=== PATIENT | female | born 1955 | race Caucasian/White ===

== ENCOUNTER → 2017-07-17 | Outpatient (CLI) | payer MEDICARE, MEDICAID | END | disposition home or self-care (01) | LOC: LAB 15:20 | PROVIDERS: ATTEND Urology | DX: N39.0 Urinary tract infection, site not specified (principal); R32 Unspecified urinary incontinence | CPT/HCPCS: 87086 ==

== ENCOUNTER → 2018-07-07 | Outpatient (CLI) | payer MEDICARE, MEDICAID | END | disposition home or self-care (01) | LOC: LAB 14:13 | PROVIDERS: ATTEND Physician Assistant | DX: N39.0 Urinary tract infection, site not specified (principal) | CPT/HCPCS: 87086; 87088; 87186 ==

== ENCOUNTER → 2018-08-18 | Outpatient (CLI) | payer MEDICARE, MEDICAID | END | disposition home or self-care (01) | LOC: LAB 10:43 | PROVIDERS: ATTEND Physician Assistant | DX: N39.0 Urinary tract infection, site not specified (principal) | CPT/HCPCS: 87086 ==

== ENCOUNTER → 2018-10-14 | Outpatient (CLI) | payer MEDICARE, MEDICAID ==
[2018-10-14 08:10] LABS: Urine Bacteria MOD /hpf (None Seen); Urine Blood Negative /uL (Negative); Urine Specific Gravity 1.008 (1.001-1.035); Urine WBC 5 /hpf (0 - 5)
== END | disposition home or self-care (01) ==
LOC: LAB 07:40
PROVIDERS: ATTEND Physician Assistant
DX: N39.0 Urinary tract infection, site not specified (principal)
CPT/HCPCS: 81001; 87086; 87088; 87186

== ENCOUNTER → 2018-11-13 | Outpatient (CLI) | payer MEDICARE, MEDICAID | END | disposition home or self-care (01) | LOC: LAB 16:21 | PROVIDERS: ATTEND Urology | DX: N39.0 Urinary tract infection, site not specified (principal) | CPT/HCPCS: 87086; 87088; 87186 ==

== ENCOUNTER → 2018-11-18 | Outpatient (CLI) | payer MEDICARE, MEDICAID | END | disposition home or self-care (01) | LOC: US 08:08 | PROVIDERS: ATTEND Urology | DX: N83.292 Other ovarian cyst, left side (principal); N83.291 Other ovarian cyst, right side; N39.0 Urinary tract infection, site not specified | CPT/HCPCS: 76775; 76856 ==

== ENCOUNTER → 2019-03-19 | Day surgery (SDC) | payer MEDICARE, MEDICAID ==
[2019-03-16 10:22] LABS: Basophils # (auto) 0 uL; Basophils % (auto) 0.7 % (0.0-2.0); Eosinophils # (auto) 0.1 uL; Eosinophils % (auto) 2.3 % (0.0-7.0); Hematocrit 47.7 % (36.0-46.0); Hemoglobin 15.7 g/dL (12.2-16.2); Lymphocytes # (auto) 1.8 uL; Lymphocytes % (auto) 32.1 % (10.0-50.0); Mean Corpuscular Hemoglobin 28.3 pg (28.0-32.0); Mean Corpuscular Volume 85.6 fL (80.0-100.0); Monocytes # (auto) 0.6 uL; Monocytes % (auto) 9.9 % (0.0-12.0); Neutrophils # (auto) 3.1 uL; Nucleated Red Blood Cells % 0.1 %; Platelet Count (auto) 228 10^3/uL (140-450); Red Blood Cells 5.57 10^6/uL (4.0-5.20); Red Cell Distribution Width 14.4 % (11.8-14.3); White Blood Cell 5.7 10^3/uL (4.4-10.8)
[2019-03-16 10:26] LABS: Urine Bacteria FEW /hpf (None Seen); Urine Blood Negative /uL (Negative); Urine Specific Gravity 1.009 (1.001-1.035); Urine WBC 7 /hpf (0 - 5)
[2019-03-16 10:40] LABS: INR 0.94 (0.9-1.15); Partial Thromboplastin Time 24.1 sec (23.64-32.05)
[2019-03-16 11:32] LABS: Potassium 4.2 mmol/L (3.5-5.1)
[2019-03-16 11:38] LABS: Albumin 3.8 g/dL (3.4-5.0); Bilirubin, Total 0.7 mg/dL (0.2-1.0); Calcium 9.7 mg/dL (8.5-10.1)
[~2019-03-19] VITALS: Ht 160 cm; Wt 77.1 kg
[~2019-03-19] MED LIST: CELE200C PO; CHOL500023 PO; CIPROFLOXACIN 400MG/200ML 200 ML IV ONE; DIAZ10TA PO; DULO60CA PO; HYDROmorphone HCL 2 MG/ML VL IV PRN; METF-370 PO; METOCLOPRAMIDE HCL 5MG/ml INJ 2ml VIAL IV ONE; MIDAZOLAM HCL 1MG/1ML-2 ML VIAL ONE; MIRT30TA PO; ONDANSETRON HCL 4 MG/2 ML VIAL IV ONE; ONDANSETRON HCL 4 MG/2 ML VIAL ONE; OXYB5TAB24 PO; PROPOFOL 10 MG/ML 20 ML IV ONE; SODIUM CHLORIDE LOCK 10 ML ONE; SULF800T7 PO; TIZA4CAP PO; TRAM50TA2 PO; fentaNYL CITRATE 100 MCG/2 ML VL ONE
[2019-03-19 12:23] VITALS: BP 148/76
== END | disposition home or self-care (01) ==
LOC: SUR 07:36
PROVIDERS: ATTEND Urology
DX: N32.89 Other specified disorders of bladder (principal); N31.9 Neuromuscular dysfunction of bladder, unspecified; N39.0 Urinary tract infection, site not specified; E11.9 Type 2 diabetes mellitus without complications; F32.9 Major depressive disorder, single episode, unspecified; F41.9 Anxiety disorder, unspecified; E66.9 Obesity, unspecified; Z68.30 Body mass index [BMI] 30.0-30.9, adult; Z88.8 Allergy status to other drugs, medicaments and biological substances; Z79.899 Other long term (current) drug therapy; Z87.891 Personal history of nicotine dependence; Z98.51 Tubal ligation status; Z98.890 Other specified postprocedural states
CPT/HCPCS: 36415; 52000; 80053; 81001; 82962; 85025; 85610; 85730; C1769; J0744; J2250; J2405; J2704; J3010; J7030

== ENCOUNTER → 2019-06-12 | Outpatient (CLI) | payer MEDICARE, MEDICAID ==
[~2019-06-12] MED LIST changes: -CIPROFLOXACIN 400MG/200ML 200 ML IV ONE; -HYDROmorphone HCL 2 MG/ML VL IV PRN; -METOCLOPRAMIDE HCL 5MG/ml INJ 2ml VIAL IV ONE; -MIDAZOLAM HCL 1MG/1ML-2 ML VIAL ONE; -ONDANSETRON HCL 4 MG/2 ML VIAL IV ONE; -ONDANSETRON HCL 4 MG/2 ML VIAL ONE; -PROPOFOL 10 MG/ML 20 ML IV ONE; -SODIUM CHLORIDE LOCK 10 ML ONE; -fentaNYL CITRATE 100 MCG/2 ML VL ONE
== END | disposition home or self-care (01) ==
LOC: LAB 11:46
PROVIDERS: ATTEND Nurse Practitioner Family
DX: N39.0 Urinary tract infection, site not specified (principal)
CPT/HCPCS: 87086; 87088; 87186

== ENCOUNTER → 2019-09-11 | Outpatient (CLI) | payer MEDICARE, MEDICAID ==
[2019-09-11 15:36] LABS: Urine Bacteria FEW /hpf (None Seen); Urine Blood Negative /uL (Negative); Urine Specific Gravity 1.014 (1.001-1.035); Urine WBC 9 /hpf (0 - 5)
== END | disposition home or self-care (01) ==
LOC: LAB 14:18
PROVIDERS: ATTEND Hospitalist
DX: N39.0 Urinary tract infection, site not specified (principal)
CPT/HCPCS: 81001; 87086

== ENCOUNTER 2025-02-11 15:08 | Inpatient (IN) | payer MEDICARE, MEDICAID ==
[~2025-02-11] VITALS: Ht 160 cm; Wt 61.5 kg
[~2025-02-11 15:08] MED LIST changes: -DIAZ10TA PO; +DIAZ10TA66 PO; -DULO60CA PO; +DULO60CA41 PO; +MIRT-94 PO; -MIRT30TA PO; +SULF800T23 PO; -SULF800T7 PO
--- NOTE | 2025-02-11 15:32 | ED.PDOC ---
Musculoskeletal HPI Comments 69 y/o F, EM, presents to the ED Via EMS for CC s/p right femur injury. Per EMS, patient is coming from [facility] where she presented for right hip pain after her inpatient care manager rn was moving her right extremity to place a Giron catheter. EMS states, patient had imagining done and was refereed to the ED by Dr. Pemberton for a further evaluation regarding a surgical consult for displaced right femoral fracture. Patient endorses, being a paraplegic. Patient denies any current pain or other musculoskeletal injury. No other symptoms or modifying factors present at this time. Chief Complaint: Lower Extremity Time Seen by MD: 15:10 Reviewed Notes: Nurses Notes, Photo Checker Notes, Medications, Allergies Allergies: Uncoded Allergies: BLOOD THINNERS (Adverse Reaction, Severe, 03/16/19) Home Meds Reported Medications Cholecalciferol (VITAMIN D3) 5,000 Unit Tab, 5000 UNIT PO DAILY, TAB 03/16/19 Metformin Hydrochloride (Metformin Hcl) 500 Mg Tab, 500 MG PO DAILY for 30 Days, MG 03/16/19 Mirtazapine (REMERON) 30 Mg Tab, 1 TAB PO HS, #30 TAB 1 Refill 03/16/19 Celecoxib (Celebrex) 200 Mg Cap, 1 CAP PO BID, #30 CAP 2 Refills 03/16/19 Duloxetine Hcl (Cymbalta) 60 Mg Cap, 1 CAP PO DAILY, #90 CAP 3 Refills 03/16/19 Sulfamethoxazole W/Trimethopri (Trimethoprim/Sulfamethoxa) 1 Tab Tab, 1 TAB PO HS, #14 TAB 03/16/19 Diazepam (Valium) 10 Mg Tab, 1 TAB PO PRN, #30 TAB 03/16/19 Tizanidine Hydrochloride (Zanaflex) 4 Mg Cap, 1 CAP PO HS, #30 CAP 03/16/19 Tramadol Hcl (Tramadol Hcl) 50 Mg Tab, 2 TAB PO Q6HP PRN for MODERATE PAIN, MG 03/16/19 Oxybutynin Chloride (Ditropan Xl) 5 Mg Tab, 5 MG PO TID for 30 Days, MG 03/16/19 Information Source: Patient, Emergency Med Personnel Mode of Arrival: EMS Location: Right Extremity Location: Femur, Hip Timing: Minutes Prehospital treatment: None Severity: Moderate Able to Move Extremity: No Bear Weight: No Pain: Moderate Mechanism: Twisting Onset of Symptoms: After Trauma Symptoms: Pain DVT Risk Factors: NONE Last Tetanus: Unknown History of: Hip Fracture Associated signs and symptoms: Hip pain Past Medical History PAST MEDICAL HISTORY: Denies Surgical History: Unknown LITIGATION COUNSEL History: Unknown Family History Family History: Unknown Social History Smoker: Non-Smoker Alcohol: Denies ETOH Use Drugs: Denies Drug Use Lives In: Home Constitutional: denies: chills, diaphoresis, fatigue, fever, malaise, sweats, weakness, others EENTM: denies: blurred vision, double vision, ear bleeding, ear discharge, ear drainage, ear pain, ear ringing, eye pain, eye redness, hearing loss, mouth pain, mouth swelling, nasal discharge, nose bleeding, nose congestion, nose pain, photophobia, tearing, throat pain, throat swelling, voice changes, others Respiratory: denies: cough, hemoptysis, orthopnea, SOB at rest, shortness of breath, SOB with excertion, stridor, wheezing, others Cardiovascular: denies: chest pain, dizzy spells, diaphoresis, Dyspnea on exertion, edema, irregular heart beat, left arm pain, lightheadedness, palpitations, PND, syncope, others Gastrointestinal: denies: abdomen distended, abdominal pain, blood streaked bowels, constipated, diarrhea, dysphagia, difficulty swallowing, hematemesis, melena, nausea, poor appetite, poor fluid intake, rectal bleeding, rectal pain, vomiting, others Genitourinary: denies: abnormal vagina bleeding, burning, dyspareunia, dysuria, flank pain, frequency, hematuria, incontinence, pain, , vagina d ischarge, urgency, others Neurological: denies: dizziness, fainting, headache, left sided numbness, left sided weakness, numbness, paresthesia, pre-existing deficit, right sided numbness, right sided weakness, seizure, speech problems, tingling, tremors, weakness, others Musculoskeletal: reports: others (right hip pain); denies: back pain, gout, joint pain, joint swelling, muscle pain, muscle stiffness, neck pain Integumetry: denies: bruises, change in color, change in hair/nails, dryness, laceration, lesions, lumps, rash, wounds, others Allergic/Immunocompromised: denies: Difficulty Healing, Frequent Infections, Hives, Itching, others Hematologic/Lymphatic: denies: anemia, blood clots, easy bleeding, easy bruising, swollen glands, others Endocrine: denies: excessive hunger, excessive sweating, excessive thirst, excessive urination, flushing, intolerance to cold, intolerance to heat, unexplained weight gain, unexplained weight loss, others Psychiatric: denies: anxiety, bipolar disorder, depression, hopeless, panic disorder, schizophrenia, sleepless, suicidal, others All Other Systems: Reviewed and Negative Physical Exam General Appearance: Moderate Distress ([id number] distress due to right- sided hip pain concerns. At time of evaluation, patient did not need additional pain medication.), Normal HEENT: Normal ENT Inspection, Pharynx Normal, TMs Normal Neck: Full Range of Motion, Non-Tender, Normal, Normal Inspection Respiratory: Chest Non-Tender, Lungs Clear, No Accessory Muscle Use, No Respiratory Distress, Normal Breath Sounds Cardiovascular: No Edema, No JVD, No Murmur, No Gallop, Normal Peripheral Pulses, Regular Rate/Rhythm Breast Exam: Deferred Gastrointestinal: No Organomegaly, Non Tender, No Pulsatile Mass, Normal Bowel Sounds, Soft Genitalia: Deferred Pelvic: Deferred Rectal: Deferred Extremities: Other ( Patient displays exquisite tenderness to palpation throughout the right hip on range of motion attempts. Patient appears to have a femoral neck fracture. Valgus display of the right leg.) Neurologic: Alert Cerebellar Function: Normal Reflexes: NOT DONE Skin: Dry, Wounds ( patient displays significant bedsores out the sacral region as well as hip region. Wounds are penetrating. Wounds will require imaging evaluation.) Lymphatic: No Adenopathy Was a procedure done? Was a procedure done?: No Differential Diagnosis EXT Differential Diagnosis: Fracture X-Ray, Labs, Meds, VS Vital Signs Date Time Temp Pulse Resp B/P (MAP) Pulse Ox O2 Delivery O2 Flow Rate FiO2 02/11/25 21:21 92 18 106/65 02/11/25 19:53 93 21 118/55 (76) 95 02/11/25 19:50 18 Room Air* 0 21 02/11/25 17:15 94 22 94/46 (62) 95 02/11/25 16:13 97.7 95 18 104/44 (64) 96 97.7 02/11/25 16:08 Room Air* 0 21 02/11/25 15:13 97.9 102 14 118/72 (87) 95 97.9 Lab Test 02/11/25 20:47 02/11/25 18:44 02/11/25 16:19 Range/Units Urine Color Yellow Yellow Urine Clarity Turbid H Clear Urine pH 6.0 5.0-9.0 Urine Specific Pierce 1.031 1.001-1.035 Urine Protein 1+ H Negative Urine Ketones 1+ H Negative Urine Blood Negative Negative /uL Urine Nitrite Negative Negative Urine Bilirubin Negative Negative Urine Urobilinogen Normal Negative mg/dL Urine Leukocyte Esterase Trace Negative /uL Urine RBC <1 0 - 4 /hpf Urine Microscopic WBC 25 H 0-5 /HPF Urine Squamous Epithelial Cells Mod <5 /hpf Urine Bacteria Few H None Seen /hpf Urine Hyaline Casts Mod 0 - 2 /lpf Urine Mucus Few None Seen Urine Yeast (Budding) Few None Seen /hpf Urine Glucose Normal Normal mg/dL Lactic Acid Level 3.0 *H 3.4 *H 0.4-2.0 mmol/L White Blood Count 13.8 H 4.4-10.8 10^3/uL Red Blood Count 3.44 L 4.0-5.20 10^6/uL Hemoglobin 8.2 L 12.2-16.2 g/dL Hematocrit 26.0 L 36.0-46.0 % Mean Corpuscular Volume 75.7 L 80.0-100.0 fL Mean Corpuscular Hemoglobin 23.9 L 28.0-32.0 pg Mean Corpuscular Hemoglobin Concent 31.6 L 32.0-36.0 g/dL Red Cell Distribution Width 18.0 H 11.8-14.3 % Platelet Count 519 H 140-450 10^3/uL Mean Platelet Volume 7.0 6.9-10.8 fL Neutrophils (%) (Auto) 89.5 H 37.0-80.0 % Lymphocytes (%) (Auto) 5.5 L 10.0-50.0 % Monocytes (%) (Auto) 5.0 0.0-12.0 % Eosinophils (%) (Auto) 0.0 0.0-7.0 % Basophils (%) (Auto) 0.0 0.0-2.0 % Neutrophils # (Auto) 12.4 H 1.6-8.6 10 ^3/uL Lymphocytes # (Auto) 0.8 0.4-5.4 10 ^3/uL Monocytes # (Auto) 0.7 0-1.3 10 ^3/uL Eosinophils # (Auto) 0 0-0.8 10 ^3/uL Basophils # (Auto) 0 0-0.2 10 ^3/uL Nucleated Red Blood Cells 0.0 % Prothrombin Time 11.2 9.3-11.8 sec Prothrombin Time INR 1.06 0.9-1.15 Sodium Level 136 136-145 mmol/L Potassium Level 3.7 3.5-5.1 mmol/L Chloride Level 103 98-107 mmol/L Carbon Dioxide Level 23 20-31 mmol/L Anion Gap 10 5-15 Blood Urea Nitrogen 19 9-23 mg/dL Creatinine 0.44 L 0.550-1.02 mg/dL Glomerular Filtration Rate Calc 104 >90 mL/min BUN/Creatinine Ratio 43.2 H 10.0-20.0 Serum Glucose 140 H 74-106 mg/dL Calcium Level 10.1 8.7-10.4 mg/dL Total Bilirubin 0.4 0.2-1.0 mg/dL Aspartate Amino Transferase (AST) 11 L 13-40 U/L Alanine Aminotransferase (ALT) < 9 7-40 U/L Alkaline Phosphatase 79 46-116 U/L Troponin I High Sensitivity < 3 L </=34 ng/L Total Protein 6.0 5.7-8.2 g/dL Albumin 3.3 3.2-4.8 g/dL Lipase 20 12-53 U/L Current Medications Medications (Trade) Dose Ordered Sig/Adore Route Start Time Stop Time Status Last Admin Sodium Chloride 1,000 ml @ 150 mls/hr Q6H40M ONCE IV 02/11/25 17:30 02/12/25 00:09 02/11/25 17:31 Hydromorphone HCl (Dilaudid Injection) 0.5 mg ONCE ONCE IV 02/11/25 21:15 02/11/25 21:16 DC 02/11/25 21:[address] [address] Ph: [phone] DIAGNOSTIC IMAGING Diagnostic Imaging Report : [id number] Signed PATIENT: AYO JENSEN ACCT: [id number] UNIT: [id number] : 1955 LOC: ER ROOM / BED: / AGE / SEX: 69 / F ADM STATUS: REG ER SERVICE 1602 ORDERING PHYSICIAN: BAILEY KOCH PAC PROCEDURE(s): CXRP - CHEST PORTABLE REASON: Shortness of breath ORDER NUMBER(s): [id number], ACCESSION NUMBER(s): [id number] CHEST RADIOGRAPH Indication: Shortness of breath Technique: Single frontal view of the chest was obtained COMPARISON: None FINDINGS: Lines and Tubes: Right PICC in satisfactory position Lungs: Congestion Pleura: No effusion. No pneumothorax. Cardiomediastinal contours: Unremarkable Bones: Unremarkable IMPRESSION: Pulmonary vascular congestion Right PICC in satisfactory position. ATED BY: JIMMY FORBES MD DICTATED DATE/TIME: 02/11/25 163 SIGNED BY: JIMMY FORBES MD SIGNED DATE/TIME: 02/11/25 163 CC: X-Ray, Labs, Meds, VS Comment Contacted Dr. Pemberton and discuss the original imaging study which Dr. Pemberton reviewed himself. He advised him in the patient and he will perform an ORIF procedure tomorrow. Patient received a prophylactic Zosyn dispensing.Additional studies were ascertain due to significant bed sores. It appears that there is an anastomose from those bed sores towards the hip. Technically, patient is suffering from an open fracture. Patient will require extensive wound management and home health would management moving forward. Time of 1ST Reevaluation: 21:50 Reevaluation 1ST: Unchanged Consultation: Surgery Patient Education/Counseling: Diagnosis, Treatment Family Education/Counseling: Diagnosis, Treatment, No Family Present Departure 1 Departure Time of Disposition: 21:52 Impression: Primary Impression: Femoral neck fracture Additional Impressions: Cellulitis Anemia Elevated lactic acid level Disposition: ADMITTED INPATIENT Condition: Fair Discharged With: Self, Relative Critical Care Note Critical Care Time?: No Stability Stability form required: No Heart Score Heart Score: Heart Score Response (Comments) Value History N/A 0 EKG N/A 0 Age N/A 0 Risk Factors N/A 0 Troponin N/A 0 Total 0 I personally scribed for BAILEY KOCH PAC ([email or web address]) on 02/11/25 at 15:32. Electronically submitted by Carla Robin ([email or web address]). I personally scribed for BAILEY KOCH PAC ([email or web address]) on 02/11/25 at 17:48. Electronically submitted by Carla Robin ([email or web address]). BAILEY KOCH PAC Feb 11, 2025 15:32
--- NOTE | 2025-02-11 16:35 | DVH ---
CHEST RADIOGRAPH Indication: Shortness of breath Technique: Single frontal view of the chest was obtained COMPARISON: None FINDINGS: Lines and Tubes: Right PICC in satisfactory position Lungs: Congestion Pleura: No effusion. No pneumothorax. Cardiomediastinal contours: Unremarkable Bones: Unremarkable IMPRESSION: Pulmonary vascular congestion Right PICC in satisfactory position.
[2025-02-11 16:38] LABS: Basophils # (auto) 0 10 ^3/uL (0-0.2); Eosinophils # (auto) 0 10 ^3/uL (0-0.8); Hemoglobin 8.2 g/dL (12.2-16.2); Lymphocytes # (auto) 0.8 10 ^3/uL (0.4-5.4); Lymphocytes % (auto) 5.5 % (10.0-50.0); Mean Corpuscular Hemoglobin 23.9 pg (28.0-32.0); Mean Corpuscular Hgb Conc. 31.6 g/dL (32.0-36.0); Mean Corpuscular Volume 75.7 fL (80.0-100.0); Monocytes # (auto) 0.7 10 ^3/uL (0-1.3); Neutrophils # (auto) 12.4 10 ^3/uL (1.6-8.6); Neutrophils % (auto) 89.5 % (37.0-80.0); Platelet Count (auto) 519 10^3/uL (140-450); Red Blood Cells 3.44 10^6/uL (4.0-5.20); White Blood Cell 13.8 10^3/uL (4.4-10.8)
[2025-02-11 16:54] LABS: INR 1.06 (0.9-1.15); Prothrombin Time 11.2 sec (9.3-11.8)
[2025-02-11 16:58] LABS: Albumin 3.3 g/dL (3.2-4.8); Alkaline Phosphatase 79 U/L (46-116); Anion Gap 10 (5-15); BUN/Creatinine Ratio 43.2 (10.0-20.0); Bilirubin, Total 0.4 mg/dL (0.2-1.0); Blood Urea Nitrogen 19 mg/dL (9-23); Calcium 10.1 mg/dL (8.7-10.4); Carbon Dioxide 23 mmol/L (20-31); Chloride 103 mmol/L (98-107); Lipase 20 U/L (12-53); Potassium 3.7 mmol/L (3.5-5.1)
[2025-02-11 17:01] LABS: Alanine Aminotransferase < 9 U/L (7-40); Aspartate Aminotransferase 11 U/L (13-40); Glucose 140 mg/dL (74-106); Sodium 136 mmol/L (136-145)
[2025-02-11 17:15] LABS: Lactic Acid w/Reflex 3.4 mmol/L (0.4-2.0)
[2025-02-11] MEDS: SODIUM CHLORIDE 0.9% 1,000 ML IV ONE (17:31)
[2025-02-11 19:50] VITALS: RESP 18
[2025-02-11] MEDS: IOHEXOL 300 MG/ML 100ML BOTTLE IJ ONE (20:25)
--- NOTE | 2025-02-11 21:14 | DVH ---
Exam: CT CT AB PEL WITH IV CON ONLY History: Evaluation of penetrating bedsores throughout the sacrum Comparison Study: None Contrast: Type of contrast: Contrast injected: Contrast wasted: 0 TECHNIQUE: Multidetector CT of abdomen pelvis with IV contrast. Radiation Dose Information: CT Dose: CTDI volume is 8.36 mGy. Dose-length product is 498.39 mGy*cm FINDINGS: There are bilateral large effusions in the lung bases consolidative atelectasis involving the right p osterior lower lobe heart is still within normal limits for size the esophagus is unremarkable. Adrenals and kidneys demonstrate a simple cyst involving the right kidney. There are dense calcifica tions in the abdominal aorta including the origins of the superior mesenteric artery in the renal art eries. Gallbladder is filled with fluid there is anasarca There is a dislocated fracture involving the proximal right femur fracture is sub trochanteric. There appears to be a large abscess involving the right lower extremity associated with a fracture. And th ere is gas tracking along the right femoral shaft gas is tracking along the right flank. Patient has a large stool burden small bowel is dilated the normal limits dilated fluid 4 cm which is abnormal. P ptia has a benavides catheter in the bladder uterus is retroverted appear to be large bilateral ovarian cysts the left cyst measures 6.05 cm in the right ovarian cyst measures 6.7 cm IMPRESSION: There is a fractured right femur subtrochanteric and is dislocated and there is a large abscess assoc iated with the fracture and there is gas tracking along the right femoral shaft and also along the ri ght flank where there is an open wound and associated with a fracture. There is severe constipation and There is also small-bowel ileus patient appears to have bilateral ov mattie cysts. There are bilateral large pleural effusions lung bases along with consolidate in the rig ht posterior lung base. There is also anasarca.
[2025-02-11] MEDS: HYDROmorphone HCL 2 MG/ML VL/or syr IV ONE (21:21)
[2025-02-11 21:36] LABS: Urine Bacteria FEW /hpf (None Seen); Urine Blood Negative /uL (Negative); Urine Budding Yeast FEW /hpf (None Seen); Urine Clarity Turbid (Clear); Urine Color Yellow (Yellow); Urine Hyaline Cast MOD /lpf (0 - 2); Urine Mucus FEW (None Seen); Urine Protein, UAD 1+ (Negative); Urine Specific Gravity 1.031 (1.001-1.035); Urine Squamous Epithelial Cell MOD /hpf (<5); Urine Urobilinogen Normal (Negative); Urine WBC 25 /HPF (0-5)
[2025-02-11] MEDS: PIPERACILLIN-TAZOB 3.375GM 100 ML IV ONE (22:15)
[2025-02-11] MEDS ORDERED: VANCOMYCIN PER PHARMACY 0 MG IV SCH (23:15)
[2025-02-11] MEDS ORDERED: ONDANSETRON HCL 4 MG/2 ML VIAL IV PRN (23:15)
--- NOTE | 2025-02-11 23:17 | DVHHPRES ---
History of Present Illness Resident Creating Document: LIONEL REID RESIDENT History of Present Illness Is a 69-year-old paraplegic female with past medical history of diabetes, neurogenic bladder, spinal aneurysm?, who comes in due to right femoral fracture. According to the patient and daughter at bedside, yesterday on 02/10/2025 as she was having her self catheter changed by her caregiver, they heard a pop and subsequently her right leg gave way. Patient went to urgent Care, and had imaging study done, upon arrival to the ER discussion was held with orthopedic Dr. Pemberton, who reviewed the imaging study and advised he will perform ORIF tomorrow. Per patient and daughter at bedside, patient was recently discharged 3 days ago from [facility] due to extensive sacral ulcers and wounds. On review of systems patient is complaining of fatigue, fever, shortness of breaths. CT abdomen pelvis showed fractured right femur subtrochanteric, large abscess associated with fracture and open wound right flank. Also noted to have severe constipation, small-bowel ileus, bilateral ovarian cysts and a right lung consolidate, anasarca. UA showed 25 WBCs and a few bacteria, CXR showed pulmonary vascular congestion. Past Medical History diabetes, neurogenic bladder, spinal aneurysm? Past Surgical History Tubal ligation ALCOHOL: none Drugs: None Past Social History Smoking: Quit 10 years ago, prior to that was smoking 1 pack per day for 10-15 years. Review of Systems Constitutional: Yes: Fever, Malaise; No: Chills, Sweats, Weakness, Other Eyes: No: Pain, Vision change, Conjunctivae inflammation, Eyelid inflammation, Other, Redness ENT: No: Ear pain, Ear discharge, Nose pain, Nose discharge, Nose congestion, Mouth pain, Mouth swelling, Throat pain, Throat swelling, Other Respiratory: Shortness of breath; No: Cough, Dry, SOB with excertion, Wheezing, Hemoptysis, Pleuritic Pain, Sputum, Wheezing, Other Cardiovascular: No: Chest Pain, Palpitations, Orthopnea, Paroxysmal Noc. Dyspnea, Edema, Lt Headedness, Other Gastrointestinal: No: Nausea, Vomiting, Abdominal Pain, Diarrhea, Constipation, Melena, Hematochezia, Other Genitourinary: No Dysuria, No Frequency, No Incontinence, No Hematuria, No Retention, No Other Musculoskeletal: No: other, neck pain, shoulder pain, arm pain, back pain, hand pain, leg pain, foot pain Skin: No: Rash, Lesions, Jaundice, Bruising, Other Neurological: No: Weakness, Numbness, Incoordination, Change in speech, Confusion, Seizures, Other Allergies: Uncoded Allergies: BLOOD THINNERS (Adverse Reaction, Severe, 03/16/19) Exam Vital Signs Vital Signs Date Time Temp Pulse Resp B/P (MAP) Pulse Ox O2 Delivery O2 Flow Rate FiO2 02/11/25 21:21 92 18 106/65 02/11/25 19:53 95 02/11/25 19:50 Room Air* 0 21 02/11/25 16:13 97.7 97.7 General Appearance: Alert, Oriented X3, Cooperative, No acute distress, Other (Temporal wasting noted) HEENT: Atraumatic, PERRLA, Other (Mucous membranes) Respiratory: Clear to auscultation, Normal air movement Cardiovascular: Regular rate, Normal S1, Normal S2 Abdominal: Normal bowel sounds, Soft, No tenderness Extremities: Other (2+ lower extremity edema up to the knees. Palpable pedal pulses. Bandaged wound right flank.) Neuro: Normal speech, Sensation intact, Other (Patient is bed-bound due to paraplegia since 1985) Psych/Mental Status: Mental status NL, Mood NL Labs/Xrays Labs Test 02/11/25 20:47 02/11/25 18:44 02/11/25 16:19 Range/Units Urine Color Yellow Yellow Urine Clarity Turbid H Clear Urine pH 6.0 5.0-9.0 Urine Specific Napoleon 1.031 1.001-1.035 Urine Protein 1+ H Negative Urine Ketones 1+ H Negative Urine Blood Negative Negative /uL Urine Nitrite Negative Negative Urine Bilirubin Negative Negative Urine Urobilinogen Normal Negative mg/dL Urine Leukocyte Esterase Trace Negative /uL Urine RBC <1 0 - 4 /hpf Urine Microscopic WBC 25 H 0-5 /HPF Urine Squamous Epithelial Cells Mod <5 /hpf Urine Bacteria Few H None Seen /hpf Urine Hyaline Casts Mod 0 - 2 /lpf Urine Mucus Few None Seen Urine Yeast (Budding) Few None Seen /hpf Urine Glucose Normal Normal mg/dL Lactic Acid Level 3.0 *H 0.4-2.0 mmol/L White Blood Count 13.8 H 4.4-10.8 10^3/uL Red Blood Count 3.44 L 4.0-5.20 10^6/uL Hemoglobin 8.2 L 12.2-16.2 g/dL Hematocrit 26.0 L 36.0-46.0 % Mean Corpuscular Volume 75.7 L 80.0-100.0 fL Mean Corpuscular Hemoglobin 23.9 L 28.0-32.0 pg Mean Corpuscular Hemoglobin Concent 31.6 L 32.0-36.0 g/dL Red Cell Distribution Width 18.0 H 11.8-14.3 % Platelet Count 519 H 140-450 10^3/uL Mean Platelet Volume 7.0 6.9-10.8 fL Neutrophils (%) (Auto) 89.5 H 37.0-80.0 % Lymphocytes (%) (Auto) 5.5 L 10.0-50.0 % Monocytes (%) (Auto) 5.0 0.0-12.0 % Eosinophils (%) (Auto) 0.0 0.0-7.0 % Basophils (%) (Auto) 0.0 0.0-2.0 % Neutrophils # (Auto) 12.4 H 1.6-8.6 10 ^3/uL Lymphocytes # (Auto) 0.8 0.4-5.4 10 ^3/uL Monocytes # (Auto) 0.7 0-1.3 10 ^3/uL Eosinophils # (Auto) 0 0-0.8 10 ^3/uL Basophils # (Auto) 0 0-0.2 10 ^3/uL Nucleated Red Blood Cells 0.0 % Prothrombin Time 11.2 9.3-11.8 sec Prothrombin Time INR 1.06 0.9-1.15 Sodium Level 136 136-145 mmol/L Potassium Level 3.7 3.5-5.1 mmol/L Chloride Level 103 98-107 mmol/L Carbon Dioxide Level 23 20-31 mmol/L Anion Gap 10 5-15 Blood Urea Nitrogen 19 9-23 mg/dL Creatinine 0.44 L 0.550-1.02 mg/dL Glomerular Filtration Rate Calc 104 >90 mL/min BUN/Creatinine Ratio 43.2 H 10.0-20.0 Serum Glucose 140 H 74-106 mg/dL Calcium Level 10.1 8.7-10.4 mg/dL Total Bilirubin 0.4 0.2-1.0 mg/dL Aspartate Amino Transferase (AST) 11 L 13-40 U/L Alanine Aminotransferase (ALT) < 9 7-40 U/L Alkaline Phosphatase 79 46-116 U/L Troponin I High Sensitivity < 3 L </=34 ng/L Total Protein 6.0 5.7-8.2 g/dL Albumin 3.3 3.2-4.8 g/dL Lipase 20 12-53 U/L Assessment/Plan Assessment/Plan Right femoral subtrochanteric pathologic fracture - CT abdomen pelvis: There is a dislocated fracture involving the proximal right femur, subtrochanteric. There appears to be a large abscess involving the right lower extremity associated with the fracture. Gas tracking along the right femoral shaft, gas is seen tracking along the right flank. - consulted orthopedic - NPO Extensive sacral wounds, infected Sepsis due to above Lactic acidosis, improving - CT abdomen pelvis: Large abscess associated with the fracture and there was gas tracking along the right femoral shaft and also along the right flank where there is an open wound and associated with a fracture. - IV NS 1 L bolus - IV vancomycin, IV Zosyn q.6 hours - acetaminophen 650 mg once, acetaminophen Q 25 mg q.4 - consulted surgery Constipation Small-bowel ileus - per patient she had a large bowel movement on 02/11/2025, CT abdomen pelvis shows severe constipation, small-bowel ileus. - Colace daily b.i.d. - MiraLax daily Right lung consolidate, questionable pneumonia - CXR: Mild cardiomegaly and mild prominence of the central pulmonary vasculature. Small right pleural effusion. - CT abdomen pelvis: Bilateral large pleural effusions lung bases with consolidate in the right posterior lung base. Anasarca. Type 2 diabetes - monitor Bilateral ovarian cysts - CT abdomen pelvis: Left cysts 6.05 cm, right ovarian cyst 6.7 cm - outpatient follow up recommended Acute versus chronic microcytic anemia - monitor DVT prophylaxis: Levonox 40mg Goals of care: Full code, discussed for >16 minutes on 02/11/2025 Plan discussed with patient and patient's daughter at bedside Plan discussed with Dr. Hairston Plan discussed with: Patient, Daughter, Other (RN) My Orders Orders - LIONEL REID RESIDENT Procedure Category Date Status Time Admit ADMIT 02/11/25 Verified 23:03 Allergies GLENDA 02/11/25 Verified 23:03 Code Status CODE 02/11/25 Verified 23:03 Full Liq Diet DIET 02/12/25 Verified Breakfast Acetaminophen Tablet PHA 02/11/25 Verified (Tylenol Tablet) 23:15 Ondansetron Hcl PHA 02/11/25 Verified (Zofran) 23:15 Docusate Sodium PHA 02/11/25 Verified Capsule (Colace 23:15 Complete Blood Count LAB 02/12/25 Verified 04:00 Comprehensive LAB 02/12/25 Verified Metabolic Panel 04:00 Echo 2d Mode Cardiac US 02/11/25 Verified DOP 23:03 Condition: Unstable GLENDA 02/11/25 Verified 23:03 Sequential GLENDA 02/11/25 Verified Compression Device Notify Md Of Changes GLENDA 02/11/25 Verified From Base 23:03 Electrocardigram EKG 02/11/25 Verified 23:03 Chest Two Views XY 02/11/25 Verified Routine 23:03 NS PHA 02/11/25 Verified 23:15 Vancomycin Per PHA 02/11/25 Verified Pharmacy 23:15 Zosyn Extended PHA 02/12/25 Verified Infusion 00:00 Vitamin D, 25-Hydroxy LAB 02/11/25 Verified 23:03 Creatine Kinase LAB 02/11/25 Verified 23:03 * Wound Consult CONS 02/11/25 Verified * Surgical Consult CONS 02/11/25 Verified Consult For Nutrition NOURISH 02/11/25 Verified 23:03 Lactic Acid W/ Reflex LAB 02/11/25 Verified Order 04:00 Polyethylene Glycol PHA 02/11/25 Verified 17g Powder (Miralax 23:15 Polyethylene Glycol PHA 02/12/25 Verified 17g Powder (Miralax 10:00 Date of Service: Feb 11, 2025 Billing Provider: TESHA HAIRSTON MD Common Visit Codes: 07729-[id number] INP/OBS CARE (HIGH) Secondary Visit Codes: 95288-[id number] CARE PLAN 30 MINUTES LIONEL REID Feb 11, 2025 23:17 TESHA HAIRSTON MD Feb 12, 2025 09:58
--- NOTE | 2025-02-12 00:15 | DVH ---
EXAM: XY CHEST TWO VIEWS ROUTINE CLINICAL HISTORY: sob TECHNIQUE: Frontal and lateral views of the chest WID: COMPARISON: None FINDINGS: Lines and tubes: There is a right PICC in place with tip projecting over the low SVC. Chest: Mild cardiomegaly with mild prominence of the central pulmonary vasculature. No pneumothorax. Small right pleural effusion. Right basilar consolidation. The osseous structures are grossly intact. Multilevel thoracic spondylosis. IMPRESSION: Mild cardiomegaly and mild prominence of the central pulmonary vasculature. Small right pleural effus ion.
[2025-02-12] MEDS: SODIUM CHLORIDE 0.9% 1,000 ML IV ONE (00:30)
[2025-02-12] MEDS: POLYETHYLENE GLYCOL 17 GM PWDR PO ONE (00:39)
[2025-02-12] MEDS: VANCOMYCIN 1 GM/200 ML IV ONE (01:31)
[2025-02-12] MEDS: ACETAMINOPHEN 325 MG TAB PO ONE (01:57)
[2025-02-12] MEDS: PIPERACILLIN-TAZOB 3.375GM 100 ML IV SCH (04:12)
[2025-02-12 05:50] LABS: Alkaline Phosphatase 63 U/L (46-116); Anion Gap 7 (5-15); BUN/Creatinine Ratio 55.2 (10.0-20.0); Blood Urea Nitrogen 16 mg/dL (9-23); Calcium 9.1 mg/dL (8.7-10.4); Carbon Dioxide 23 mmol/L (20-31); Glucose 93 mg/dL (74-106); Potassium 3.6 mmol/L (3.5-5.1); Sodium 138 mmol/L (136-145)
[2025-02-12 05:51] LABS: Bilirubin, Total 0.4 mg/dL (0.2-1.0)
[2025-02-12 05:55] LABS: Alanine Aminotransferase < 9 U/L (7-40); Albumin 2.6 g/dL (3.2-4.8); Aspartate Aminotransferase < 8 U/L (13-40); Chloride 108 mmol/L (98-107); Total Protein 4.7 g/dL (5.7-8.2)
[2025-02-12 06:18] LABS: COVID19 ANTIGEN SOFIA FIA NEGATIVE (NEGATIVE); Rapid Influenza A Negative (Negative); Rapid Influenza B Negative (Negative)
--- NOTE | 2025-02-12 06:44 | DVHINCON2 ---
Date of service: Feb 12, 2025 Reason for Consultation Right hip fracture History of Present Illness 69 yo F with recent history of necrotizing fascitis affecting sacrum/buttock towards leg; patient is paraplegic and doesnt ambulate; she was getting moved around by when had a snap in leg; Past Medical History Past Medical History diabetes, neurogenic bladder, Allergies: Uncoded Allergies: BLOOD THINNERS (Adverse Reaction, Severe, 03/16/19) Home Meds Reported Medications Cholecalciferol (VITAMIN D3) 5,000 Unit Tab, 5000 UNIT PO DAILY, TAB 03/16/19 Metformin Hydrochloride (Metformin Hcl) 500 Mg Tab, 500 MG PO DAILY for 30 Days, MG 03/16/19 Mirtazapine (REMERON) 30 Mg Tab, 1 TAB PO HS, #30 TAB 1 Refill 03/16/19 Celecoxib (Celebrex) 200 Mg Cap, 1 CAP PO BID, #30 CAP 2 Refills 03/16/19 Duloxetine Hcl (Cymbalta) 60 Mg Cap, 1 CAP PO DAILY, #90 CAP 3 Refills 03/16/19 Sulfamethoxazole W/Trimethopri (Trimethoprim/Sulfamethoxa) 1 Tab Tab, 1 TAB PO HS, #14 TAB 03/16/19 Diazepam (Valium) 10 Mg Tab, 1 TAB PO PRN, #30 TAB 03/16/19 Tizanidine Hydrochloride (Zanaflex) 4 Mg Cap, 1 CAP PO HS, #30 CAP 03/16/19 Tramadol Hcl (Tramadol Hcl) 50 Mg Tab, 2 TAB PO Q6HP PRN for MODERATE PAIN, MG 03/16/19 Oxybutynin Chloride (Ditropan Xl) 5 Mg Tab, 5 MG PO TID for 30 Days, MG 03/16/19 Current Medications Current Medications Medications (Trade) Dose Ordered Sig/Adore Route PRN Reason Start Time Stop Time Status Last Admin Acetaminophen (Tylenol Tablet) 325 mg Q4HP PRN PO MILD PAIN (1-3 PAIN SCALE) 02/11/25 23:15 Ondansetron HCl (Zofran) 4 mg Q4HP PRN IV NAUSEA / VOMITING 02/11/25 23:15 Docusate Sodium (Colace Capsule) 100 mg BIDPRN PRN PO FOR CONSTIPATION 02/11/25 23:15 Vancomycin HCl 0 ml @ 0 mls/hr UD IV 02/11/25 23:15 UNV Piperacillin Sod/ Tazobactam Sod 100 ml @ 25 mls/hr Q6H IV 02/12/25 04:00 02/12/25 04:12 Polyethylene Glycol (Miralax 17GM Powder) 17 gm DAILY PO 02/12/25 10:00 Review of Systems 10 point ROS is neg except per HPI Vital Signs Vital Signs Date Time Temp Pulse Resp B/P (MAP) Pulse Ox O2 Delivery O2 Flow Rate FiO2 02/12/25 06:02 75 18 102/45 (64) 94 02/12/25 03:07 98.6 02/11/25 19:50 Room Air* 0 21 Physical Exam resting in bed large wounds on lower extremities with erythema unable to move legs at baseline pain with PROM at leg Labs/Diagnostic Data Labs Test 02/12/25 05:03 02/12/25 05:00 02/11/25 23:59 02/11/25 20:47 Range/Units Sodium Level 138 136-145 mmol/L Potassium Level 3.6 3.5-5.1 mmol/L Chloride Level 108 H 98-107 mmol/L Carbon Dioxide Level 23 20-31 mmol/L Anion Gap 7 5-15 Blood Urea Nitrogen 16 9-23 mg/dL Creatinine 0.29 #L 0.550-1.02 mg/dL Glomerular Filtration Rate Calc 115 >90 mL/min BUN/Creatinine Ratio 55.2 H 10.0-20.0 Serum Glucose 93 74-106 mg/dL Hemoglobin A1c < 3.8 <5.7 % A1C Lactic Acid Level 0.9 0.4-2.0 mmol/L Calcium Level 9.1 8.7-10.4 mg/dL Total Bilirubin 0.4 0.2-1.0 mg/dL Aspartate Amino Transferase (AST) < 8 L 13-40 U/L Alanine Aminotransferase (ALT) < 9 7-40 U/L Alkaline Phosphatase 63 46-116 U/L Total Protein 4.7 L 5.7-8.2 g/dL Albumin 2.6 L 3.2-4.8 g/dL Influenza Type A Antigen Negative Negative Influenza Type B Antigen Negative Negative SARS-CoV-2 Antigen (Rapid) Negative NEGATIVE Vitamin D 25-Hydroxy 56.5 30.0-100 ng/mL Urine Color Yellow Yellow Urine Clarity Turbid H Clear Urine pH 6.0 5.0-9.0 Urine Specific [place] 1.031 1.001-1.035 Urine Protein 1+ H Negative Urine Ketones 1+ H Negative Urine Blood Negative Negative /uL Urine Nitrite Negative Negative Urine Bilirubin Negative Negative Urine Urobilinogen Normal Negative mg/dL Urine Leukocyte Esterase Trace Negative /uL Urine RBC <1 0 - 4 /hpf Urine Microscopic WBC 25 H 0-5 /HPF Urine Squamous Epithelial Cells Mod <5 /hpf Urine Bacteria Few H None Seen /hpf Urine Hyaline Casts Mod 0 - 2 /lpf Urine Mucus Few None Seen Urine Yeast (Budding) Few None Seen /hpf Urine Glucose Normal Normal mg/dL Test 02/11/25 16:19 Range/Units Eosinophils (%) (Auto) 0.0 0.0-7.0 % Eosinophils # (Auto) 0 0-0.8 10 ^3/uL Basophils # (Auto) 0 0-0.2 10 ^3/uL Nucleated Red Blood Cells 0.0 % Prothrombin Time 11.2 9.3-11.8 sec Prothrombin Time INR 1.06 0.9-1.15 Creatine Kinase 25 L 34-145 U/L Troponin I High Sensitivity < 3 L </=34 ng/L Lipase 20 12-53 U/L Plan/Recommendation 69 yo F whose paraplegic/ recent hx of nec fasc/ poor medical condition with right hip fracture 1. At this point we rec treating fracture without surgery as patient has a large infection in her extremity and if we put metal inside of her leg this will also get infected 2. Palliative care/hospice consult 3. pain control 4. NWB RLE Plan discussed with: Patient, Other ENOC WELLER MD Feb 12, 2025 06:44
[2025-02-12] MEDS: PANTOPRAZOLE 40 MG/10 ML VIAL INJ IV ONE (07:27)
--- NOTE | 2025-02-12 07:27 | DVH ---
EXAM: US Duplex Right Lower Extremity Veins CLINICAL INDICATION: Right lower limb swelling TECHNIQUE: Real-time duplex ultrasound scan of the right lower extremity veins integrating B-mode tw o-dimensional vascular structure, Doppler spectral analysis, color flow Doppler imaging and compressi on. COMPARISON: None FINDINGS: DEEP VEINS: Unremarkable. No DVT in the visualized common femoral, femoral, proximal deep femoral or popliteal veins. The veins demonstrate normal color flow, are normally compressible, with normal phasic flow and/or augmentation response. SUPERFICIAL VEINS: Unremarkable. No thrombus in the visualized great saphenous vein. SOFT TISSUES: No acute findings. No popliteal cyst. OTHER FINDINGS: . None. IMPRESSION: No DVT.
[2025-02-12 07:47] LABS: Basophils # (auto) 0 10 ^3/uL (0-0.2); Eosinophils # (auto) 0.1 10 ^3/uL (0-0.8); Mean Corpuscular Hemoglobin 24.5 pg (28.0-32.0); Monocytes # (auto) 0.9 10 ^3/uL (0-1.3); Neutrophils # (auto) 4.6 10 ^3/uL (1.6-8.6)
[2025-02-12 07:50] LABS: Basophils % (auto) 0.3 % (0.0-2.0); Eosinophils % (auto) 1.9 % (0.0-7.0); Hematocrit 20.2 % (36.0-46.0); Lymphocytes # (auto) 1.5 10 ^3/uL (0.4-5.4); Lymphocytes % (auto) 21.6 % (10.0-50.0); Mean Corpuscular Hgb Conc. 32.1 g/dL (32.0-36.0); Mean Corpuscular Volume 76.3 fL (80.0-100.0); Monocytes % (auto) 12.1 % (0.0-12.0); Neutrophils % (auto) 64.1 % (37.0-80.0); Platelet Count (auto) 430 10^3/uL (140-450); Red Blood Cells 2.64 10^6/uL (4.0-5.20); Red Cell Distribution Width 18.1 % (11.8-14.3); White Blood Cell 7.2 10^3/uL (4.4-10.8)
[2025-02-12] MEDS: SODIUM CHLORIDE 0.9% 1,000 ML IV SCH (08:00)
[2025-02-12 08:10] LABS: Hemoglobin 6.5 g/dL (12.2-16.2)
[2025-02-12 09:03] LABS: Hypochromia Slight; Platelet Estimate Adequate
[2025-02-12] MEDS: SODIUM CHLORIDE 0.9% 500 ML IV ONE (09:45)
[2025-02-12] MEDS: POLYETHYLENE GLYCOL 17 GM PWDR PO SCH (10:00)
[2025-02-12 14:31] VITALS: BP 127/50; PULSE 95; RESP 18; TEMP 98.1
[2025-02-12] MEDS ORDERED: MORPHINE SULFATE INJ 2 MG/ml SYRG IV PRN (14:45)
[2025-02-12 14:47] VITALS: BP 132/52; PULSE 95; RESP 22; TEMP 98.2
[2025-02-12] MEDS: MORPHINE SULFATE INJ 2 MG/ml SYRG IM ONE (14:56)
[2025-02-12] MEDS: VANCOMYCIN 1.25GM/250ML 250 ML IV SCH (14:57)
[2025-02-12 17:37] VITALS: BP 132/61; PULSE 90; RESP 14; TEMP 98.9
--- NOTE | 2025-02-12 19:08 | DVHPNRES ---
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 According to the patient and daughter at bedside, yesterday on 02/10/2025 as she was having her self catheter changed by her caregiver, they heard a pop and subsequently her right leg gave way. Patient went to urgent Care, and had imaging study done, upon arrival to the ER discussion was held with orthopedic Dr. Pemberton, who reviewed the imaging study and advised he will perform ORIF tomorrow. Per patient and daughter at bedside, patient was recently discharged 3 days ago from [facility] due to extensive sacral ulcers and wounds. She lab workup revealed WBC 13.8, neutrophil 89.5, hemoglobin 8.2 dropped to 6.5 later on, MCV 75.7, RDW 18.0, platelets 519, lactic acid 3.4, albumin 2.6,. CT abdomen pelvis showed fractured right femur subtrochanteric, large abscess associated with fracture and open wound right flank. Also noted to have severe constipation, small-bowel ileus, bilateral ovarian cysts and a right lung consolidate, anasarca. UA showed 25 WBCs and a few bacteria, CXR showed pulmonary vascular congestion. Doppler study of the right lower extremity negative for DVT. Mild cardiomegaly and mild prominence of the central pulmonary vasculature. Small right pleural effusion. 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 Patient was seen today at the bedside. Cardiovascular- deny acute chest pain or shortness of breath or cough or palpitation Respiratory denies cough or short of breath or wheezing Gastrointestinal- denies any rectal bleeding, nausea or vomiting Musculoskeletal-denies acute joint swelling or tenderness or redness Neurological- denies acute dysarthria, dysphagia, change in vision Psychiatry- denies depression or SI or HI Skin- denies acute rash or purpura Patient was seen today for clinical evaluation. Labs and chart reviewed. Patient's hemoglobin dropped from 8.2 to 6.5. Patient had transfusion of 1 unit of packed red blood cell. Patient was seen by Dr. Navarro recommended nonsurgical treatment due to patient's poor medical condition and poor prognosis. Ordered surgery consult with Dr. Richard sauceda. Ordered repeat H&H. Provider spoke with patient's daughter ivis [phone]. Discussed patient's current medical condition and plan of care and answered her question. , Social service consult for hospice care in place. Objective vital signs Vital Sign Date Time Temp Pulse Resp B/P (MAP) Pulse Ox O2 Delivery O2 Flow Rate FiO2 02/12/25 17:37 98.9 90 14 132/61 98.9 02/12/25 16:00 97 02/12/25 07:32 Room Air* 0 21 Total Intake and Output 02/11/25 02/11/25 02/12/25 15:00 23:00 07:00 Intake Total 600 ml 620 ml Balance 600 ml 620 ml medications Current Medications Medications Dose Ordered Sig/Adore Route Start Time Stop Time Status Last Admin Dose Admin Acetaminophen 325 mg Q4HP PRN PO 02/11/25 23:15 Ondansetron HCl 4 mg Q4HP PRN IV 02/11/25 23:15 Docusate Sodium 100 mg BIDPRN PRN PO 02/11/25 23:15 Vancomycin HCl 0 ml @ 0 mls/hr UD IV 02/11/25 23:15 Piperacillin Sod/ Tazobactam Sod 100 ml @ 25 mls/hr Q6H IV 02/12/25 04:00 02/12/25 17:22 25 MLS/HR Polyethylene Glycol 17 gm DAILY PO 02/12/25 10:00 Pantoprazole Sodium 40 mg DAILY IV 02/13/25 10:00 Sodium Chloride 1,000 ml @ 100 mls/hr Q10H IV 02/12/25 08:00 Vancomycin HCl 250 ml @ 200 mls/hr Q12H IV 02/12/25 14:00 02/12/25 14:57 200 MLS/HR Morphine Sulfate 1 mg Q4HP PRN IV 02/12/25 14:45 Examination General examination- patient is awake, alert, oriented HEENT- PEERLA, no acute nasal discharge Cardiovascular- S1-S2 audible, rate and rhythm regular, no murmur Respiratory- CTAB, no wheeze or rhonchi Gastrointestinal-nontender, bowel sound+. Nondistended Musculoskeletal-no acute joint swelling or tenderness or redness Lower extremity- bilateral leg edema, bilateral lower limb weakness, unable to move Neurological- paraplegia Psychiatry- denies depression or SI or HI Skin- no acute rash or purpura laboratory and microbiology Laboratory Tests 02/12/25 07:36 02/12/25 05:03 Test 02/12/25 05:03 Range/Units Serum Glucose 93 74-106 mg/dL Problem List/Assessment/Plan Problem List/Assessment/Plan Assessment and plan-patient with right femur fracture along with abscess, gas around the right femur shaft. Patient was seen by orthopedic surgeon, recommended conservative management due to patient's poor medical condition and poor prognosis. Ordered surgery consult for abscess along the right fracture femur. Patient was kept NPO after midnight for possible surgical intervention. Patient had severe anemia, status post 1 unit packed red blood cell transfusion. Social service consult for hospice in place. Right femoral subtrochanteric pathologic fracture - CT abdomen pelvis: There is a dislocated fracture involving the proximal right femur, subtrochanteric. There appears to be a large abscess involving the right lower extremity associated with the fracture. Gas tracking along the right femoral shaft, gas is seen tracking along the right flank. - consulted orthopedic-Dr. Zelaya recommended for nonsurgical treatment, - ordered surgery consult-Dr. Richard Sauceda #Extensive sacral wounds, infected Sepsis due to above Lactic acidosis, improving - Large abscess associated with the fracture right femur - CT abdomen pelvis: Large abscess associated with the fracture and there was gas tracking along the right femoral shaft and also along the right flank where there is an open wound and associated with a fracture. - continue IV fluid as prescribed - IV vancomycin, IV Zosyn q.6 hours - acetaminophen 650 mg once, acetaminophen Q 25 mg q.4 - surgeon consult in place # severe anemia likely microcytic hypochromic -status post 1 unit blood transfusion Small-bowel ileus - per patient she had a large bowel movement on 02/11/2025, CT abdomen pelvis shows severe constipation, small-bowel ileus. -continue current management Right lung consolidate, questionable pneumonia Bilateral pleural effusion - CXR: Mild cardiomegaly and mild prominence of the central pulmonary vasculature. Small right pleural effusion. - CT abdomen pelvis: Bilateral large pleural effusions lung bases with consolidate in the right posterior lung base. Anasarca. 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 Gusman , nursing staff, Total time spent on patient evaluation, chart review, assessment and plan, discussion discussion >35 minutes Plan discussed with: Patient, Daughter, Other (RN) My Orders My Orders Orders - GIANCARLO MARTIN Procedure Category Date Status Time Pantoprazole PHA 02/13/25 In Process (Protonix) 10:00 Sodium Chloride 0.9% PHA 02/12/25 In Process 08:00 Communication Order ORDERS 02/12/25 Transmitted 14:11 * Cardiology Consult CONS 02/12/25 Transmitted 14:11 Morphine Sulfate PHA 02/12/25 In Process Injection 14:45 * Staff Midwife CONS 02/12/25 Transmitted Consult Hemoglobin & LAB 02/12/25 Logged Hematocrit 17:40 * Surgical Consult CONS 02/12/25 Transmitted Clear Liq Diet DIET 02/13/25 Transmitted Breakfast Npo After Midnight ORDERS 02/12/25 Transmitted Npo (Nothing By DIET 02/13/25 Transmitted Mouth) Diet Breakfast Date of Service: Feb 12, 2025 Billing Provider: LEVY RIDLEY MD Common Visit Codes: 30189-[id number] INP/OBS CARE(HIGH) GIANCARLO MARTIN Feb 12, 2025 19:08 LEVY RIDLEY MD Feb 17, 2025 01:21
[2025-02-12 19:18] VITALS: PULSE 92; RESP 25; O2SAT 96
[2025-02-12 19:36] LABS: Hematocrit 25.9 % (36.0-46.0); Hemoglobin 8.4 g/dL (12.2-16.2)
[2025-02-12 20:09] VITALS: PULSE 76; RESP 16
[2025-02-12 21:00] VITALS: BP 129/53; PULSE 90; RESP 16; TEMP 98.2; O2SAT 95
[2025-02-12] MEDS: HYDROmorphone HCL 2 MG/ML VL/or syr IV ONE (23:48)
[2025-02-13] VITALS (8 sets, daily range): BP systolic 121–139; BP diastolic 58–69; PULSE 76–90; RESP 14–19; TEMP 97.7–98.3; O2SAT 94–97
[2025-02-13 06:07] LABS: Basophils # (auto) 0 10 ^3/uL (0-0.2); Basophils % (auto) 0.5 % (0.0-2.0); Hemoglobin 7.9 g/dL (12.2-16.2); Lymphocytes # (auto) 1.7 10 ^3/uL (0.4-5.4); Mean Corpuscular Volume 78.2 fL (80.0-100.0); Monocytes # (auto) 0.8 10 ^3/uL (0-1.3); White Blood Cell 7.8 10^3/uL (4.4-10.8)
[2025-02-13 06:10] LABS: Eosinophils # (auto) 0.3 10 ^3/uL (0-0.8); Eosinophils % (auto) 3.2 % (0.0-7.0); Hematocrit 24.2 % (36.0-46.0); Lymphocytes % (auto) 22.2 % (10.0-50.0); Mean Corpuscular Hemoglobin 25.7 pg (28.0-32.0); Mean Corpuscular Hgb Conc. 32.9 g/dL (32.0-36.0); Monocytes % (auto) 9.8 % (0.0-12.0); Neutrophils % (auto) 64.3 % (37.0-80.0); Platelet Count (auto) 420 10^3/uL (140-450); Red Blood Cells 3.09 10^6/uL (4.0-5.20); Red Cell Distribution Width 17.4 % (11.8-14.3)
[2025-02-13 06:36] LABS: Alkaline Phosphatase 65 U/L (46-116); Anion Gap 11 (5-15); Blood Urea Nitrogen 10 mg/dL (9-23); Calcium 8.8 mg/dL (8.7-10.4); Carbon Dioxide 22 mmol/L (20-31); Glucose 87 mg/dL (74-106); Sodium 141 mmol/L (136-145)
[2025-02-13 06:37] LABS: Aspartate Aminotransferase 13 U/L (13-40); Bilirubin, Total 0.6 mg/dL (0.2-1.0)
[2025-02-13 06:51] LABS: Alanine Aminotransferase < 9 U/L (7-40); Albumin 2.7 g/dL (3.2-4.8); Chloride 108 mmol/L (98-107); Magnesium 1.6 mg/dL (1.6-2.6); Potassium 2.7 mmol/L (3.5-5.1); Total Protein 4.9 g/dL (5.7-8.2)
[2025-02-13] MEDS: PANTOPRAZOLE 40 MG/10 ML VIAL INJ IV SCH (10:13)
--- NOTE | 2025-02-13 11:47 | DVHINCON2 ---
Date of service: Feb 13, 2025 Family History: Patient reports no known family medical history. Allergies: Uncoded Allergies: BLOOD THINNERS (Adverse Reaction, Severe, 03/16/19) Home Meds Reported Medications Cholecalciferol (VITAMIN D3) 5,000 Unit Tab, 5000 UNIT PO DAILY, TAB 03/16/19 Metformin Hydrochloride (Metformin Hcl) 500 Mg Tab, 500 MG PO DAILY for 30 Days, MG 03/16/19 Mirtazapine (REMERON) 30 Mg Tab, 1 TAB PO HS, #30 TAB 1 Refill 03/16/19 Celecoxib (Celebrex) 200 Mg Cap, 1 CAP PO BID, #30 CAP 2 Refills 03/16/19 Duloxetine Hcl (Cymbalta) 60 Mg Cap, 1 CAP PO DAILY, #90 CAP 3 Refills 03/16/19 Sulfamethoxazole W/Trimethopri (Trimethoprim/Sulfamethoxa) 1 Tab Tab, 1 TAB PO HS, #14 TAB 03/16/19 Diazepam (Valium) 10 Mg Tab, 1 TAB PO PRN, #30 TAB 03/16/19 Tizanidine Hydrochloride (Zanaflex) 4 Mg Cap, 1 CAP PO HS, #30 CAP 03/16/19 Tramadol Hcl (Tramadol Hcl) 50 Mg Tab, 2 TAB PO Q6HP PRN for MODERATE PAIN, MG 03/16/19 Oxybutynin Chloride (Ditropan Xl) 5 Mg Tab, 5 MG PO TID for 30 Days, MG 03/16/19 Current Medications Current Medications Medications (Trade) Dose Ordered Sig/Adore Route PRN Reason Start Time Stop Time Status Last Admin Pantoprazole Sodium (Protonix) 40 mg DAILY IV 02/13/25 10:00 02/13/25 10:13 Vancomycin HCl 250 ml @ 200 mls/hr Q12H IV 02/12/25 14:00 02/13/25 03:52 Morphine Sulfate 1 mg Q4HP PRN IV SEVERE PAIN (7-10 PAIN SCALE) 02/12/25 14:45 Vital Signs Vital Signs Date Time Temp Pulse Resp B/P (MAP) Pulse Ox O2 Delivery O2 Flow Rate FiO2 02/13/25 09:00 97.7 86 19 126/61 (82) 94 97.7 02/12/25 20:09 Room Air* 0 21 Labs/Diagnostic Data Labs Test 02/13/25 05:27 02/12/25 07:36 02/12/25 05:03 02/12/25 05:00 Range/Units White Blood Count 7.8 4.4-10.8 10^3/uL Red Blood Count 3.09 L 4.0-5.20 10^6/uL Hemoglobin 7.9 L 12.2-16.2 g/dL Hematocrit 24.2 L 36.0-46.0 % Mean Corpuscular Volume 78.2 L 80.0-100.0 fL Mean Corpuscular Hemoglobin 25.7 L 28.0-32.0 pg Mean Corpuscular Hemoglobin Concent 32.9 32.0-36.0 g/dL Red Cell Distribution Width 17.4 H 11.8-14.3 % Platelet Count 420 140-450 10^3/uL Mean Platelet Volume 7.1 6.9-10.8 fL Neutrophils (%) (Auto) 64.3 37.0-80.0 % Lymphocytes (%) (Auto) 22.2 10.0-50.0 % Monocytes (%) (Auto) 9.8 0.0-12.0 % Eosinophils (%) (Auto) 3.2 0.0-7.0 % Basophils (%) (Auto) 0.5 0.0-2.0 % Neutrophils # (Auto) 5.0 1.6-8.6 10 ^3/uL Lymphocytes # (Auto) 1.7 0.4-5.4 10 ^3/uL Monocytes # (Auto) 0.8 0-1.3 10 ^3/uL Eosinophils # (Auto) 0.3 0-0.8 10 ^3/uL Basophils # (Auto) 0 0-0.2 10 ^3/uL Nucleated Red Blood Cells 0.0 % Sodium Level 141 136-145 mmol/L Potassium Level 2.7 L 3.5-5.1 mmol/L Chloride Level 108 H 98-107 mmol/L Carbon Dioxide Level 22 20-31 mmol/L Anion Gap 11 5-15 Blood Urea Nitrogen 10 9-23 mg/dL Creatinine 0.25 L 0.550-1.02 mg/dL Glomerular Filtration Rate Calc 119 >90 mL/min BUN/Creatinine Ratio 40.0 H 10.0-20.0 Serum Glucose 87 74-106 mg/dL Calcium Level 8.8 8.7-10.4 mg/dL Magnesium Level 1.6 1.6-2.6 mg/dL Total Bilirubin 0.6 0.2-1.0 mg/dL Aspartate Amino Transferase (AST) 13 13-40 U/L Alanine Aminotransferase (ALT) < 9 7-40 U/L Alkaline Phosphatase 65 46-116 U/L Total Protein 4.9 L 5.7-8.2 g/dL Albumin 2.7 L 3.2-4.8 g/dL Platelet Estimate Adequate Hypochromasia (manual) Slight Microcytosis Slight Thyroid Stimulating Hormone (TSH) 2.20 0.55-4.78 uIU/mL Hemoglobin A1c < 3.8 <5.7 % A1C Lactic Acid Level 0.9 0.4-2.0 mmol/L Influenza Type A Antigen Negative Negative Influenza Type B Antigen Negative Negative SARS-CoV-2 Antigen (Rapid) Negative NEGATIVE Test 02/11/25 23:59 02/11/25 20:47 02/11/25 16:19 Range/Units Vitamin D 25-Hydroxy 56.5 30.0-100 ng/mL Urine Color Yellow Yellow Urine Clarity Turbid H Clear Urine pH 6.0 5.0-9.0 Urine Specific [place] 1.031 1.001-1.035 Urine Protein 1+ H Negative Urine Ketones 1+ H Negative Urine Blood Negative Negative /uL Urine Nitrite Negative Negative Urine Bilirubin Negative Negative Urine Urobilinogen Normal Negative mg/dL Urine Leukocyte Esterase Trace Negative /uL Urine RBC <1 0 - 4 /hpf Urine Microscopic WBC 25 H 0-5 /HPF Urine Squamous Epithelial Cells Mod <5 /hpf Urine Bacteria Few H None Seen /hpf Urine Hyaline Casts Mod 0 - 2 /lpf Urine Mucus Few None Seen Urine Yeast (Budding) Few None Seen /hpf Urine Glucose Normal Normal mg/dL Prothrombin Time 11.2 9.3-11.8 sec Prothrombin Time INR 1.06 0.9-1.15 Creatine Kinase 25 L 34-145 U/L Troponin I High Sensitivity < 3 L </=34 ng/L Lipase 20 12-53 U/L Microbiology Date/Time Source Procedure Growth Status 02/11/25 23:22 Blood Blood Culture - Preliminary NO GROWTH AFTER 24 HOURS OF INCUBATION. Resulted Assessment I have communicated with patient's resident physician that the patient can follow up with who has reportedly been doing serial debridement for her. Plan discussed with: Other FISCHL,PETER MD Feb 13, 2025 11:47
[2025-02-13] MEDS ORDERED: HYDROMORPHONE HCL 1 MG/ML INJ IV PRN (12:00)
[2025-02-13] MEDS: POTASSIUM CHLORIDE 60 MEQ, LIDOCAINE 1% (LOCAL ANESTH.) 6 ML in SODIUM CHL 0.9% 500 ML IV ONE (12:45)
--- NOTE | 2025-02-13 13:15 | DVHPN2 ---
Subjective Appears stable, continuing pain in tailbone Reviewed: H&P Changes from previous H/P or p: No Changes General: Per HPI Eyes: No Pain, No Vision change, No Conjunctivae inflammation, No Eyelid inflammation, No Other, No Redness ENT: No Ear pain, No Ear discharge, No Nose pain, No Nose discharge, No Nose congestion, No Mouth pain, No Mouth swelling, No Throat pain, No Throat swelling, No Other Cardiovascular: No Chest Pain, No Palpitations, No Orthopnea, No Paroxysmal Noc. Dyspnea, No Edema, No Lt Headedness, No Other Respiratory: No Cough, No Dry; Shortness of breath; No SOB with excertion, No Wheezing, No Hemoptysis, No Pleuritic Pain, No Sputum, No Other Gastrointestinal: No Nausea, No Vomiting, No Abdominal Pain, No Diarrhea, No Constipation, No Melena, No Hematochezia, No Other Genitourinary: No Dysuria, No Frequency, No Incontinence, No Hematuria, No Retention, No Other Musculoskeletal: No other, No neck pain, No shoulder pain, No arm pain, No back pain, No hand pain, No leg pain, No foot pain Skin: No Rash, No Lesions, No Jaundice, No Bruising, No Other Objective Vitals Vital Signs Date Time Temp Pulse Resp B/P (MAP) Pulse Ox O2 Delivery O2 Flow Rate FiO2 02/13/25 09:00 97.7 86 19 126/61 (82) 94 97.7 02/12/25 20:09 Room Air* 0 21 Intake/Output Intake and Output 02/13/25 07:00 Intake Total 1700 ml Output Total 2300 ml Balance -600 ml Intake Oral 200 ml IV Total 900 ml Blood Product 600 ml Output Urine Total 2300 ml Exam General examination- patient is awake, alert, oriented HEENT- PEERLA, no acute nasal discharge Cardiovascular- S1-S2 audible, rate and rhythm regular, no murmur Respiratory- CTAB, no wheeze or rhonchi Gastrointestinal-nontender, bowel sound+. Nondistended Musculoskeletal-no acute joint swelling or tenderness or redness Lower extremity- bilateral leg edema, bilateral lower limb weakness, unable to move Neurological- paraplegia Psychiatry- denies depression or SI or HI Skin- no acute rash or purpura Medications Current Medications Medications Dose Ordered Sig/Adore Route Start Time Stop Time Status Last Admin Dose Admin Acetaminophen 325 mg Q4HP PRN PO 02/11/25 23:15 Ondansetron HCl 4 mg Q4HP PRN IV 02/11/25 23:15 Docusate Sodium 100 mg BIDPRN PRN PO 02/11/25 23:15 Vancomycin HCl 0 ml @ 0 mls/hr UD IV 02/11/25 23:15 Piperacillin Sod/ Tazobactam Sod 100 ml @ 25 mls/hr Q6H IV 02/12/25 04:00 02/13/25 10:13 25 MLS/HR Polyethylene Glycol 17 gm DAILY PO 02/12/25 10:00 Pantoprazole Sodium 40 mg DAILY IV 02/13/25 10:00 02/13/25 10:13 40 MG Sodium Chloride 1,000 ml @ 100 mls/hr Q10H IV 02/12/25 08:00 Vancomycin HCl 250 ml @ 200 mls/hr Q12H IV 02/12/25 14:00 02/13/25 03:52 200 MLS/HR Morphine Sulfate 1 mg Q4HP PRN IV 02/12/25 14:45 Hold Acetaminophen/ Hydrocodone Bitart 1 tab Q4HPRN PRN PO 02/13/25 12:00 Hydromorphone HCl 0.25 mg Q4HPRN PRN IV 02/13/25 12:00 Laboratory Results Laboratory Tests 02/13/25 05:27 Chemistry Test 02/13/25 05:27 Albumin 2.7 g/dL (3.2-4.8) L Calcium Level 8.8 mg/dL (8.7-10.4) Magnesium Level 1.6 mg/dL (1.6-2.6) Total Protein 4.9 g/dL (5.7-8.2) L LFT Test 02/13/25 05:27 Alanine Aminotransferase (ALT) < 9 U/L (7-40) Alkaline Phosphatase 65 U/L (46-116) Aspartate Amino Transferase (AST) 13 U/L (13-40) Total Bilirubin 0.6 mg/dL (0.2-1.0) Urinalysis Test 02/11/25 20:47 Urine Color Yellow (Yellow) Urine Clarity Turbid (Clear) H Urine pH 6.0 (5.0-9.0) Urine Specific [place] 1.031 (1.001-1.035) Urine Protein 1+ (Negative) H Urine Ketones 1+ (Negative) H Urine Blood Negative /uL (Negative) Urine Nitrite Negative (Negative) Urine Bilirubin Negative (Negative) Urine Urobilinogen Normal mg/dL (Negative) Urine Leukocyte Esterase Trace /uL (Negative) Urine RBC <1 /hpf (0 - 4) Urine Microscopic WBC 25 /HPF (0-5) H Urine Squamous Epithelial Cells Mod /hpf (<5) Urine Bacteria Few /hpf (None Seen) H Urine Hyaline Casts Mod /lpf (0 - 2) Urine Mucus Few (None Seen) Urine Yeast (Budding) Few /hpf (None Seen) Urine Glucose Normal mg/dL (Normal) Microbiology Microbiology Date/Time Source Procedure Growth Status 02/11/25 23:22 Blood Blood Culture - Preliminary NO GROWTH AFTER 24 HOURS OF INCUBATION. Resulted Labs and/or images reviewed: Labs reviewed by me, Image(s) reviewed by me Assessment/Plan Assessment/Plan Update 02/13 patient was stable, continuing to having pain tailbone/chest wall, continuing pain control. Nonoperative approach by ortho. Surgery unable to be contacted Dr. Ross. On-call surgery is not familiar with the case and also the cases not appear to be emergent. We will continue to contact primary surgeon. Patient does not want to go home on hospice, she wants to rehab. patient with right femur fracture along with abscess, gas around the right femur shaft. Patient was seen by orthopedic surgeon, recommended conservative management due to patient's poor medical condition and poor prognosis. Ordered surgery consult for abscess along the right fracture femur. Patient was kept NPO after midnight for possible surgical intervention. Patient had severe anemia, status post 1 unit packed red blood cell transfusion. Social service consult for hospice in place. Right femoral subtrochanteric pathologic fracture - CT abdomen pelvis: There is a dislocated fracture involving the proximal right femur, subtrochanteric. There appears to be a large abscess involving the right lower extremity associated with the fracture. Gas tracking along the right femoral shaft, gas is seen tracking along the right flank. - consulted orthopedic-Dr. Zelaya recommended for nonsurgical treatment, - ordered surgery consult-Dr. Richard Ross #Extensive sacral wounds, infected Sepsis due to above Lactic acidosis, improving - Large abscess associated with the fracture right femur - CT abdomen pelvis: Large abscess associated with the fracture and there was gas tracking along the right femoral shaft and also along the right flank where there is an open wound and associated with a fracture. - continue IV fluid as prescribed - IV vancomycin, IV Zosyn q.6 hours - acetaminophen 650 mg once, acetaminophen Q 25 mg q.4 - surgeon consult in place # severe anemia likely microcytic hypochromic -status post 1 unit blood transfusion Small-bowel ileus - per patient she had a large bowel movement on 02/11/2025, CT abdomen pelvis shows severe constipation, small-bowel ileus. -continue current management Right lung consolidate, questionable pneumonia Bilateral pleural effusion - CXR: Mild cardiomegaly and mild prominence of the central pulmonary vasculature. Small right pleural effusion. - CT abdomen pelvis: Bilateral large pleural effusions lung bases with consolidate in the right posterior lung base. Anasarca. 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 # severe protein calorie malnutrition -ordered dietary consult Goals of care, Code status ; discussed with >35 minutes PUD prophylaxis: Pantoprazole DVT prophylaxis: Patient with severe anemia Plan discussed with: Patient My Orders Orders - LEVY RIDLEY MD Procedure Category Date Status Time Wound Culture W/ Gs OSITO 02/13/25 In Process 11:48 Wound Culture W/ Gs OSITO 02/13/25 In Process 11:48 Full Liq Diet DIET 02/13/25 Transmitted Lunch Hydrocodone-Acet PHA 02/13/25 In Process 5/325mg Tab ([place] 12:00 Hydromorphone Hcl Inj PHA 02/13/25 In Process (Dilaudid Injectio 12:00 Potassium Chloride PHA 02/13/25 In Process (Potassium Chloride). 12:45 Date of Service: Feb 13, 2025 Billing Provider: LEVY RIDLEY MD Common Visit Codes: [id number] INP/OBS CARE(HIGH) LEVY RIDLEY MD Feb 13, 2025 13:14
[2025-02-13] MEDS: HYDROmorphone HCL 2 MG/ML VL/or syr IV PRN ×2 (16:49→21:23)
[2025-02-13] MEDS: DOCUSATE SOD 100 MG CAP PO PRN (21:24)
[2025-02-13] MEDS ORDERED: DEXTROSE (50%) 50ML SYRG IV PRN (21:45)
[2025-02-13] MEDS: InsuLIN REG 1unit/0.01ml Soln (100units/ml) SC SCH (22:00)
[2025-02-13] MEDS: ACCU-CHEK COMFORT CURVE STRIP VI SCH (22:19)
--- NOTE | 2025-02-13 23:26 | DVHSR ---
APPROVED REPORT EXAM: Two-dimensional and M-mode echocardiogram with Doppler and color Doppler. Blood Pressure: 136/69 mmHg INDICATION 2=+ lower extremity edema up to knees DIMENSIONS LVDd4.3 (3.8-5.7cm)LA (2D)3.7 (1.9-4.0cm)Aortic Root3.3 (2.0-3.7cm) LVDs3.0 (2.5-4.0cm)LA (MM) (1.9-4.0cm)Aortic Cusp Exc1.8 (1.5-2.0cm) EF (%) 58.0 (55-70%)Rt. Atrium2.5 (1.9-4.0cm)Asc. Aorta cm IVSd0.9 (0.7-1.1cm)RV (D) (1.8-2.4cm) PWd0.9 (0.7-1.1cm) Mitral Valve MitralMitral Stenosis E wave0.70m/sMV Mean GR.mmHg A wave0.94m/sMV Peak GR.149mmHg E/A ratio0.72D MVAcm2 DECEL [id number] 1/2 Tim[place] Aortic Valve Aortic ValveAortic Stenosis V11.08m/Justin Mean GR.5mmHg V21.38m/Justin Peak GR.8mmHg LVOT Diameter2.1 (1.8-2.4cm)Doppler AVA2.71cm2 Pulmonic Valve V20.87m/s Conclusion NORMAL LV EF AND IS 65% MODERATE DEGREE PROLAPSE OF ANTERIOR LEAFLET OF MV NORMAL TV,PV AND AORTIC VALVE NORMAL RV FUNCTION NO EFFUSION
[2025-02-14] VITALS (9 sets, daily range): BP systolic 140–150; BP diastolic 65–79; PULSE 74–86; RESP 16–18; TEMP 97.5–98.2; O2SAT 95–98
[2025-02-14] MEDS: VANCOMYCIN 750MG KIT 100 ML IV SCH (02:00)
[2025-02-14 06:11] LABS: Basophils # (auto) 0 10 ^3/uL (0-0.2); Basophils % (auto) 0.4 % (0.0-2.0); Eosinophils # (auto) 0.2 10 ^3/uL (0-0.8); Hemoglobin 9.2 g/dL (12.2-16.2); Lymphocytes # (auto) 1.4 10 ^3/uL (0.4-5.4); Monocytes # (auto) 0.7 10 ^3/uL (0-1.3)
[2025-02-14 06:13] LABS: Eosinophils % (auto) 2.3 % (0.0-7.0); Hematocrit 28.3 % (36.0-46.0); Lymphocytes % (auto) 16.4 % (10.0-50.0); Mean Corpuscular Hemoglobin 25.3 pg (28.0-32.0); Mean Corpuscular Hgb Conc. 32.6 g/dL (32.0-36.0); Mean Corpuscular Volume 77.7 fL (80.0-100.0); Monocytes % (auto) 8.1 % (0.0-12.0); Neutrophils # (auto) 6.1 10 ^3/uL (1.6-8.6); Neutrophils % (auto) 72.8 % (37.0-80.0); Platelet Count (auto) 470 10^3/uL (140-450); Red Blood Cells 3.64 10^6/uL (4.0-5.20); White Blood Cell 8.3 10^3/uL (4.4-10.8)
[2025-02-14 06:48] LABS: Alanine Aminotransferase 13 U/L (7-40); Alkaline Phosphatase 73 U/L (46-116); Anion Gap 8 (5-15); Aspartate Aminotransferase 28 U/L (13-40); Bilirubin, Total 0.7 mg/dL (0.2-1.0); Calcium 8.9 mg/dL (8.7-10.4); Carbon Dioxide 25 mmol/L (20-31); Chloride 105 mmol/L (98-107); Glucose 100 mg/dL (74-106); Sodium 138 mmol/L (136-145)
[2025-02-14 06:51] LABS: Albumin 2.9 g/dL (3.2-4.8); Blood Urea Nitrogen < 5 mg/dL (9-23); Potassium 2.7 mmol/L (3.5-5.1); Total Protein 5.2 g/dL (5.7-8.2)
[2025-02-14] MEDS: POTASSIUM CHL 20MEQ/50ML 50 ML IV SCH (09:18)
[2025-02-14] MEDS: VANCOMYCIN 1GM/200ML PM 200 ML IV SCH (16:29)
--- NOTE | 2025-02-14 17:05 | DVHPNRES ---
Progress Note Date Seen: Feb 14, 2025 Resident Creating Document: GIANCARLO MARTIN RESIDENT Medical Necessity Reason Pt with a Central, PICC or Fol: No Subjective Review of Systems patient is a 69-year-old paraplegic female with past medical history of diabetes, neurogenic bladder, history of necrotizing fascitis, sacral wound with a right gluteal wound, 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 According to the patient and daughter at bedside, yesterday on 02/10/2025 as she was having her self catheter changed by her caregiver, they heard a pop and subsequently her right leg gave way. Patient went to urgent Care, and had imaging study done, upon arrival to the ER discussion was held with orthopedic Dr. Pemberton, who reviewed the imaging study and advised he will perform ORIF tomorrow. Per patient and daughter at bedside, patient was recently discharged 3 days ago from [facility] due to extensive sacral ulcers and wounds. She lab workup revealed WBC 13.8, neutrophil 89.5, hemoglobin 8.2 dropped to 6.5 later on, MCV 75.7, RDW 18.0, platelets 519, lactic acid 3.4, albumin 2.6,. CT abdomen pelvis showed fractured right femur subtrochanteric, large abscess associated with fracture and open wound right flank. Also noted to have severe constipation, small-bowel ileus, bilateral ovarian cysts and a right lung consolidate, anasarca. UA showed 25 WBCs and a few bacteria, CXR showed pulmonary vascular congestion. Doppler study of the right lower extremity negative for DVT. Mild cardiomegaly and mild prominence of the central pulmonary vasculature. Small right pleural effusion. 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 Patient was seen today at the bedside. Cardiovascular- deny acute chest pain or shortness of breath or cough or palpitation Respiratory denies cough or short of breath or wheezing Gastrointestinal- denies any rectal bleeding, nausea or vomiting Musculoskeletal-denies acute joint swelling or tenderness or redness Neurological- denies acute dysarthria, dysphagia, change in vision Psychiatry- denies depression or SI or HI Skin- denies acute rash or purpura Patient was seen today for clinical evaluation. Labs and chart reviewed. Patient's hemoglobin dropped from 8.2 to 6.5. Patient had transfusion of 1 unit of packed red blood cell. Patient was seen by Dr. Navarro recommended nonsurgical treatment due to patient's poor medical condition and poor prognosis. Ordered surgery consult with Dr. Richard sauceda. Ordered repeat H&H. Provider spoke with patient's daughter ivis [phone]. Discussed patient's current medical condition and plan of care and answered her question. , Social service consult for hospice care in place. Objective vital signs Vital Sign Date Time Temp Pulse Resp B/P (MAP) Pulse Ox O2 Delivery O2 Flow Rate FiO2 02/14/25 15:20 83 18 125/59 02/14/25 13:02 97.5 97 97.5 02/14/25 08:05 Room Air* 0 21 Total Intake and Output 02/13/25 02/13/25 02/14/25 15:00 23:00 07:00 Intake Total 350 ml 600 ml Output Total 2300 ml 800 ml Balance -1950 ml -200 ml medications Current Medications Medications Dose Ordered Sig/Adore Route Start Time Stop Time Status Last Admin Dose Admin Acetaminophen 325 mg Q4HP PRN PO 02/11/25 23:15 Ondansetron HCl 4 mg Q4HP PRN IV 02/11/25 23:15 Docusate Sodium 100 mg BIDPRN PRN PO 02/11/25 23:15 02/13/25 21:24 100 MG Vancomycin HCl 0 ml @ 0 mls/hr UD IV 02/11/25 23:15 Piperacillin Sod/ Tazobactam Sod 100 ml @ 25 mls/hr Q6H IV 02/12/25 04:00 02/14/25 15:24 25 MLS/HR Polyethylene Glycol 17 gm DAILY PO 02/12/25 10:00 02/14/25 09:08 17 GM Pantoprazole Sodium 40 mg DAILY IV 02/13/25 10:00 02/14/25 09:12 40 MG Morphine Sulfate 1 mg Q4HP PRN IV 02/12/25 14:45 Hold Acetaminophen/ Hydrocodone Bitart 1 tab Q4HPRN PRN PO 02/13/25 12:00 Hydromorphone HCl 0.5 mg Q4HPRN PRN IV 02/13/25 18:00 02/14/25 15:20 0.5 MG Diagnostic Test (Pha) 1 strip ACHS 02/13/25 22:00 02/14/25 11:03 1 STRIP Insulin Human Regular ACHS SC 02/13/25 22:00 02/14/25 11:03 2 UNITS Dextrose 50 ml UD PRN IV 02/13/25 21:45 Vancomycin HCl 200 ml @ 160 mls/hr Q12H IV 02/14/25 14:00 Examination General examination- patient is awake, alert, oriented HEENT- PEERLA, no acute nasal discharge Cardiovascular- S1-S2 audible, rate and rhythm regular, no murmur Respiratory- CTAB, no wheeze or rhonchi Gastrointestinal-nontender, bowel sound+. Nondistended Musculoskeletal-no acute joint swelling or tenderness or redness Lower extremity- bilateral leg edema, bilateral lower limb weakness, unable to move Neurological- paraplegia Psychiatry- denies depression or SI or HI Skin- patient has wound in the sacral area, right buttock, on the left buttock area laboratory and microbiology Laboratory Tests 02/14/25 05:50 Test 02/14/25 05:50 Range/Units Serum Glucose 100 74-106 mg/dL Microbiology Date/Time Source Procedure Growth Status 02/13/25 11:55 Sacrum Gram Stain Pending Resulted 02/13/25 11:55 Sacrum Wound Culture - Preliminary Resulted 02/11/25 23:22 Blood Blood Culture - Preliminary NO GROWTH AFTER 48 HOURS OF INCUBATION. Resulted 02/11/25 20:42 Voided Urine Urine Culture - Preliminary Resulted Problem List/Assessment/Plan Problem List/Assessment/Plan Assessment and plan-ordered physical therapy, plan is to talk to Cody Holt tomorrow for further evaluation and care. Right femoral subtrochanteric pathologic fracture - CT abdomen pelvis: There is a dislocated fracture involving the proximal right femur, subtrochanteric. There appears to be a large abscess involving the right lower extremity associated with the fracture. Gas tracking along the right femoral shaft, gas is seen tracking along the right flank. - consulted orthopedic-Dr. Zelaya recommended for nonsurgical treatment, - ordered surgery consult-Dr. Richard Sauceda #Extensive sacral wounds, infected Sepsis due to above Lactic acidosis, improving - Large abscess associated with the fracture right femur - CT abdomen pelvis: Large abscess associated with the fracture and there was gas tracking along the right femoral shaft and also along the right flank where there is an open wound and associated with a fracture. - continue IV fluid as prescribed - IV vancomycin, IV Zosyn q.6 hours - acetaminophen 650 mg once, acetaminophen Q 25 mg q.4 - patient was seen by surgeon Dr. Wang # severe anemia likely microcytic hypochromic -status post 1 unit blood transfusion Small-bowel ileus - per patient she had a large bowel movement on 02/11/2025, CT abdomen pelvis shows severe constipation, small-bowel ileus. -continue current management Right lung consolidate, questionable pneumonia Bilateral pleural effusion - CXR: Mild cardiomegaly and mild prominence of the central pulmonary vasculature. Small right pleural effusion. - CT abdomen pelvis: Bilateral large pleural effusions lung bases with consolidate in the right posterior lung base. Anasarca. 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 Gumsan , nursing staff, Total time spent on patient evaluation, chart review, assessment and plan, discussion discussion >35 minutes Plan discussed with: Patient, Spouse, Daughter, Other (RN) My Orders My Orders Orders - GIANCARLO MARTIN Procedure Category Date Status Time Potassium LAB 02/14/25 Logged 16:49 Pt Request For Service PT 02/14/25 Logged 16:52 CC Plasma Assessment Blood Product Administration S: [id number] Date of Service: Feb 14, 2025 Billing Provider: LEVY RIDLEY MD Common Visit Codes: [id number] INP/OBS CARE(HIGH) GIANCARLO MARTIN Feb 14, 2025 17:05 LEVY RIDLEY MD Feb 17, 2025 00:52
[2025-02-14 18:21] LABS: Chloride 104 mmol/L (98-107); Potassium 3.7 mmol/L (3.5-5.1); Sodium 138 mmol/L (136-145)
[2025-02-14 18:22] LABS: Anion Gap 8 (5-15); Carbon Dioxide 26 mmol/L (20-31)
[2025-02-14 18:27] LABS: Glucose 88 mg/dL (74-106)
[2025-02-14 18:28] LABS: BUN/Creatinine Ratio 27.3 (10.0-20.0)
[2025-02-14 18:31] LABS: Blood Urea Nitrogen 6 mg/dL (9-23)
[2025-02-15] VITALS (8 sets, daily range): BP systolic 133–179; BP diastolic 60–77; PULSE 72–89; RESP 16–18; TEMP 97.5–98.6; O2SAT 95–98
[2025-02-15 08:11] LABS: Eosinophils # (auto) 0.4 10 ^3/uL (0-0.8); Hemoglobin 9.5 g/dL (12.2-16.2); Lymphocytes # (auto) 1.7 10 ^3/uL (0.4-5.4); Monocytes # (auto) 0.7 10 ^3/uL (0-1.3); Platelet Count (auto) 504 10^3/uL (140-450); Red Blood Cells 3.67 10^6/uL (4.0-5.20); White Blood Cell 6.8 10^3/uL (4.4-10.8)
[2025-02-15 08:13] LABS: Basophils # (auto) 0 10 ^3/uL (0-0.2); Basophils % (auto) 0.7 % (0.0-2.0); Eosinophils % (auto) 5.7 % (0.0-7.0); Hematocrit 28.3 % (36.0-46.0); Lymphocytes % (auto) 24.8 % (10.0-50.0); Mean Corpuscular Hemoglobin 25.8 pg (28.0-32.0); Mean Corpuscular Hgb Conc. 33.5 g/dL (32.0-36.0); Monocytes % (auto) 9.8 % (0.0-12.0); Red Cell Distribution Width 17.4 % (11.8-14.3)
[2025-02-15 08:27] LABS: Anion Gap 7 (5-15); Carbon Dioxide 25 mmol/L (20-31); Chloride 107 mmol/L (98-107); Sodium 139 mmol/L (136-145)
[2025-02-15 08:28] LABS: Calcium 9.4 mg/dL (8.7-10.4)
[2025-02-15 08:33] LABS: BUN/Creatinine Ratio 26.1 (10.0-20.0); Glucose 88 mg/dL (74-106)
[2025-02-15 08:34] LABS: Blood Urea Nitrogen 6 mg/dL (9-23)
--- NOTE | 2025-02-15 09:43 | DVH ---
US LT LOWER DVT US 02/15/2025 08:54 AM Clinical History: lrg swelling Comparison: US RT LOWER DVT on DOS: 02/12/25 Technique: Duplex Doppler evaluation of the deep venous system of the left lower extremity from the common femor al vein to the popliteal vein including color Doppler and spectral/pulsed waveform analysis was perfo rmed. Findings: The common femoral vein demonstrates appropriate compressibility and waveform variability. There is compressibility/patency of the great saphenous vein at the proximal thigh. The femoral vein demonstrates appropriate compressibility and waveform variability. The deep femoral vein demonstrates appropriate compressibility and waveform variability. The popliteal vein demonstrates appropriate compressibility and waveform variability. There is color flow in the tibioperoneal trunk and posterior tibial vein. Impression: 1. No deep venous thrombosis left lower extremity. If clinical concern/symptoms persist or worsen, s hort-interval follow-up study is suggested.
[2025-02-15] MEDS: POTASSIUM CHL 20 Meq TABLET PO ONE (12:30)
--- NOTE | 2025-02-15 17:46 | DVHPNRES ---
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 According to the patient and daughter at bedside, yesterday on 02/10/2025 as she was having her self catheter changed by her caregiver, they heard a pop and subsequently her right leg gave way. Patient went to urgent Care, and had imaging study done, upon arrival to the ER discussion was held with orthopedic Dr. Pemberton, who reviewed the imaging study and advised he will perform ORIF tomorrow. Per patient and daughter at bedside, patient was recently discharged 3 days ago from [facility] due to extensive sacral ulcers and wounds. She lab workup revealed WBC 13.8, neutrophil 89.5, hemoglobin 8.2 dropped to 6.5 later on, MCV 75.7, RDW 18.0, platelets 519, lactic acid 3.4, albumin 2.6,. CT abdomen pelvis showed fractured right femur subtrochanteric, large abscess associated with fracture and open wound right flank. Also noted to have severe constipation, small-bowel ileus, bilateral ovarian cysts and a right lung consolidate, anasarca. UA showed 25 WBCs and a few bacteria, CXR showed pulmonary vascular congestion. Doppler study of the right lower extremity negative for DVT. Mild cardiomegaly and mild prominence of the central pulmonary vasculature. Small right pleural effusion. 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 Patient was seen today at the bedside. Cardiovascular- deny acute chest pain or shortness of breath or cough or palpitation Respiratory denies cough or short of breath or wheezing Gastrointestinal- denies any rectal bleeding, nausea or vomiting Musculoskeletal-denies acute joint swelling or tenderness or redness Neurological- denies acute dysarthria, dysphagia, change in vision Psychiatry- denies depression or SI or HI Skin- denies acute rash or purpura Patient was seen today for clinical evaluation. Labs and chart reviewed. P pita was evaluated by PT. Social service consult for home health for wound care, hospital bed and wound VAC was in place. Provider spoke with patient's daughter ivis [phone]. Daughter mentioned that she had a conversation over phone with Dr. Richard Ross regarding with the plan of care on discharge. Objective vital signs Vital Sign Date Time Temp Pulse Resp B/P (MAP) Pulse Ox O2 Delivery O2 Flow Rate FiO2 02/15/25 14:35 78 18 136/78 02/15/25 13:00 97.6 96 97.6 02/15/25 08:00 Room Air* 0 21 Total Intake and Output 02/14/25 02/14/25 02/15/25 15:00 23:00 07:00 Intake Total 300 ml 1175 ml 420 ml Output Total 350 ml 1900 ml Balance 300 ml 825 ml -1480 ml medications Current Medications Medications Dose Ordered Sig/Adore Route Start Time Stop Time Status Last Admin Dose Admin Acetaminophen 325 mg Q4HP PRN PO 02/11/25 23:15 Ondansetron HCl 4 mg Q4HP PRN IV 02/11/25 23:15 Docusate Sodium 100 mg BIDPRN PRN PO 02/11/25 23:15 02/13/25 21:24 100 MG Vancomycin HCl 0 ml @ 0 mls/hr UD IV 02/11/25 23:15 Piperacillin Sod/ Tazobactam Sod 100 ml @ 25 mls/hr Q6H IV 02/12/25 04:00 02/15/25 17:03 25 MLS/HR Polyethylene Glycol 17 gm DAILY PO 02/12/25 10:00 02/14/25 09:08 17 GM Pantoprazole Sodium 40 mg DAILY IV 02/13/25 10:00 02/15/25 10:00 40 MG Morphine Sulfate 1 mg Q4HP PRN IV 02/12/25 14:45 Hold Acetaminophen/ Hydrocodone Bitart 1 tab Q4HPRN PRN PO 02/13/25 12:00 Hydromorphone HCl 0.5 mg Q4HPRN PRN IV 02/13/25 18:00 02/15/25 14:05 0.5 MG Diagnostic Test (Pha) 1 strip ACHS 02/13/25 22:00 02/15/25 17:03 1 STRIP Insulin Human Regular ACHS SC 02/13/25 22:00 02/14/25 11:03 2 UNITS Dextrose 50 ml UD PRN IV 02/13/25 21:45 Vancomycin HCl 200 ml @ 160 mls/hr Q12H IV 02/14/25 14:00 02/15/25 14:27 160 MLS/HR Examination General examination- patient is awake, alert, oriented HEENT- PEERLA, no acute nasal discharge Cardiovascular- S1-S2 audible, rate and rhythm regular, no murmur Respiratory- CTAB, no wheeze or rhonchi Gastrointestinal-nontender, bowel sound+. Nondistended Musculoskeletal-no acute joint swelling or tenderness or redness Lower extremity- bilateral leg edema, bilateral lower limb weakness, unable to move Neurological- paraplegia Psychiatry- denies depression or SI or HI Skin- patient has wound in the sacral area, right buttock, on the left buttock area laboratory and microbiology Laboratory Tests 02/15/25 13:13 02/15/25 07:37 Test 02/15/25 07:37 Range/Units Serum Glucose 88 74-106 mg/dL Microbiology Date/Time Source Procedure Growth Status 02/13/25 11:55 Sacrum Gram Stain - Final Resulted 02/13/25 11:55 Sacrum Wound Culture - Preliminary Resulted 02/11/25 23:22 Blood Blood Culture - Preliminary NO GROWTH AFTER 72 HOURS OF INCUBATION. Resulted 02/11/25 20:42 Voided Urine Urine Culture - Preliminary Resulted Problem List/Assessment/Plan Problem List/Assessment/Plan Assessment and plan-ordered physical therapy, plan is to talk to Cody Holt tomorrow for further evaluation and care. Right femoral subtrochanteric pathologic fracture - CT abdomen pelvis: There is a dislocated fracture involving the proximal right femur, subtrochanteric. There appears to be a large abscess involving the right lower extremity associated with the fracture. Gas tracking along the right femoral shaft, gas is seen tracking along the right flank. - consulted orthopedic-Dr. Zelaya recommended for nonsurgical treatment, - patient is community surgeon Dr. Richard Ross is going to to take care of the patient after discharge #Extensive sacral wounds, infected Sepsis due to above Lactic acidosis, improving - Large abscess associated with the fracture right femur - CT abdomen pelvis: Large abscess associated with the fracture and there was gas tracking along the right femoral shaft and also along the right flank where there is an open wound and associated with a fracture. - continue IV fluid as prescribed - IV vancomycin, IV Zosyn q.6 hours - acetaminophen 650 mg once, acetaminophen Q 25 mg q.4 - patient was seen by surgeon Dr. Wang # severe anemia likely microcytic hypochromic -status post 1 unit blood transfusion Small-bowel ileus - per patient she had a large bowel movement on 02/11/2025, CT abdomen pelvis shows severe constipation, small-bowel ileus. -continue current management Right lung consolidate, questionable pneumonia Bilateral pleural effusion - CXR: Mild cardiomegaly and mild prominence of the central pulmonary vasculature. Small right pleural effusion. - CT abdomen pelvis: Bilateral large pleural effusions lung bases with consolidate in the right posterior lung base. Anasarca. 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 Gusman , nursing staff, Total time spent on patient evaluation, chart review, assessment and plan, discussion discussion >35 minutes Plan discussed with: Patient, Spouse, Daughter, Other (RN) My Orders My Orders Orders - GIANCARLO MARTIN RESIDENT Procedure Category Date Status Time Lt Lower Dvt US 02/15/25 Resulted 07:33 Consistent DIET 02/15/25 Transmitted Carb([facility])Diabetes Dinner * Corporate Logistics Manager CONS 02/15/25 Transmitted Consult Dietary Evaluation Review Comments: 1. Disagree with current diet, increase CHO allotment to 60 gm/meal to support energy needs for wound healing 2. Will add Glucerna daily (provides 220 kcal, 10 gm pro per carton) 3. Monitor glycemic control, maintain BG <180 mg/dl while inpatient 4. Consider daily MVI w/ minerals, 500 mg Vit C, 220 mg zinc sulfate x 7-10 days given presence of multiple wounds Expected Outcomes/Goals: Maintain skin integrity, weight maintenance, wound healing. CC Plasma Assessment Blood Product Administration S: 1432 Date of Service: Feb 15, 2025 Billing Provider: LEVY RIDLEY MD Common Visit Codes: [id number] INP/OBS CARE(HIGH) GIANCARLO MARTIN RESIDENT Feb 15, 2025 17:46 LEVY RIDLEY MD Feb 17, 2025 00:34
[2025-02-16] VITALS (8 sets, daily range): BP systolic 124–160; BP diastolic 58–86; PULSE 77–91; RESP 17–20; TEMP 97.7–98.2; O2SAT 94–98
[2025-02-16 07:22] LABS: Basophils # (auto) 0 10 ^3/uL (0-0.2); Eosinophils # (auto) 0.4 10 ^3/uL (0-0.8); Hemoglobin 9.7 g/dL (12.2-16.2); Mean Corpuscular Hemoglobin 25.6 pg (28.0-32.0); Monocytes # (auto) 0.6 10 ^3/uL (0-1.3); Neutrophils # (auto) 4.9 10 ^3/uL (1.6-8.6); Platelet Count (auto) 488 10^3/uL (140-450)
[2025-02-16 07:23] LABS: Anion Gap 9 (5-15); Carbon Dioxide 23 mmol/L (20-31); Chloride 105 mmol/L (98-107); Sodium 137 mmol/L (136-145)
[2025-02-16 07:24] LABS: Basophils % (auto) 0.7 % (0.0-2.0); Calcium 9.4 mg/dL (8.7-10.4); Eosinophils % (auto) 5.8 % (0.0-7.0); Hematocrit 29.7 % (36.0-46.0); Lymphocytes % (auto) 14.5 % (10.0-50.0); Mean Corpuscular Hgb Conc. 32.8 g/dL (32.0-36.0); Mean Corpuscular Volume 78.1 fL (80.0-100.0); Monocytes % (auto) 8.9 % (0.0-12.0); Neutrophils % (auto) 70.1 % (37.0-80.0); Red Cell Distribution Width 17.6 % (11.8-14.3)
[2025-02-16 07:29] LABS: Glucose 99 mg/dL (74-106)
[2025-02-16 07:31] LABS: BUN/Creatinine Ratio 21.7 (10.0-20.0); Blood Urea Nitrogen < 5 mg/dL (9-23); Potassium 3.4 mmol/L (3.5-5.1)
[2025-02-16] MEDS: HYDROcodone-ACET 5/325MG TAB PO PRN (14:21)
--- NOTE | 2025-02-16 15:48 | DVHPNRES ---
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 According to the patient and daughter at bedside, yesterday on 02/10/2025 as she was having her self catheter changed by her caregiver, they heard a pop and subsequently her right leg gave way. Patient went to urgent Care, and had imaging study done, upon arrival to the ER discussion was held with orthopedic Dr. Pemberton, who reviewed the imaging study and advised he will perform ORIF tomorrow. Per patient and daughter at bedside, patient was recently discharged 3 days ago from [facility] due to extensive sacral ulcers and wounds. She lab workup revealed WBC 13.8, neutrophil 89.5, hemoglobin 8.2 dropped to 6.5 later on, MCV 75.7, RDW 18.0, platelets 519, lactic acid 3.4, albumin 2.6,. CT abdomen pelvis showed fractured right femur subtrochanteric, large abscess associated with fracture and open wound right flank. Also noted to have severe constipation, small-bowel ileus, bilateral ovarian cysts and a right lung consolidate, anasarca. UA showed 25 WBCs and a few bacteria, CXR showed pulmonary vascular congestion. Doppler study of the right lower extremity negative for DVT. Mild cardiomegaly and mild prominence of the central pulmonary vasculature. Small right pleural effusion. 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 Patient was seen today at the bedside. Cardiovascular- deny acute chest pain or shortness of breath or cough or palpitation Respiratory denies cough or short of breath or wheezing Gastrointestinal- denies any rectal bleeding, nausea or vomiting Musculoskeletal-denies acute joint swelling or tenderness or redness Neurological- denies acute dysarthria, dysphagia, change in vision Psychiatry- denies depression or SI or HI Skin- denies acute rash or purpura Patient was seen today for clinical evaluation. Labs and chart reviewed. As per social service patient is hospital bed is supposed to be delivered tomorrow between 11:00 a.m. to 1:00 p.m.. Patient's wound VAC is at the bedside and wound care team is supposed to put it on the wound. Patient can resume her IV home antibiotic as written before by infectious disease doctor. Objective vital signs Vital Sign Date Time Temp Pulse Resp B/P (MAP) Pulse Ox O2 Delivery O2 Flow Rate FiO2 02/16/25 13:00 97.9 81 17 124/86 (99) 96 97.9 02/16/25 08:00 Room Air* 0 21 Total Intake and Output 02/15/25 02/15/25 02/16/25 15:00 23:00 07:00 Intake Total 200 ml 845 ml 800 ml Output Total 700 ml 2000 ml Balance 200 ml 145 ml -1200 ml medications Current Medications Medications Dose Ordered Sig/Adore Route Start Time Stop Time Status Last Admin Dose Admin Acetaminophen 325 mg Q4HP PRN PO 02/11/25 23:15 Ondansetron HCl 4 mg Q4HP PRN IV 02/11/25 23:15 Docusate Sodium 100 mg BIDPRN PRN PO 02/11/25 23:15 02/13/25 21:24 100 MG Vancomycin HCl 0 ml @ 0 mls/hr UD IV 02/11/25 23:15 Piperacillin Sod/ Tazobactam Sod 100 ml @ 25 mls/hr Q6H IV 02/12/25 04:00 02/16/25 09:09 25 MLS/HR Polyethylene Glycol 17 gm DAILY PO 02/12/25 10:00 02/16/25 09:10 17 GM Pantoprazole Sodium 40 mg DAILY IV 02/13/25 10:00 02/16/25 09:09 40 MG Morphine Sulfate 1 mg Q4HP PRN IV 02/12/25 14:45 Hold Acetaminophen/ Hydrocodone Bitart 1 tab Q4HPRN PRN PO 02/13/25 12:00 02/16/25 14:21 1 TAB Hydromorphone HCl 0.5 mg Q4HPRN PRN IV 02/13/25 18:00 02/16/25 09:11 0.5 MG Diagnostic Test (Pha) 1 strip ACHS 02/13/25 22:00 02/16/25 12:12 1 STRIP Insulin Human Regular ACHS SC 02/13/25 22:00 02/16/25 12:33 2 UNITS Dextrose 50 ml UD PRN IV 02/13/25 21:45 Vancomycin HCl 200 ml @ 160 mls/hr Q12H IV 02/14/25 14:00 02/16/25 02:08 160 MLS/HR Examination General examination- patient is awake, alert, oriented HEENT- PEERLA, no acute nasal discharge Cardiovascular- S1-S2 audible, rate and rhythm regular, no murmur Respiratory- CTAB, no wheeze or rhonchi Gastrointestinal-nontender, bowel sound+. Nondistended Musculoskeletal-no acute joint swelling or tenderness or redness Lower extremity- bilateral leg edema, bilateral lower limb weakness, unable to move Neurological- paraplegia Psychiatry- denies depression or SI or HI Skin- patient has wound in the sacral area, right buttock, on the left buttock area laboratory and microbiology Laboratory Tests 02/16/25 06:39 Test 02/16/25 06:39 Range/Units Serum Glucose 99 74-106 mg/dL Microbiology Date/Time Source Procedure Growth Status 02/13/25 11:55 Sacrum Gram Stain - Final Resulted 02/13/25 11:55 Wound Culture - Preliminary Pseudomonas aeruginosa Resulted 02/11/25 23:22 Blood Blood Culture - Preliminary NO GROWTH AFTER 72 HOURS OF INCUBATION. Resulted 02/11/25 20:42 Voided Urine Urine Culture - Final Presumptive Ayde albicans Complete Problem List/Assessment/Plan Problem List/Assessment/Plan Assessment and plan-As per social service patient is hospital bed is supposed to be delivered tomorrow between 11:00 a.m. to 1:00 p.m.. Patient's wound VAC is at the bedside and wound care team is supposed to put it on the wound. Patient can resume her IV home antibiotic as written before by infectious disease doctor. Right femoral subtrochanteric pathologic fracture - CT abdomen pelvis: There is a dislocated fracture involving the proximal right femur, subtrochanteric. There appears to be a large abscess involving the right lower extremity associated with the fracture. Gas tracking along the right femoral shaft, gas is seen tracking along the right flank. - consulted orthopedic-Dr. Zelaya recommended for nonsurgical treatment, - patient is community surgeon Dr. Richard Ross is going to to take care of the patient after discharge #Extensive sacral wounds, infected Sepsis due to above Lactic acidosis, improving - Large abscess associated with the fracture right femur - CT abdomen pelvis: Large abscess associated with the fracture and there was gas tracking along the right femoral shaft and also along the right flank where there is an open wound and associated with a fracture. - continue IV fluid as prescribed - IV vancomycin, IV Zosyn q.6 hours - acetaminophen 650 mg once, acetaminophen Q 25 mg q.4 - patient was seen by surgeon Dr. Wang # severe anemia likely microcytic hypochromic -status post 1 unit blood transfusion Small-bowel ileus - per patient she had a large bowel movement on 02/11/2025, CT abdomen pelvis shows severe constipation, small-bowel ileus. -continue current management Right lung consolidate, questionable pneumonia Bilateral pleural effusion - CXR: Mild cardiomegaly and mild prominence of the central pulmonary vasculature. Small right pleural effusion. - CT abdomen pelvis: Bilateral large pleural effusions lung bases with consolidate in the right posterior lung base. Anasarca. 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 Gusman , nursing staff, Total time spent on patient evaluation, chart review, assessment and plan, discussion discussion >35 minutes Plan discussed with: Patient (RN), Spouse, Daughter, Other (RN) My Orders My Orders Orders - GIANCARLO MARTIN RESIDENT Procedure Category Date Status Time Transfer Orders XFER 02/16/25 Transmitted 09:27 * Quick Sketch Artist CONS 02/16/25 Transmitted Consult Dietary Evaluation Review Comments: 1. Disagree with current diet, increase CHO allotment to 60 gm/meal to support energy needs for wound healing 2. Will add Glucerna daily (provides 220 kcal, 10 gm pro per carton) 3. Monitor glycemic control, maintain BG <180 mg/dl while inpatient 4. Consider daily MVI w/ minerals, 500 mg Vit C, 220 mg zinc sulfate x 7-10 days given presence of multiple wounds Expected Outcomes/Goals: Maintain skin integrity, weight maintenance, wound healing. CC Plasma Assessment Blood Product Administration S: 1432 Date of Service: Feb 15, 2025 Billing Provider: LEVY RIDLEY MD Common Visit Codes: [id number] INP/OBS CARE(HIGH) GIANCARLO MARTIN RESIDENT Feb 16, 2025 15:48 LEVY RIDLEY MD Feb 17, 2025 00:45
[2025-02-17] VITALS (7 sets, daily range): BP systolic 107–155; BP diastolic 57–75; PULSE 77–89; RESP 18–20; TEMP 97.3–98.2; O2SAT 92–98
[2025-02-17 06:51] LABS: Eosinophils # (auto) 0.5 10 ^3/uL (0-0.8); Hemoglobin 9.5 g/dL (12.2-16.2); Lymphocytes # (auto) 1.3 10 ^3/uL (0.4-5.4); Monocytes # (auto) 0.7 10 ^3/uL (0-1.3); Neutrophils # (auto) 4.2 10 ^3/uL (1.6-8.6)
[2025-02-17 06:54] LABS: Basophils # (auto) 0.1 10 ^3/uL (0-0.2); Eosinophils % (auto) 6.9 % (0.0-7.0); Hematocrit 29.4 % (36.0-46.0); Lymphocytes % (auto) 19.3 % (10.0-50.0); Mean Corpuscular Hgb Conc. 32.3 g/dL (32.0-36.0); Mean Corpuscular Volume 77.4 fL (80.0-100.0); Monocytes % (auto) 10.2 % (0.0-12.0); Neutrophils % (auto) 62.6 % (37.0-80.0); Nucleated Red Blood Cells % 0.1 %; Platelet Count (auto) 535 10^3/uL (140-450); Red Cell Distribution Width 18.8 % (11.8-14.3); White Blood Cell 6.7 10^3/uL (4.4-10.8)
--- NOTE | 2025-02-17 11:01 | DVHDSRES ---
Discharge Summary Date of Admission Resident Creating Document: GIANCARLO MARTIN Feb 11, 2025 at 23:03 Date of Discharge: Feb 17, 2025 Labs/Diagnostic Data: Laboratory Results Test 02/17/25 06:16 02/17/25 06:00 02/16/25 06:39 02/15/25 13:13 White Blood Count 6.7 10^3/uL (4.4-10.8) Red Blood Count 3.80 10^6/uL (4.0-5.20) Hemoglobin 9.5 g/dL (12.2-16.2) Hematocrit 29.4 % (36.0-46.0) Mean Corpuscular Volume 77.4 fL (80.0-100.0) Mean Corpuscular Hemoglobin 25.0 pg (28.0-32.0) Mean Corpuscular Hemoglobin Concent 32.3 g/dL (32.0-36.0) Red Cell Distribution Width 18.8 % (11.8-14.3) Platelet Count 535 10^3/uL (140-450) Mean Platelet Volume 7.1 fL (6.9-10.8) Neutrophils (%) (Auto) 62.6 % (37.0-80.0) Lymphocytes (%) (Auto) 19.3 % (10.0-50.0) Monocytes (%) (Auto) 10.2 % (0.0-12.0) Eosinophils (%) (Auto) 6.9 % (0.0-7.0) Basophils (%) (Auto) 1.0 % (0.0-2.0) Neutrophils # (Auto) 4.2 10 ^3/uL (1.6-8.6) Lymphocytes # (Auto) 1.3 10 ^3/uL (0.4-5.4) Monocytes # (Auto) 0.7 10 ^3/uL (0-1.3) Eosinophils # (Auto) 0.5 10 ^3/uL (0-0.8) Basophils # (Auto) 0.1 10 ^3/uL (0-0.2) Nucleated Red Blood Cells 0.1 % Creatinine 0.23 mg/dL (0.550-1.02) Glomerular Filtration Rate Calc 122 mL/min (>90) POC Glucose 92 mg/dl (70-106) Sodium Level 137 mmol/L (136-145) Potassium Level 3.4 mmol/L (3.5-5.1) Chloride Level 105 mmol/L (98-107) Carbon Dioxide Level 23 mmol/L (20-31) Anion Gap 9 (5-15) Blood Urea Nitrogen < 5 mg/dL (9-23) BUN/Creatinine Ratio 21.7 (10.0-20.0) Serum Glucose 99 mg/dL (74-106) Calcium Level 9.4 mg/dL (8.7-10.4) Vancomycin Level Trough 16.8 ug/mL (5-10) Test 02/14/25 05:50 02/13/25 05:27 02/12/25 07:36 02/12/25 05:03 Total Bilirubin 0.7 mg/dL (0.2-1.0) Aspartate Amino Transferase (AST) 28 U/L (13-40) Alanine Aminotransferase (ALT) 13 U/L (7-40) Alkaline Phosphatase 73 U/L (46-116) Total Protein 5.2 g/dL (5.7-8.2) Albumin 2.9 g/dL (3.2-4.8) Magnesium Level 1.6 mg/dL (1.6-2.6) Platelet Estimate Adequate Hypochromasia (manual) Slight Microcytosis Slight Thyroid Stimulating Hormone (TSH) 2.20 uIU/mL (0.55-4.78) Hemoglobin A1c < 3.8 % A1C (<5.7) Lactic Acid Level 0.9 mmol/L (0.4-2.0) Test 02/12/25 05:00 02/11/25 23:59 02/11/25 20:47 02/11/25 16:19 Influenza Type A Antigen Negative (Negative) Influenza Type B Antigen Negative (Negative) SARS-CoV-2 Antigen (Rapid) Negative (NEGATIVE) Vitamin D 25-Hydroxy 56.5 ng/mL (30.0-100) Urine Color Yellow (Yellow) Urine Clarity Turbid (Clear) Urine pH 6.0 (5.0-9.0) Urine Specific [place] 1.031 (1.001-1.035) Urine Protein 1+ (Negative) Urine Ketones 1+ (Negative) Urine Blood Negative /uL (Negative) Urine Nitrite Negative (Negative) Urine Bilirubin Negative (Negative) Urine Urobilinogen Normal mg/dL (Negative) Urine Leukocyte Esterase Trace /uL (Negative) Urine RBC <1 /hpf (0 - 4) Urine Microscopic WBC 25 /HPF (0-5) Urine Squamous Epithelial Cells Mod /hpf (<5) Urine Bacteria Few /hpf (None Seen) Urine Hyaline Casts Mod /lpf (0 - 2) Urine Mucus Few (None Seen) Urine Yeast (Budding) Few /hpf (None Seen) Urine Glucose Normal mg/dL (Normal) Prothrombin Time 11.2 sec (9.3-11.8) Prothrombin Time INR 1.06 (0.9-1.15) Creatine Kinase 25 U/L (34-145) Troponin I High Sensitivity < 3 ng/L (</=34) Lipase 20 U/L (12-53) Other Laboratory Tests 02/17/25 06:16 02/16/25 06:39 Brief Hx & Hospital Course: patient is a 69-year-old paraplegic female with past medical history of diabetes, neurogenic bladder, history of necrotizing fascitis, sacral wound with a right gluteal wound, 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 According to the patient and daughter at bedside, yesterday on 02/10/2025 as she was having her self catheter changed by her caregiver, they heard a pop and subsequently her right leg gave way. Patient went to urgent Care, and had imaging study done, upon arrival to the ER discussion was held with orthopedic Dr. Pemberton, who reviewed the imaging study and advised he will perform ORIF tomorrow. Per patient and daughter at bedside, patient was recently discharged 3 days ago from [facility] due to extensive sacral ulcers and wounds. She lab workup revealed WBC 13.8, neutrophil 89.5, hemoglobin 8.2 dropped to 6.5 later on, MCV 75.7, RDW 18.0, platelets 519, lactic acid 3.4, albumin 2.6,. CT abdomen pelvis showed fractured right femur subtrochanteric, large abscess associated with fracture and open wound right flank. Also noted to have severe constipation, small-bowel ileus, bilateral ovarian cysts and a right lung consolidate, anasarca. UA showed 25 WBCs and a few bacteria, CXR showed pulmonary vascular congestion. Doppler study of the right lower extremity negative for DVT. Mild cardiomegaly and mild prominence of the central pulmonary vasculature. Small right pleural effusion. 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 According to the patient and daughter at bedside, yesterday on 02/10/2025 as she was having her self catheter changed by her caregiver, they heard a pop and subsequently her right leg gave way. Patient went to urgent Care, and had imaging study done, upon arrival to the ER discussion was held with orthopedic Dr. Pemberton, who reviewed the imaging study and advised he will perform ORIF tomorrow. Per patient and daughter at bedside, patient was recently discharged 3 days ago from [facility] due to extensive sacral ulcers and wounds. She lab workup revealed WBC 13.8, neutrophil 89.5, hemoglobin 8.2 dropped to 6.5 later on, MCV 75.7, RDW 18.0, platelets 519, lactic acid 3.4, albumin 2.6,. CT abdomen pelvis showed fractured right femur subtrochanteric, large abscess associated with fracture and open wound right flank. Also noted to have severe constipation, small-bowel ileus, bilateral ovarian cysts and a right lung consolidate, anasarca. Doppler study of the lower extremity negative for DVT. UA showed 25 WBCs and a few bacteria, CXR showed pulmonary vascular congestion. Doppler study of the right lower extremity negative for DVT. Mild cardiomegaly and mild prominence of the central pulmonary vasculature. Small right pleural effusion. During hospital course patient developed severe anemia and patient had blood transfusion. Patient was seen by orthopedic surgeon recommended for conservative management because of patient's poor prognosis and multiple comorbidity. Patient was also seen by surgery and recommended for conservative management. No surgical intervention done at during hospitalization. Provider spoke to patient's community surgeon Dr. beth , recommended there is nothing much to do. Recommended patient follow up with the him as an outpatient. [place] Wound culture revealed Pseudomonas aeruginosa and Acinetobacter baumannii and Enterococcus faecalis-suspected contaminated sample or surface bacteria. Blood Culture no growth. Patient was treated with IV antibiotic cefepime and vancomycin. Patient's symptom improved gradually. Patient is being discharged to SNF for wound care and IV antibiotic. Patient was advised to continue IV antibiotic cefepime and vancomycin as prescribed by patient is outpatient infectious disease Dr. with following up with a vanc trough and CBC and CMP. Patient was hemodynamically stable on discharge. Assessment #Right femoral subtrochanteric pathologic fracture #Extensive sacral wounds, infected Sepsis due to above Severe anemia, status post blood transfuse Lactic acidosis, improving Small-bowel ileus Right lung consolidate, questionable pneumonia Bilateral pleural effusion DM2 Bilateral ovarian cysts Constipation # paraplegia # anasarca # severe protein calorie malnutrition Plan Patient was advised to continue IV antibiotic cefepime and vancomycin as prescribed I patient's outpatient infectious disease doctor or MDat SNF and follow up with the vanco and CBC and CMP Resume other home medications as prescribed Wound care at SNF as per protocol Patient was advised to follow up with the primary care physician in 1 week Patient was also advised to follow up with the outpatient infectious disease doctor and also patient was community surgeon overseeing patient's sacral wound Operations or Procedures [place] [id number] Ph: [phone] DIAGNOSTIC IMAGING Diagnostic Imaging Report : [id number] Signed PATIENT: AYO JENSEN ACCT: [id number] UNIT: [id number] : 1955 LOC: ER ROOM / BED: / AGE / SEX: 69 / F ADM STATUS: REG ER SERVICE 01 ORDERING PHYSICIAN: BAILEY KOCH PAC PROCEDURE(s): CXRP - CHEST PORTABLE REASON: Shortness of breath ORDER NUMBER(s): [id number], ACCESSION NUMBER(s): [id number] CHEST RADIOGRAPH Indication: Shortness of breath Technique: Single frontal view of the chest was obtained COMPARISON: None FINDINGS: Lines and Tubes: Right PICC in satisfactory position Lungs: Congestion Pleura: No effusion. No pneumothorax. Cardiomediastinal contours: Unremarkable Bones: Unremarkable IMPRESSION: Pulmonary vascular congestion Right PICC in satisfactory position. ATED BY: JIMMY SORENSON MD DICTATED DATE/TIME: 02/11/25 1633 SIGNED BY: JIMMY SORENSON MD SIGNED DATE/TIME: 02/11/25 1633 CC: [place] [id number] [place] [id number] Ph: [phone] DIAGNOSTIC IMAGING Diagnostic Imaging Report : [id number] Signed PATIENT: AYO JENSEN ACCT: [id number] UNIT: [id number] : 1955 LOC: ER ROOM / BED: / AGE / SEX: 69 / F ADM STATUS: REG ER SERVICE 49 ORDERING PHYSICIAN: BAILEY KOCH PAC PROCEDURE(s): ABPLIV - CT AB PEL WITH IV CON ONLY REASON: Evaluation of penetrating bedsores throughout the sacrum ORDER NUMBER(s): [id number], ACCESSION NUMBER(s): [id number] Exam: CT CT AB PEL WITH IV CON ONLY History: Evaluation of penetrating bedsores throughout the sacrum Comparison Study: None Contrast: Type of contrast: Contrast injected: Contrast wasted: 0 TECHNIQUE: Multidetector CT of abdomen pelvis with IV contrast. Radiation Dose Information: CT Dose: CTDI volume is 8.36 mGy. Dose-length product is 498.39 mGy*cm FINDINGS: There are bilateral large effusions in the lung bases consolidative atelectasis involving the right posterior lower lobe heart is still within normal limits for size the esophagus is unremarkable. Adrenals and kidneys demonstrate a simple cyst involving the right kidney. There are dense calcifications in the abdominal aorta including the origins of the superior mesenteric artery in the renal arteries. Gallbladder is filled with fluid there is anasarca There is a dislocated fracture involving the proximal right femur fracture is sub trochanteric. There appears to be a large abscess involving the right lower extremity associated with a fracture. And there is gas tracking along the right femoral shaft gas is tracking along the right flank. Patient has a large stool burden small bowel is dilated the normal limits dilated fluid 4 cm which is abnormal. Patient has a benavides catheter in the bladder uterus is retroverted appear to be large bilateral ovarian cysts the left cyst measures 6.05 cm in the right ovarian cyst measures 6.7 cm IMPRESSION: There is a fractured right femur subtrochanteric and is dislocated and there is a large abscess associated with the fracture and there is gas tracking along the right femoral shaft and also along the right flank where there is an open wound and associated with a fracture. There is severe constipation and There is also small-bowel ileus patient appears to have bilateral ovarian cysts. There are bilateral large pleural effusions lung bases along with consolidate in the right posterior lung base. There is also anasarca. ATED BY: BRIAN BARRIENTOS MD DICTATED DATE/TIME: 02/11/252110 SIGNED BY: BRIAN BARRIENTOS MD SIGNED DATE/TIME: 02/11/252110 CC: [place] [address] Ph: [phone] DIAGNOSTIC IMAGING Diagnostic Imaging Report : [id number] Signed PATIENT: AYO JENSEN ACCT: [id number] UNIT: [id number] : 1955 LOC: OVERFLOW ROOM / BED: [address] [place] [address] AGE / SEX: 69 / F ADM STATUS: ADM IN SERVICE 02 ORDERING PHYSICIAN: LIONEL REID RESIDENT PROCEDURE(s): CXR2 - CHEST TWO VIEWS ROUTINE REASON: sob ORDER NUMBER(s): [id number], ACCESSION NUMBER(s): [id number] EXAM: XY CHEST TWO VIEWS ROUTINE CLINICAL HISTORY: sob TECHNIQUE: Frontal and lateral views of the chest WID: COMPARISON: None FINDINGS: Lines and tubes: There is a right PICC in place with tip projecting over the low SVC. Chest: Mild cardiomegaly with mild prominence of the central pulmonary vasculature. No pneumothorax. Small right pleural effusion. Right basilar consolidation. The osseous structures are grossly intact. Multilevel thoracic spondylosis. IMPRESSION: Mild cardiomegaly and mild prominence of the central pulmonary vasculature. Small right pleural effusion. ATED BY: BIBIANA LOYD MD DICTATED DATE/TIME: 02/12/2512 SIGNED BY: BIBIANA LOYD MD SIGNED DATE/TIME: 02/12/2512 CC: [place] [id number] Ph: [phone] DIAGNOSTIC IMAGING Diagnostic Imaging Report : [id number] Signed PATIENT: AYO JENSEN ACCT: [id number] UNIT: [id number] : 1955 LOC: [facility] ROOM / BED: [address] [place] [address] / A AGE / SEX: 69 / F ADM STATUS: ADM IN SERVICE 4 ORDERING PHYSICIAN: IKER SAN PROCEDURE(s): RLDVT - RT Lower DVT REASON: Right lower limb swelling ORDER NUMBER(s): [id number], ACCESSION NUMBER(s): [id number] EXAM: US Duplex Right Lower Extremity Veins CLINICAL INDICATION: Right lower limb swelling TECHNIQUE: Real-time duplex ultrasound scan of the right lower extremity veins integrating B-mode two-dimensional vascular structure, Doppler spectral analysis, color flow Doppler imaging and compression. COMPARISON: None FINDINGS: DEEP VEINS: Unremarkable. No DVT in the visualized common femoral, femoral, proximal deep femoral or popliteal veins. The veins demonstrate normal color flow, are normally compressible, with normal phasic flow and/or augmentation response. SUPERFICIAL VEINS: Unremarkable. No thrombus in the visualized great saphenous vein. SOFT TISSUES: No acute findings. No popliteal cyst. OTHER FINDINGS: . None. IMPRESSION: No DVT. ATED BY: BAILEY JOYCE MD DICTATED DATE/TIME: 02/12/25723 SIGNED BY: BAILEY JOYCE MD SIGNED DATE/TIME: 02/12/25723 CC: [place] [id number] Ph: [phone] DIAGNOSTIC IMAGING Diagnostic Imaging Report : [id number] Signed PATIENT: AYO JENSEN ACCT: [id number] UNIT: [id number] : 1955 LOC: [facility] ROOM / BED: 025 / B AGE / SEX: 69 / F ADM STATUS: ADM IN SERVICE 2 ORDERING PHYSICIAN: GIANCARLO MARTIN PROCEDURE(s): LLDVT - LT Lower DVT REASON: lrg swelling ORDER NUMBER(s): [id number], ACCESSION NUMBER(s): [id number] US LT LOWER DVT US 02/15/2025 08:54 AM Clinical History: lrg swelling Comparison: US RT LOWER DVT on DOS: 02/12/25 Technique: Duplex Doppler evaluation of the deep venous system of the left lower extremity from the common femoral vein to the popliteal vein including color Doppler and spectral/pulsed waveform analysis was performed. Findings: The common femoral vein demonstrates appropriate compressibility and waveform variability. There is compressibility/patency of the great saphenous vein at the proximal thigh. The femoral vein demonstrates appropriate compressibility and waveform variability. The deep femoral vein demonstrates appropriate compressibility and waveform variability. The popliteal vein demonstrates appropriate compressibility and waveform variability. There is color flow in the tibioperoneal trunk and posterior tibial vein. Impression: 1. No deep venous thrombosis left lower extremity. If clinical concern/symptoms persist or worsen, short-interval follow-up study is suggested. ATED BY: ROSE ANDERSON MD DICTATED DATE/TIME: 02/15/25940 SIGNED BY: ROSE ANDERSON MD SIGNED DATE/TIME: 02/15/25940 CC: Condition at Discharge: Stable Final Diagnosis/Problems List Right femoral subtrochanteric pathologic fracture #Extensive sacral wounds, infected Sepsis due to above Lactic acidosis, improving Small-bowel ileus Leukocytosis Right lung consolidate, questionable pneumonia Bilateral pleural effusion DM2 Bilateral ovarian cysts Constipation # paraplegia # anasarca # severe protein calorie malnutrition Discharge Disposition: Home with Health Services Discharge Instruct/Medications Follow Up/Referral: PLEASE FOLLOW UP WITH THE PRIMARY CARE PHYSICIAN AND ALSO YOUR COMMUNITY SURGEON Medications: Patient was advised to continue IV antibiotic cefepime and vancomycin as prescribed I patient's outpatient infectious disease doctor and follow up with the vanco and CBC and CMP Ferrous sulfate 325 mg p.o. daily Resume other home medications as prescribed Patient was advised to follow up with the primary care physician in 1 week Patient was also advised to follow up with the outpatient infectious disease doctor and also patient was community surgeon overseeing patient's sacral wound Discharge Statement: "Patient was advised to return to the ER or call 911 if any headaches, dizziness, shortness of breath, chest pain, abdominal pain, bleeding, fevers, or worsening of medical condition. Patient was counseled about treatment plan, medications, possible side effects, patientverbalized understanding. All questions were answered to the best of my ability. This discharge took greater then 30 minutes in planning, reviewing documentation, counseling the patient, and discussing with other team members." ASSESSMENT ASSESSMENT Assessment GIANCARLO MARTIN RESIDENT Feb 17, 2025 11:01
[2025-02-17] MEDS: ACETAMINOPHEN 325 MG TAB PO PRN (22:53)
[2025-02-18 01:00] VITALS: BP 121/53; PULSE 79; RESP 18; TEMP 97.6; O2SAT 99
[2025-02-18 05:00] VITALS: BP 138/64; PULSE 91; RESP 19; TEMP 97.7; O2SAT 97
[2025-02-18 06:13] LABS: Basophils # (auto) 0.1 10 ^3/uL (0-0.2); Lymphocytes # (auto) 1.8 10 ^3/uL (0.4-5.4); Monocytes # (auto) 0.8 10 ^3/uL (0-1.3); Monocytes % (auto) 10.4 % (0.0-12.0)
[2025-02-18 06:16] LABS: Basophils % (auto) 0.7 % (0.0-2.0); Eosinophils # (auto) 0.7 10 ^3/uL (0-0.8); Eosinophils % (auto) 8.4 % (0.0-7.0); Hematocrit 29.5 % (36.0-46.0); Hemoglobin 9.6 g/dL (12.2-16.2); Lymphocytes % (auto) 22.5 % (10.0-50.0); Mean Corpuscular Hemoglobin 25.2 pg (28.0-32.0); Mean Corpuscular Hgb Conc. 32.4 g/dL (32.0-36.0); Mean Corpuscular Volume 77.9 fL (80.0-100.0); Neutrophils # (auto) 4.5 10 ^3/uL (1.6-8.6); Platelet Count (auto) 527 10^3/uL (140-450); Red Blood Cells 3.79 10^6/uL (4.0-5.20); Red Cell Distribution Width 18.8 % (11.8-14.3); White Blood Cell 7.8 10^3/uL (4.4-10.8)
[2025-02-18 06:55] LABS: Alanine Aminotransferase 10 U/L (7-40); Alkaline Phosphatase 66 U/L (46-116); Anion Gap 9 (5-15); Aspartate Aminotransferase 16 U/L (13-40); BUN/Creatinine Ratio 40.9 (10.0-20.0); Blood Urea Nitrogen 9 mg/dL (9-23); Calcium 9.7 mg/dL (8.7-10.4); Carbon Dioxide 24 mmol/L (20-31); Glucose 89 mg/dL (74-106); Sodium 140 mmol/L (136-145)
[2025-02-18 06:56] LABS: Albumin 2.9 g/dL (3.2-4.8); Bilirubin, Total 0.3 mg/dL (0.2-1.0); Chloride 107 mmol/L (98-107); Potassium 3.2 mmol/L (3.5-5.1); Total Protein 5.2 g/dL (5.7-8.2)
[2025-02-18] MEDS: VANCOMYCIN 1GM/200ML PM 200 ML IV SCH (08:26)
[2025-02-18 09:00] VITALS: BP 142/61; PULSE 78; RESP 18; TEMP 98; O2SAT 96
[2025-02-18 10:52] VITALS: TEMP 36.7
--- NOTE | 2025-02-18 12:07 | DVHPNRES ---
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 According to the patient and daughter at bedside, yesterday on 02/10/2025 as she was having her self catheter changed by her caregiver, they heard a pop and subsequently her right leg gave way. Patient went to urgent Care, and had imaging study done, upon arrival to the ER discussion was held with orthopedic Dr. Pemberton, who reviewed the imaging study and advised he will perform ORIF tomorrow. Per patient and daughter at bedside, patient was recently discharged 3 days ago from [facility] due to extensive sacral ulcers and wounds. She lab workup revealed WBC 13.8, neutrophil 89.5, hemoglobin 8.2 dropped to 6.5 later on, MCV 75.7, RDW 18.0, platelets 519, lactic acid 3.4, albumin 2.6,. CT abdomen pelvis showed fractured right femur subtrochanteric, large abscess associated with fracture and open wound right flank. Also noted to have severe constipation, small-bowel ileus, bilateral ovarian cysts and a right lung consolidate, anasarca. Doppler study of the lower extremity negative for DVT. UA showed 25 WBCs and a few bacteria, CXR showed pulmonary vascular congestion. Doppler study of the right lower extremity negative for DVT. Mild cardiomegaly and mild prominence of the central pulmonary vasculature. Small right pleural effusion. During hospital course patient developed severe anemia and patient had blood transfusion. Patient was seen by orthopedic surgeon recommended for conservative management because of patient's poor prognosis and multiple comorbidity. Patient was also seen by surgery and recommended for conservative management. No surgical intervention done at during hospitalization. Wound culture revealed Pseudomonas aeruginosa and Acinetobacter baumannii and Enterococcus faecalis. Culture no growth. Patient was treated with IV antibiotic cefepime and vancomycin. Patient's symptom improved gradually. Patient is being discharged to SNF for wound care and IV antibiotic. Patient was advised to continue IV antibiotic cefepime and vancomycin as prescribed by patient is outpatient infectious disease DrLexi with following up with a vanc trough and CBC and CMP. Patient was hemodynamically stable on discharge. Patient was seen today for clinical evaluation. Labs and chart reviewed. Patient with a hypokalemia, replenished. Ordered ferrous sulfate 325 mg p.o. daily on discharge. In addition to other medications. Patient is scheduled to be discharged to [facility] post acute care. Objective vital signs Vital Sign Date Time Temp Pulse Resp B/P (MAP) Pulse Ox O2 Delivery O2 Flow Rate FiO2 02/18/25 10:52 36.7 02/18/25 09:00 78 18 142/61 (88) 96 02/18/25 08:18 Room Air* 0 21 Total Intake and Output 02/17/25 02/17/25 02/18/25 15:00 23:00 07:00 Intake Total 200 ml 900 ml 350 ml Output Total 450 ml 450 ml Balance 200 ml 450 ml -100 ml medications Current Medications Medications Dose Ordered Sig/Adore Route Start Time Stop Time Status Last Admin Dose Admin Acetaminophen 325 mg Q4HP PRN PO 02/11/25 23:15 02/18/25 04:09 325 MG Ondansetron HCl 4 mg Q4HP PRN IV 02/11/25 23:15 Docusate Sodium 100 mg BIDPRN PRN PO 02/11/25 23:15 02/13/25 21:24 100 MG Vancomycin HCl 0 ml @ 0 mls/hr UD IV 02/11/25 23:15 Piperacillin Sod/ Tazobactam Sod 100 ml @ 25 mls/hr Q6H IV 02/12/25 04:00 02/18/25 10:09 25 MLS/HR Polyethylene Glycol 17 gm DAILY PO 02/12/25 10:00 02/16/25 09:10 17 GM Pantoprazole Sodium 40 mg DAILY IV 02/13/25 10:00 02/18/25 10:10 40 MG Morphine Sulfate 1 mg Q4HP PRN IV 02/12/25 14:45 Hold Acetaminophen/ Hydrocodone Bitart 1 tab Q4HPRN PRN PO 02/13/25 12:00 02/18/25 08:26 1 TAB Hydromorphone HCl 0.5 mg Q4HPRN PRN IV 02/13/25 18:00 02/16/25 09:11 0.5 MG Diagnostic Test (Pha) 1 strip ACHS 02/13/25 22:00 02/18/25 06:03 1 STRIP Insulin Human Regular ACHS SC 02/13/25 22:00 02/17/25 22:06 2 UNITS Dextrose 50 ml UD PRN IV 02/13/25 21:45 Vancomycin HCl 200 ml @ 160 mls/hr Q18H IV 02/18/25 08:00 02/18/25 08:26 160 MLS/HR Examination General examination- patient is awake, alert, oriented HEENT- PEERLA, no acute nasal discharge Cardiovascular- S1-S2 audible, rate and rhythm regular, no murmur Respiratory- CTAB, no wheeze or rhonchi Gastrointestinal-nontender, bowel sound+. Nondistended Musculoskeletal-no acute joint swelling or tenderness or redness Lower extremity- bilateral leg edema, bilateral lower limb weakness, unable to move Neurological- paraplegia Psychiatry- denies depression or SI or HI Skin- patient has wound in the sacral area, right buttock, on the left buttock area laboratory and microbiology Laboratory Tests 02/18/25 05:39 Test 02/18/25 05:39 Range/Units Serum Glucose 89 74-106 mg/dL Microbiology Date/Time Source Procedure Growth Status 02/13/25 11:55 Sacrum Gram Stain - Final Resulted 02/13/25 11:55 Wound Culture - Preliminary Pseudomonas aeruginosa Acinetobacter baumanii/haemol Resulted 02/11/25 23:22 Blood Blood Culture - Final NO GROWTH AFTER 5 DAYS OF INCUBATION. Complete 02/11/25 20:42 Voided Urine Urine Culture - Final Presumptive Ayde albicans Complete Problem List/Assessment/Plan Problem List/Assessment/Plan Assessment and plan-As per social service patient is hospital bed is supposed to be delivered tomorrow between 11:00 a.m. to 1:00 p.m.. Patient's wound VAC is at the bedside and wound care team is supposed to put it on the wound. Patient can resume her IV home antibiotic as written before by infectious disease doctor. Right femoral subtrochanteric pathologic fracture - CT abdomen pelvis: There is a dislocated fracture involving the proximal right femur, subtrochanteric. There appears to be a large abscess involving the right lower extremity associated with the fracture. Gas tracking along the right femoral shaft, gas is seen tracking along the right flank. - consulted orthopedic-Dr. Nayyer recommended for nonsurgical treatment, - patient is community surgeon Dr. Richard Ross is going to to take care of the patient after discharge #Extensive sacral wounds, infected Sepsis due to above Lactic acidosis, improving - Large abscess associated with the fracture right femur - CT abdomen pelvis: Large abscess associated with the fracture and there was gas tracking along the right femoral shaft and also along the right flank where there is an open wound and associated with a fracture. - continue IV fluid as prescribed - IV vancomycin, IV Zosyn q.6 hours - acetaminophen 650 mg once, acetaminophen Q 25 mg q.4 - patient was seen by surgeon Dr. Wang # severe anemia likely microcytic hypochromic -status post 1 unit blood transfusion Small-bowel ileus - per patient she had a large bowel movement on 02/11/2025, CT abdomen pelvis shows severe constipation, small-bowel ileus. -continue current management Right lung consolidate, questionable pneumonia Bilateral pleural effusion - CXR: Mild cardiomegaly and mild prominence of the central pulmonary vasculature. Small right pleural effusion. - CT abdomen pelvis: Bilateral large pleural effusions lung bases with consolidate in the right posterior lung base. Anasarca. 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 Gusman , nursing staff, Total time spent on patient evaluation, chart review, assessment and plan, discussion discussion >35 minutes Plan discussed with: Patient, Spouse, Daughter, Other (RN) My Orders My Orders Orders - GIANCARLO MARTIN RESIDENT Procedure Category Date Status Time Communication Order ORDERS 02/17/25 Transmitted 16:50 * Liquor Bridge Operator Helper CONS 02/17/25 Transmitted Consult Discharge DISCHARGE 02/17/25 Transmitted 19:09 Potassium Er Tablet PHA 02/18/25 Logged (Klor-Con Tablet) 12:00 Dietary Evaluation Review Comments: 1. Disagree with current diet, increase CHO allotment to 60 gm/meal to support energy needs for wound healing 2. Will add Glucerna daily (provides 220 kcal, 10 gm pro per carton) 3. Monitor glycemic control, maintain BG <180 mg/dl while inpatient 4. Consider daily MVI w/ minerals, 500 mg Vit C, 220 mg zinc sulfate x 7-10 days given presence of multiple wounds Expected Outcomes/Goals: Maintain skin integrity, weight maintenance, wound healing. CC Plasma Assessment Blood Product Administration S: [id number] GIANCARLO MARTIN RESIDENT Feb 18, 2025 12:07
[2025-02-18] MEDS: POTASSIUM CHL 20 Meq TABLET PO ONE (12:24)
== END 2025-02-18 12:55 | DRG 871 ==
LOC: ER 15:08 → EDBD 15:08 → OVERFLOW 23:03 → TELE-CENTR 02-12 19:49 → TELE-EAST 02-13 17:24 → EAST 02-16 09:29
PROVIDERS: ADMIT Student in an Organized Health Care Education/Training Program; ATTEND Student in an Organized Health Care Education/Training Program
PROC: 30233N1 Transfusion of Nonautologous Red Blood Cells into Peripheral Vein, Percutaneous Approach (ICD-10-PCS; principal; 2025-02-12)
DX: A41.9 Sepsis, unspecified organism (principal); E43 Unspecified severe protein-calorie malnutrition; J69.0 Pneumonitis due to inhalation of food and vomit; J18.9 Pneumonia, unspecified organism; M84.451A Pathological fracture, right femur, initial encounter for fracture; E87.20 Acidosis, unspecified; J90 Pleural effusion, not elsewhere classified; L02.91 Cutaneous abscess, unspecified; G82.20 Paraplegia, unspecified; K56.7 Ileus, unspecified; Z20.822 Contact with and (suspected) exposure to COVID-19; D64.9 Anemia, unspecified; S31.000A Unspecified open wound of lower back and pelvis without penetration into retroperitoneum, initial encounter; N83.202 Unspecified ovarian cyst, left side; N83.201 Unspecified ovarian cyst, right side; E11.9 Type 2 diabetes mellitus without complications; Z79.1 Long term (current) use of non-steroidal anti-inflammatories (NSAID); Z79.899 Other long term (current) drug therapy; Z98.51 Tubal ligation status; Z68.26 Body mass index [BMI] 26.0-26.9, adult; X58.XXXA Exposure to other specified factors, initial encounter; Y93.89 Activity, other specified; Y92.89 Other specified places as the place of occurrence of the external cause; Y99.8 Other external cause status
CPT/HCPCS: 36415; 71045; 71046; 74177; 80048; 80053; 80202; 81001; 82306; 82550; 82565; 82728; 82962; 83036; 83540; 83550; 83605; 83690; 83735; 84443; 84484; 85014; 85018; 85025; 85610; 86850; 86900; 86901; 86920; 87040; 87077; 87081; 87086; 87088; 87186; 87205; 87426; 87804; 93306; 93971; 97163; G0378; J1815; J2003; J2405; J2470; J2543

== ENCOUNTER 2025-04-07 04:46 | Inpatient (IN) | payer MEDICARE, MEDICAID ==
[2025-04-07] VITALS (10 sets, daily range): BP systolic 133–172; BP diastolic 50–99; PULSE 92–107; RESP 17–32; TEMP 97.6–98.5; O2SAT 99
[~2025-04-07] VITALS: Ht 172.7 cm; Wt 55.0 kg
[2025-04-07 06:18] LABS: Basophils # (auto) 0 10 ^3/uL (0-0.2); Basophils % (auto) 0.5 % (0.0-2.0); Hematocrit 22.3 % (36.0-46.0); Hemoglobin 7.2 g/dL (12.2-16.2); Lymphocytes # (auto) 1.2 10 ^3/uL (0.4-5.4); Lymphocytes % (auto) 18.8 % (10.0-50.0); Mean Corpuscular Hemoglobin 23.7 pg (28.0-32.0); Mean Corpuscular Hgb Conc. 32.1 g/dL (32.0-36.0); Mean Corpuscular Volume 73.9 fL (80.0-100.0); Monocytes # (auto) 0.7 10 ^3/uL (0-1.3); Monocytes % (auto) 10.5 % (0.0-12.0); Neutrophils # (auto) 3.6 10 ^3/uL (1.6-8.6); Neutrophils % (auto) 55.2 % (37.0-80.0); Platelet Count (auto) 527 10^3/uL (140-450); Red Blood Cells 3.02 10^6/uL (4.0-5.20); Red Cell Distribution Width 18.2 % (11.8-14.3); White Blood Cell 6.4 10^3/uL (4.4-10.8)
[2025-04-07 06:23] LABS: Potassium 4.4 mmol/L (3.5-5.1); Sodium 143 mmol/L (136-145)
[2025-04-07 06:24] LABS: Anion Gap 11 (5-15); Calcium 9.8 mg/dL (8.7-10.4); Carbon Dioxide 23 mmol/L (20-31)
[2025-04-07 06:26] LABS: Chloride 109 mmol/L (98-107)
[2025-04-07 06:29] LABS: BUN/Creatinine Ratio 47.3 (10.0-20.0); Glucose 80 mg/dL (74-106)
[2025-04-07 06:30] LABS: Blood Urea Nitrogen 26 mg/dL (9-23)
--- NOTE | 2025-04-07 06:54 | ED.PDOC ---
History of Present Illness HPI Comments This is a 69 year old female BIBA and accompanied by daughter presenting to the ED with chief complaint of abnormal labs. Daughter reports that the patient is currently staying at [facility] and was found to have a "critically low" hemoglobin after blood work this morning. Daughter relays that the patient was sent to the ED for blood transfusion. Daughter states that the patient has multiple wounds to her back and pain due to the wounds, requiring wound care around the clock along with pain control with Troy 5/325mg. Patient denies any weakness, dizziness, chest pain, SOB, N/V, abdominal pain, hematemesis, or melena. Chief Complaint: Abnormal LAB's Time Seen by MD: 06:50 Reviewed Notes: Nurses Notes, Commercial Intern Notes, Medications, Allergies Allergies: Uncoded Allergies: BLOOD THINNERS (Adverse Reaction, Severe, 03/16/19) Home Meds Reported Medications Cholecalciferol (VITAMIN D3) 5,000 Unit Tab, 5000 UNIT PO DAILY, TAB 03/16/19 Metformin Hydrochloride (Metformin Hcl) 500 Mg Tab, 500 MG PO DAILY for 30 Days, MG 03/16/19 Mirtazapine (REMERON) 30 Mg Tab, 1 TAB PO HS, #30 TAB 1 Refill 03/16/19 Celecoxib (Celebrex) 200 Mg Cap, 1 CAP PO BID, #30 CAP 2 Refills 03/16/19 Duloxetine Hcl (Cymbalta) 60 Mg Cap, 1 CAP PO DAILY, #90 CAP 3 Refills 03/16/19 Sulfamethoxazole W/Trimethopri (Trimethoprim/Sulfamethoxa) 1 Tab Tab, 1 TAB PO HS, #14 TAB 03/16/19 Diazepam (Valium) 10 Mg Tab, 1 TAB PO PRN, #30 TAB 03/16/19 Tizanidine Hydrochloride (Zanaflex) 4 Mg Cap, 1 CAP PO HS, #30 CAP 03/16/19 Tramadol Hcl (Tramadol Hcl) 50 Mg Tab, 2 TAB PO Q6HP PRN for MODERATE PAIN, MG 03/16/19 Oxybutynin Chloride (Ditropan Xl) 5 Mg Tab, 5 MG PO TID for 30 Days, MG 03/16/19 Information Source: Patient, Relative (Child) Mode of Arrival: EMS Severity: Moderate Timing: Hours Duration: Since onset Prehospital treatment: None Past Medical History PAST MEDICAL HISTORY: DM Past Medical History (Other): Right femoral fracture, Paraplegic Surgical History: Denies all surgeries INSURANCE SALES SPECIALIST History: Ovarian Cysts Family History Family History: Reviewed,noncontributory to illness Social History Smoker: Non-Smoker Alcohol: Denies ETOH Use Drugs: Denies Drug Use Lives In: Home, Assisted Care Constitutional: denies: chills, diaphoresis, fatigue, fever, malaise, sweats, weakness, others EENTM: denies: blurred vision, double vision, ear bleeding, ear discharge, ear drainage, ear pain, ear ringing, eye pain, eye redness, hearing loss, mouth pain, mouth swelling, nasal discharge, nose bleeding, nose congestion, nose pain, photophobia, tearing, throat pain, throat swelling, voice changes, others Respiratory: denies: cough, hemoptysis, orthopnea, SOB at rest, shortness of breath, SOB with excertion, stridor, wheezing, others Cardiovascular: denies: chest pain, dizzy spells, diaphoresis, Dyspnea on exertion, edema, irregular heart beat, left arm pain, lightheadedness, palpitati ons, PND, syncope, others Gastrointestinal: denies: abdomen distended, abdominal pain, blood streaked bowels, constipated, diarrhea, dysphagia, difficulty swallowing, hematemesis, melena, nausea, poor appetite, poor fluid intake, rectal bleeding, rectal pain, vomiting, others Genitourinary: denies: abnormal vagina bleeding, burning, dyspareunia, dysuria, flank pain, frequency, hematuria, incontinence, pain, , vagina discharge, urgency, others Neurological: denies: dizziness, fainting, headache, left sided numbness, left sided weakness, numbness, paresthesia, pre-existing deficit, right sided numbness, right sided weakness, seizure, speech problems, tingling, tremors, weakness, others Musculoskeletal: denies: back pain, gout, joint pain, joint swelling, muscle pain, muscle stiffness, neck pain, others Integumetry: denies: bruises, change in color, change in hair/nails, dryness, laceration, lesions, lumps, rash, wounds, others Allergic/Immunocompromised: denies: Difficulty Healing, Frequent Infections, Hives, Itching, others Hematologic/Lymphatic: denies: anemia, blood clots, easy bleeding, easy bruisin g, swollen glands, others Endocrine: denies: excessive hunger, excessive sweating, excessive thirst, excessive urination, flushing, intolerance to cold, intolerance to heat, unexplained weight gain, unexplained weight loss, others Psychiatric: denies: anxiety, bipolar disorder, depression, hopeless, panic disorder, schizophrenia, sleepless, suicidal, others All Other Systems: Reviewed and Negative Physical Exam General Appearance: No Apparent Distress, Normal HEENT: Normal ENT Inspection, Pharynx Normal, TMs Normal Neck: Full Range of Motion, Non-Tender, Normal, Normal Inspection Respiratory: Chest Non-Tender, Lungs Clear, No Accessory Muscle Use, No Respiratory Distress, Normal Breath Sounds Cardiovascular: No Edema, No JVD, No Murmur, No Gallop, Normal Peripheral Pulses, Regular Rate/Rhythm Breast Exam: Deferred Gastrointestinal: No Organomegaly, Non Tender, No Pulsatile Mass, Normal Bowel Sounds, Soft Genitalia: Deferred Pelvic: Deferred Rectal: Deferred Extremities: No calf tenderness, Normal capillary refill, Normal inspection, Normal range of motion, Non-tender, No pedal edema Musculoskeletal : Apperance: Normal Neurologic: Alert, documentation spec II-XII nml as Tested, No Motor Deficits, Normal Affect, Normal Mood, No Sensory Deficits Cerebellar Function: Normal Reflexes: Normal Skin: Dry, Pallor, Warm Lymphatic: No Adenopathy Was a procedure done? Was a procedure done?: No Differential Dx Considerations may include: Anemia X-Ray, Labs, Meds, VS Vital Signs Date Time Temp Pulse Resp B/P (MAP) Pulse Ox O2 Delivery O2 Flow Rate FiO2 04/07/25 06:29 92 04/07/25 05:31 98.0 92 21 162/75 (104) 100 98.0 04/07/25 04:56 98.3 90 18 158/70 (99) 100 98.3 Lab Test 04/07/25 05:57 Range/Units White Blood Count 6.4 4.4-10.8 10^3/uL Red Blood Count 3.02 L 4.0-5.20 10^6/uL Hemoglobin 7.2 L 12.2-16.2 g/dL Hematocrit 22.3 L 36.0-46.0 % Mean Corpuscular Volume 73.9 L 80.0-100.0 fL Mean Corpuscular Hemoglobin 23.7 L 28.0-32.0 pg Mean Corpuscular Hemoglobin Concent 32.1 32.0-36.0 g/dL Red Cell Distribution Width 18.2 H 11.8-14.3 % Platelet Count 527 H 140-450 10^3/uL Mean Platelet Volume 7.1 6.9-10.8 fL Neutrophils (%) (Auto) 55.2 37.0-80.0 % Lymphocytes (%) (Auto) 18.8 10.0-50.0 % Monocytes (%) (Auto) 10.5 0.0-12.0 % Eosinophils (%) (Auto) 15.0 H 0.0-7.0 % Basophils (%) (Auto) 0.5 0.0-2.0 % Neutrophils # (Auto) 3.6 1.6-8.6 10 ^3/uL Lymphocytes # (Auto) 1.2 0.4-5.4 10 ^3/uL Monocytes # (Auto) 0.7 0-1.3 10 ^3/uL Eosinophils # (Auto) 1.0 H 0-0.8 10 ^3/uL Basophils # (Auto) 0 0-0.2 10 ^3/uL Nucleated Red Blood Cells 0.0 % Sodium Level 143 136-145 mmol/L Potassium Level 4.4 3.5-5.1 mmol/L Chloride Level 109 H 98-107 mmol/L Carbon Dioxide Level 23 20-31 mmol/L Anion Gap 11 5-15 Blood Urea Nitrogen 26 H 9-23 mg/dL Creatinine 0.55 0.550-1.02 mg/dL Glomerular Filtration Rate Calc 99 >90 mL/min BUN/Creatinine Ratio 47.3 H 10.0-20.0 Serum Glucose 80 74-106 mg/dL Calcium Level 9.8 8.7-10.4 mg/dL Time of 1ST Reevaluation: 07:50 Reevaluation 1ST: Unchanged Patient Education/Counseling: Diagnosis, Treatment Family Education/Counseling: Diagnosis, Treatment Additional Information Previous visits reviewed: 02/11/25 for Femoral neck fracture The following tests were ordered, and results were reviewed by me: CBC, BMP, Type and Screen, Stool Occult, Chest XR Additional Information was gathered from interviewing the following independent historians: Daughter I reviewed and agreed with the following test results read by other providers: Chest XR I discussed treatment and results with medical personnel and: patient and daughter Comprehensive systems review obtained and negative except for what is stated in the HPI. Departure 1 Departure Time of Disposition: 07:00 (Patient wants to be full code.Patient with symptomatic anemia and worsening pain. We will transfuse the patient and admit for further workup and expert consultation) Impression: Primary Impression: Symptomatic anemia Additional Impressions: Pelvic pain S/P PICC central line placement Disposition: ADMITTED INPATIENT Admit to: Med Surg Condition: Guarded Critical Care Note Critical Care Time?: Yes Critical care comment: Symptomatic anemia Authorized and Performed by: Rhys Nayak MD Total critical care time: Approximately 37 minutes Due to a high probability of clinically significant, life threatening deterioration, the patient required my highest level of preparedness to intervene emergently and I personally spent this critical care time directly and personally managing the patient. This critical care time included obtaining a history; examining the patient; pulse oximetry; ordering and review of studies; arranging urgent treatment with development of a management plan; evaluation of patient's response to treatment; frequent reassessment; and, discussions with other providers. This critical care time was performed to assess and manage the high probability of imminent, life-threatening deterioration that could result in multi-organ failure. It was exclusive of separately billable procedures and treating other patients and teaching time. Please see my other sections and the rest of the note for further information on patient assessment and treatment. Stability Stability form required: No Heart Score Heart Score: Heart Score Response (Comments) Value History N/A 0 EKG N/A 0 Age N/A 0 Risk Factors N/A 0 Troponin N/A 0 Total 0 I personally scribed for RHYS NAYAK MD ([email or web address]) on 04/07/25 at 06:54. Electronically submitted by Candido Melendez ([email or web address]). RHYS NAYAK MD Apr 07, 2025 06:54
--- NOTE | 2025-04-07 08:14 | DVH ---
EXAM: XR Chest, 1 View CLINICAL INDICATION: verify picc line placement TECHNIQUE: Frontal view of the chest. COMPARISON: XY CHEST PORTABLE on DOS: 02/11/25 FINDINGS: LUNGS AND PLEURAL SPACES: Bibasilar atelectasis or pneumonia. Left pleural effusion. HEART: Unremarkable. No cardiomegaly. MEDIASTINUM: Unremarkable. Normal mediastinal contour. BONES/JOINTS: Unremarkable. No acute fracture. TUBES, LINES AND DEVICES: Status post right-sided PICC line with the distal tip in the proximal SVC . No pneumothorax. OTHER FINDINGS: . IMPRESSION: 1. Bibasilar atelectasis or pneumonia. 2. Status post right-sided PICC line with the distal tip in the proximal SVC. No pneumothorax.
[2025-04-07] MEDS: ONDANSETRON HCL 4 MG/2 ML VIAL IV ONE (08:52)
[2025-04-07] MEDS: MORPHINE SULFATE 4 MG/ML SYR/VIAL IV ONE (08:53)
[2025-04-07] MEDS ORDERED: DEXTROSE (50%) 50ML SYRG IV PRN (09:00)
[2025-04-07] MEDS ORDERED: ONDANSETRON HCL 4 MG/2 ML VIAL IV PRN (09:00)
[2025-04-07] MEDS ORDERED: ACETAMINOPHEN 325 MG TAB PO PRN (09:00)
--- NOTE | 2025-04-07 09:34 | DVHHP2 ---
History of Present Illness Reason for Visit: Anemia, unspecified History of Present Illness The patient is a 69-year-old female paraplegic with past medical history of right femoral fracture, ovarian cysts, hypertension, and diabetes mellitus presented to [facility] ED for evaluation of abnormal labs. As reported by daughter, patient is currently staying at [facility] and was found to have a "critically low" hemoglobin after blood work this morning. Daughter relays that the patient was sent to the ED for blood transfusion. Daughter states that the patient has multiple wounds to her back and pain due to the wounds, requiring wound care around the clock along with pain control with [place] 5/325mg. Patient was seen and evaluated in the ED, laboratory data shows WBC 6.4, hemoglobin 7.2, hematocrit 22.3, platelets 527, sodium 143, potassium 4.4, BUN 26, creatinine 0.55, glucose 80, calcium 9.8, blood pressure 162/75, pulse 92, temperature 98.0 F, O2 saturation 99% on room air. Chest x-ray revealing bibasilar atelectasis or pneumonia; status post right sided PICC line with the distal tip in the proximal SVC, no pneumothorax. Patient will receive 2 units of PRBC, please see medication orders section in the computer. On my assessment, patient denies chest pain, no headache, no dizziness, no diaphoresis, currently on oxygen, no diarrhea, no nausea, no vomiting, no fever, no chills. Patient was admitted for further evaluation and medical management. Past Medical History DM, Hypertension, Right femoral fracture, Paraplegic, Ovarian Cysts Past Surgical History Denies all surgeries Family History Reviewed, noncontributory to the management of this case. Past Social History The patient lives at home, denies smoking, alcohol or illicit drugs abuse. Review of Systems Constitutional: Yes: Weakness; No: Fever, Chills, Sweats, Malaise, Other Eyes: No: Pain, Vision change, Conjunctivae inflammation, Eyelid inflammation, Other, Redness ENT: No: Ear pain, Ear discharge, Nose pain, Nose discharge, Nose congestion, Mouth pain, Mouth swelling, Throat pain, Throat swelling, Other Respiratory: Shortness of breath; No: Cough, Dry, SOB with excertion, Wheezing, Hemoptysis, Pleuritic Pain, Sputum, Wheezing, Other Cardiovascular: No: Chest Pain, Palpitations, Orthopnea, Paroxysmal Noc. Dyspnea, Edema, Lt Headedness, Other Gastrointestinal: No: Nausea, Vomiting, Abdominal Pain, Diarrhea, Constipation, Melena, Hematochezia, Other Genitourinary: No Dysuria, No Frequency, No Incontinence, No Hematuria, No Retention; Other (Giron catheter in place) Musculoskeletal: No: other, neck pain, shoulder pain, arm pain, back pain, hand pain, leg pain, foot pain Skin: No: Rash, Lesions, Jaundice, Bruising, Other Neurological: Other (Paraplegic); No: Weakness, Numbness, Incoordination, Change in speech, Confusion, Seizures Allergies: Uncoded Allergies: BLOOD THINNERS (Adverse Reaction, Severe, 03/16/19) Medications Current Medications Medications Dose Ordered Sig/Adore Route Start Time Stop Time Status Last Admin Dose Admin Celecoxib 100 mg Q12HR PO 04/07/25 10:00 UNV Duloxetine HCl 60 mg DAILY PO 04/07/25 10:00 UNV Mirtazapine 30 mg HS PO 04/07/25 22:00 UNV Oxybutynin Chloride 5 mg Q8HR PO 04/07/25 14:00 UNV Azithromycin 250 ml @ 125 mls/hr DAILY IV 04/08/25 10:00 UNV Diagnostic Test (Pha) 1 strip ACHS 04/07/25 11:30 Insulin Human Regular ACHS SC 04/07/25 11:30 Dextrose 50 ml UD PRN IV 04/07/25 09:00 Sodium Chloride 10 ml Q8HR IV 04/07/25 14:00 Acetaminophen/ Hydrocodone Bitart 1 tab Q4HP PRN PO 04/07/25 09:00 UNV Ondansetron HCl 4 mg Q4HP PRN IV 04/07/25 09:00 UNV Docusate Sodium 100 mg BIDPRN PRN PO 04/07/25 09:00 Acetaminophen 650 mg Q6HP PRN PO 04/07/25 09:00 Morphine Sulfate 2 mg Q4HPRN PRN IV 04/07/25 09:00 UNV Exam Vital Signs Vital Signs Date Time Temp Pulse Resp B/P (MAP) Pulse Ox O2 Delivery O2 Flow Rate FiO2 04/07/25 09:12 98.2 96 19 154/74 98.2 04/07/25 08:00 100 04/07/25 07:30 Nasal Cannula* 3 32 General Appearance: Alert, Oriented X3, Cooperative, No acute distress HEENT: Atraumatic, PERRLA, EOMI, Mucous membr. moist/pink Respiratory: Clear to auscultation, Normal air movement Cardiovascular: Regular rate, Normal S1, Normal S2, No murmurs Abdominal: Normal bowel sounds, Soft, No tenderness, No hepatospenomegaly, No masses Extremities: No clubbing, No edema, Normal pulses, Other (Paraplegic) Skin: No rashes Neuro: Normal speech, Normal tone, Sensation intact, Cranial nerves 3-12 NL, Reflexes 2+, Other (Generalized weakness) Psych/Mental Status: Mental status NL, Mood NL Labs/Xrays Labs Test 04/07/25 05:57 Range/Units White Blood Count 6.4 4.4-10.8 10^3/uL Red Blood Count 3.02 L 4.0-5.20 10^6/uL Hemoglobin 7.2 L 12.2-16.2 g/dL Hematocrit 22.3 L 36.0-46.0 % Mean Corpuscular Volume 73.9 L 80.0-100.0 fL Mean Corpuscular Hemoglobin 23.7 L 28.0-32.0 pg Mean Corpuscular Hemoglobin Concent 32.1 32.0-36.0 g/dL Red Cell Distribution Width 18.2 H 11.8-14.3 % Platelet Count 527 H 140-450 10^3/uL Mean Platelet Volume 7.1 6.9-10.8 fL Neutrophils (%) (Auto) 55.2 37.0-80.0 % Lymphocytes (%) (Auto) 18.8 10.0-50.0 % Monocytes (%) (Auto) 10.5 0.0-12.0 % Eosinophils (%) (Auto) 15.0 H 0.0-7.0 % Basophils (%) (Auto) 0.5 0.0-2.0 % Neutrophils # (Auto) 3.6 1.6-8.6 10 ^3/uL Lymphocytes # (Auto) 1.2 0.4-5.4 10 ^3/uL Monocytes # (Auto) 0.7 0-1.3 10 ^3/uL Eosinophils # (Auto) 1.0 H 0-0.8 10 ^3/uL Basophils # (Auto) 0 0-0.2 10 ^3/uL Nucleated Red Blood Cells 0.0 % Sodium Level 143 136-145 mmol/L Potassium Level 4.4 3.5-5.1 mmol/L Chloride Level 109 H 98-107 mmol/L Carbon Dioxide Level 23 20-31 mmol/L Anion Gap 11 5-15 Blood Urea Nitrogen 26 H 9-23 mg/dL Creatinine 0.55 0.550-1.02 mg/dL Glomerular Filtration Rate Calc 99 >90 mL/min BUN/Creatinine Ratio 47.3 H 10.0-20.0 Serum Glucose 80 74-106 mg/dL Calcium Level 9.8 8.7-10.4 mg/dL PATIENT: AYO JENSEN ACCT: [id number] UNIT: [id number] : 1955 LOC: ER ROOM / BED: / AGE / SEX: 69 / F ADM STATUS: REG ER SERVICE [id number] ORDERING PHYSICIAN: RHYS RAJPUT MD PROCEDURE(s): CXRP - CHEST PORTABLE REASON: verify picc line placement ORDER NUMBER(s): [id number], ACCESSION NUMBER(s): [id number] EXAM: XR Chest, 1 View CLINICAL INDICATION: verify picc line placement TECHNIQUE: Frontal view of the chest. COMPARISON: XY CHEST PORTABLE on DOS: 02/11/25 FINDINGS: LUNGS AND PLEURAL SPACES: Bibasilar atelectasis or pneumonia. Left pleural effusion. HEART: Unremarkable. No cardiomegaly. MEDIASTINUM: Unremarkable. Normal mediastinal contour. BONES/JOINTS: Unremarkable. No acute fracture. TUBES, LINES AND DEVICES: Status post right-sided PICC line with the distal tip in the proximal SVC. No pneumothorax. OTHER FINDINGS: . IMPRESSION: 1. Bibasilar atelectasis or pneumonia. 2. Status post right-sided PICC line with the distal tip in the proximal SVC. No pneumothorax. Assessment/Plan Assessment/Plan Symptomatic anemia Pelvic pain Wound of back Generalized weakness Pneumonia, unspecified organism S/P PICC central line placement Plan 1. Admit to telemetry unit 2. Breathing treatment 3. Pain control management 4. IV antibiotic management 5. Management of fluids and electrolytes 6. Consultation for hospitalist/wound care 7. Diagnostic test chest x-ray 8. DVT prophylaxis-on SCDs 9. Repeat labs CBC, CMP in a.m. 10. Home medication reviewed and reconciled 11. Continue with current medical management 12. Treatment plan discussed with patient and RN. Patient verbalized understanding. Plan discussed with: Patient, Daughter (At bedside), Other (RN) My Orders Orders - JEOVANNY CANNON DNP Procedure Category Date Status Time Celecoxib Capsule PHA 04/07/25 Logged (Celebrex Capsule) 10:00 Duloxetine Hcl PHA 04/07/25 Logged Capsule (Cymbalta 10:00 Mirtazapine Tablet PHA 04/07/25 Logged (Remeron Tablet) 22:00 Oxybutynin Chloride PHA 04/07/25 Logged Tablet (Ditropan Tab 14:00 Azithromycin 500mg/ PHA 04/08/25 Logged 250ml (Zithromax 50 10:00 Azithromycin 500mg/ PHA 04/07/25 Logged 250ml (Zithromax 50 09:00 Glucose Blood PHA 04/07/25 In Process (Accu-Chek Comfort 11:30 Insulin R (Human) PHA 04/07/25 In Process (Insulin R) 11:30 Dextrose 50% Syringe PHA 04/07/25 In Process 09:00 Allergies GLENDA 04/07/25 In Process 08:47 Code Status CODE 04/07/25 Transmitted 08:47 Sodium Chloride Lock PHA 04/07/25 In Process (Saline Lock Ns) 14:00 Oxygen Per Hour RT 04/07/25 Transmitted 08:47 Hydrocodone-Acet PHA 04/07/25 Logged 5/325mg Tab ([place] 09:00 Ondansetron Hcl PHA 04/07/25 Logged (Zofran) 09:00 Docusate Sodium PHA 04/07/25 In Process Capsule (Colace 09:00 Fall Risk Precautions GLENDA 04/07/[address] 08:47 Complete Blood Count LAB 04/08/25 Verified 04:00 Comprehensive LAB 04/08/25 Verified Metabolic Panel 04:00 Condition: Serious GLENDA 04/07/25 In Process 08:47 Acetaminophen Tablet PHA 04/07/25 In Process (Tylenol Tablet) 09:00 Maintain Bed Rest GLENDA 04/07/25 In Process 08:47 Morphine Sulfate PHA 04/07/25 Logged Injection 09:00 Sequential GLENDA 04/07/25 In Process Compression Device Consistent DIET 04/07/25 [facility]mitted [facility]Diabetes Breakfast Admit ADMIT 04/07/25 Transmitted 09:33 Nitroglycerin PHA 04/07/25 Transmitted Sublingual (Ntrostat 09:45 Morphine Sulfate PHA 04/07/25 Transmitted Injection 09:45 Stat Ekg For Chest [facility] 04/07/25 Transmitted Pain 09:33 Notify Of Changes [facility] 04/07/25 Transmitted From Base 09:33 Motor Installer For [facility] 04/07/25 Transmitted 24 Hours 09:33 Emergency Dysrhythmia [facility] 04/07/25 Transmitted Protocol 09:33 Rhythm Strips Once [facility] 04/07/25 Transmitted Every Shift 09:33 Oxygen By Nasal RT 04/07/25 Transmitted Cannula 09:33 Problem List: (1) Symptomatic anemia (2) Wound of back (3) Pelvic pain (4) Generalized weakness (5) Pneumonia, unspecified organism (6) S/P PICC central line placement Date of Service: Apr 07, 2025 Billing Provider: JEOVANNY CANNON DNP Common Visit Codes: [id number] INP/OBS CARE (HIGH) JEOVANNY CANNON DNP Apr 07, 2025 09:34
[2025-04-07] MEDS ORDERED: NITROGLYCERIN 0.4 MG SL TAB SL PRN (09:45)
[2025-04-07] MEDS ORDERED: MORPHINE SULFATE 4 MG/ML SYR/VIAL IV PRN (10:00)
[2025-04-07] MEDS: CELECOXIB 100 MG CAP PO SCH (10:21)
[2025-04-07] MEDS: DULoxetine HCL 30 MG CAP PO SCH (10:21)
[2025-04-07] MEDS: AZITHROMYCIN 500MG/ 250ML 250 ML IV ONE (10:32)
[2025-04-07] MEDS: ACCU-CHEK COMFORT CURVE STRIP VI SCH (11:10)
[2025-04-07] MEDS: InsuLIN REG 1unit/0.01ml Soln (100units/ml) SC SCH (11:10)
[2025-04-07] MEDS: SODIUM CHLOR 0.9% PF (SALINE LOCK) 10ML VIAL/SYR IV SCH (13:14)
[2025-04-07] MEDS: OXYBUTYNIN CHL 5 MG TAB PO SCH (13:28)
[2025-04-07] MEDS: HYDROcodone-ACET 5/325MG TAB PO PRN (20:09)
[2025-04-07] MEDS ORDERED: ASCO500C49 PO (20:46)
[2025-04-07] MEDS ORDERED: [UNRECOGNIZED DRUG - CODE] PO (20:46)
[2025-04-07] MEDS: MIRTAZAPINE 30 MG TAB PO SCH (21:06)
[2025-04-08] VITALS (8 sets, daily range): BP systolic 128–186; BP diastolic 67–90; PULSE 96–105; RESP 14–20; TEMP 97.5–98.3; O2SAT 97–100
[2025-04-08] MEDS: hydrALAZINE HCL 20 MG/ML VL IV ONE (01:07)
[2025-04-08 05:41] LABS: Basophils # (auto) 0 10 ^3/uL (0-0.2); Basophils % (auto) 0.8 % (0.0-2.0); Eosinophils # (auto) 0.6 10 ^3/uL (0-0.8); Eosinophils % (auto) 10.8 % (0.0-7.0); Hematocrit 36.2 % (36.0-46.0); Lymphocytes # (auto) 1.4 10 ^3/uL (0.4-5.4); Lymphocytes % (auto) 25.3 % (10.0-50.0); Mean Corpuscular Hemoglobin 25.6 pg (28.0-32.0); Mean Corpuscular Hgb Conc. 33.2 g/dL (32.0-36.0); Mean Corpuscular Volume 77.2 fL (80.0-100.0); Monocytes # (auto) 0.7 10 ^3/uL (0-1.3); Monocytes % (auto) 12.2 % (0.0-12.0); Neutrophils # (auto) 2.8 10 ^3/uL (1.6-8.6); Neutrophils % (auto) 50.9 % (37.0-80.0); Nucleated Red Blood Cells % 0.1 %; Platelet Count (auto) 509 10^3/uL (140-450); Red Blood Cells 4.69 10^6/uL (4.0-5.20); Red Cell Distribution Width 18.4 % (11.8-14.3); White Blood Cell 5.6 10^3/uL (4.4-10.8)
[2025-04-08 05:55] LABS: Alanine Aminotransferase 10 U/L (7-40); Albumin 3.2 g/dL (3.2-4.8); Alkaline Phosphatase 80 U/L (46-116); Anion Gap 8 (5-15); Aspartate Aminotransferase 19 U/L (13-40); Blood Urea Nitrogen 17 mg/dL (9-23); Calcium 9.2 mg/dL (8.7-10.4); Carbon Dioxide 27 mmol/L (20-31); Chloride 106 mmol/L (98-107); Glucose 81 mg/dL (74-106); Potassium 3.8 mmol/L (3.5-5.1); Sodium 141 mmol/L (136-145); Total Protein 5.8 g/dL (5.7-8.2)
[2025-04-08 05:56] LABS: Bilirubin, Total 0.3 mg/dL (0.2-1.0)
[2025-04-08] MEDS: AZITHROMYCIN 500MG/ 250ML 250 ML IV SCH (09:52)
--- NOTE | 2025-04-08 13:19 | DVHPN2 ---
Reviewed: Care Plan, H&P, Labs, Medications, Previous Orders, Radiology Changes from previous H/P or p: No Changes Eyes: No Pain, No Vision change, No Conjunctivae inflammation, No Eyelid inflammation, No Other, No Redness ENT: No Ear pain, No Ear discharge, No Nose pain, No Nose discharge, No Nose congestion, No Mouth pain, No Mouth swelling, No Throat pain, No Throat swelling, No Other Cardiovascular: No Chest Pain, No Palpitations, No Orthopnea, No Paroxysmal Noc. Dyspnea, No Edema, No Lt Headedness, No Other Respiratory: No Cough, No Dry; Shortness of breath; No SOB with excertion, No Wheezing, No Hemoptysis, No Pleuritic Pain, No Sputum, No Other Gastrointestinal: No Nausea, No Vomiting, No Abdominal Pain, No Diarrhea, No Constipation, No Melena, No Hematochezia, No Other Genitourinary: No Dysuria, No Frequency, No Incontinence, No Hematuria, No Retention; Other (Giron catheter in place) Musculoskeletal: No other, No neck pain, No shoulder pain, No arm pain, No back pain, No hand pain, No leg pain, No foot pain Skin: No Rash, No Lesions, No Jaundice, No Bruising, No Other Objective Vitals Vital Signs Date Time Temp Pulse Resp B/P (MAP) Pulse Ox O2 Delivery O2 Flow Rate FiO2 04/08/25 09:00 97.6 99 14 141/67 (91) 97 97.6 04/07/25 20:19 Nasal Cannula* 3 32 Intake/Output Intake and Output 04/08/25 07:00 Intake Total 1540 ml Output Total 600 ml Balance 940 ml Intake Oral 340 ml Blood Product 1200 ml Output Urine Total 600 ml Medications Current Medications Medications Dose Ordered Sig/Adore Route Start Time Stop Time Status Last Admin Dose Admin Celecoxib 100 mg Q12HR PO 04/07/25 10:00 04/08/25 09:54 100 MG Duloxetine HCl 60 mg DAILY PO 04/07/25 10:00 04/08/25 09:53 60 MG Mirtazapine 30 mg HS PO 04/07/25 22:00 04/07/25 21:06 30 MG Oxybutynin Chloride 5 mg Q8HR PO 04/07/25 14:00 04/08/25 05:14 5 MG Azithromycin 250 ml @ 125 mls/hr DAILY IV 04/08/25 10:00 04/08/25 09:52 125 MLS/HR Diagnostic Test (Pha) 1 strip ACHS 04/07/25 11:30 04/08/25 11:30 1 STRIP Insulin Human Regular ACHS SC 04/07/25 11:30 Dextrose 50 ml UD PRN IV 04/07/25 09:00 Sodium Chloride 10 ml Q8HR IV 04/07/25 14:00 04/08/25 05:13 10 ML Acetaminophen/ Hydrocodone Bitart 1 tab Q4HP PRN PO 04/07/25 09:00 04/08/25 09:53 1 TAB Ondansetron HCl 4 mg Q4HP PRN IV 04/07/25 09:00 Docusate Sodium 100 mg BIDPRN PRN PO 04/07/25 09:00 Acetaminophen 650 mg Q6HP PRN PO 04/07/25 09:00 Morphine Sulfate 2 mg Q4HPRN PRN IV 04/07/25 10:00 Nitroglycerin 0.4 mg Q5MINP PRN SL 04/07/25 09:45 Morphine Sulfate 2 mg Q30M PRN IV 04/07/25 10:00 Laboratory Results Laboratory Tests 04/08/25 05:21 Chemistry Test 04/08/25 05:21 Albumin 3.2 g/dL (3.2-4.8) Calcium Level 9.2 mg/dL (8.7-10.4) Total Protein 5.8 g/dL (5.7-8.2) LFT Test 04/08/25 05:21 Alanine Aminotransferase (ALT) 10 U/L (7-40) Alkaline Phosphatase 80 U/L (46-116) Aspartate Amino Transferase (AST) 19 U/L (13-40) Total Bilirubin 0.3 mg/dL (0.2-1.0) Microbiology Microbiology Date/Time Source Procedure Growth Status 04/07/25 19:45 Sacrum Gram Stain - Final Resulted 04/07/25 19:45 Sacrum Wound Culture - Preliminary Resulted Labs and/or images reviewed: Labs reviewed by me, Image(s) reviewed by me Assessment/Plan Assessment/Plan Acute on chronic anemia hemoglobin 7.2 improved to 12.0 after 2 units RBC t ransfusion Right femoral subtrochanteric pathologic fracture Extensive sacral wounds, infected Sepsis due to above DM2 Bilateral ovarian cysts Constipation paraplegia anasarca severe protein calorie malnutrition Patient came from [facility] under the care of Dr. Butler Plan discussed with: Patient Date of Service: Apr 08, 2025 Billing Provider: KENRICK DE LA ROSA MD Common Visit Codes: [id number] CARE 30-74 MIN KENRICK DE LA ROSA MD Apr 08, 2025 13:19
[2025-04-08] MEDS: metFORMIN HYDROCHLORIDE 850 MG TAB PO SCH (17:50)
[2025-04-08] MEDS: NIFEdipine ER 30 MG TAB PO ONE (17:50)
[2025-04-08] MEDS: POLYETHYLENE GLYCOL 17 GM PWDR PO ONE (17:50)
--- NOTE | 2025-04-08 20:50 | DVHINCON2 ---
Date of service: Apr 08, [address] Aubrey Trinidad Reason for Consultation Anemia History of Present Illness The patient is a 69-year-old female paraplegic with past medical history of right femoral fracture, ovarian cysts, hypertension, and diabetes mellitus presented to [facility] ED for evaluation of abnormal labs. As reported by daughter, patient is currently staying at [facility] and was found to have a "critically low" hemoglobin after blood work this morning. Daughter relays that the patient was sent to the ED for blood transfusion. Daughter states that the patient has multiple wounds to her back and pain due to the wounds, requiring wound care around the clock along with pain control with [place] 5/325mg. Patient's hemoglobin was 7.2 on admission. She received 2 units PRBC and repeat hemoglobin this morning is 12. Patient denied any active GI bleeding but her price changer at bedside stated that the patient may have had some dark stools. She denies use of aspirin NSAIDs and blood thinners because of history of ruptured AVM. She has not had any recent endoscopy and colonoscopy. Past Medical History Past Medical History DM, Hypertension, Right femoral fracture, Paraplegic, Ovarian Cysts;Spinal cord injury Past Surgical History Right femoral fracture Family History: Diabetes mellitus G8 MOTHER G8 FATHER Hypertension G8 MOTHER G8 FATHER Allergies: Uncoded Allergies: BLOOD THINNERS (Adverse Reaction, Severe, 03/16/19) Home Meds Reported Medications Iron Glycinate (Iron) 18 Mg/15 Ml Liq, 18 MG PO, LIQ 04/07/25 Ascorbic Acid (VITAMIN C) 500 Mg Cap, 500 MG PO, CAP 04/07/25 Cholecalciferol (VITAMIN D3) 5,000 Unit Tab, 5000 UNIT PO DAILY, TAB 03/16/19 Metformin Hydrochloride (Metformin Hcl) 500 Mg Tab, 500 MG PO DAILY for 30 Days, MG 03/16/19 Mirtazapine (REMERON) 30 Mg Tab, 1 TAB PO HS, #30 TAB 1 Refill 03/16/19 Celecoxib (Celebrex) 200 Mg Cap, 1 CAP PO BID, #30 CAP 2 Refills 03/16/19 Duloxetine Hcl (Cymbalta) 60 Mg Cap, 1 CAP PO DAILY, #90 CAP 3 Refills 03/16/19 Tizanidine Hydrochloride (Zanaflex) 4 Mg Cap, 1 CAP PO HS, #30 CAP 03/16/19 Oxybutynin Chloride (Ditropan Xl) 5 Mg Tab, 5 MG PO TID for 30 Days, MG 03/16/19 Discontinued Reported Medications Sulfamethoxazole W/Trimethopri (Trimethoprim/Sulfamethoxa) 1 Tab Tab, 1 TAB PO HS, #14 TAB 03/16/19 Diazepam (Valium) 10 Mg Tab, 1 TAB PO PRN, #30 TAB 03/16/19 Tramadol Hcl (Tramadol Hcl) 50 Mg Tab, 2 TAB PO Q6HP PRN for MODERATE PAIN, MG 03/16/19 Current Medications Current Medications Medications (Trade) Dose Ordered Sig/Adore Route PRN Reason Start Time Stop Time Status Last Admin Mirtazapine (Remeron Tablet) 30 mg HS PO 04/07/25 22:00 04/07/25 21:06 Azithromycin 250 ml @ 125 mls/hr DAILY IV 04/08/25 10:00 04/08/25 09:52 Metformin HCl (Glucophage) 850 mg BIDWM PO 04/08/25 18:00 04/08/25 17:50 Nifedipine (Procardia Xl (Time-Release)) 90 mg DAILY PO 04/09/25 10:00 Vital Signs Vital Signs Date Time Temp Pulse Resp B/P (MAP) Pulse Ox O2 Delivery O2 Flow Rate FiO2 04/08/25 20:00 Nasal Cannula* 3 32 04/08/25 17:50 166/79 04/08/25 17:00 98.0 105 14 99 98.0 Physical Exam General Appearance: Alert, Oriented X3, Cooperative, No acute distress HEENT: Atraumatic, PERRLA, EOMI, Mucous membr. moist/pink Respiratory: Clear to auscultation, Normal air movement Cardiovascular: Regular rate, Normal S1, Normal S2, No murmurs Abdominal: Normal bowel sounds, Soft, No tenderness, No hepatospenomegaly, No masses Extremities: No clubbing, No edema, Normal pulses, Other (Paraplegic) Labs/Diagnostic Data Labs Test 04/08/25 05:21 04/07/25 11:09 Range/Units White Blood Count 5.6 4.4-10.8 10^3/uL Red Blood Count 4.69 4.0-5.20 10^6/uL Hemoglobin 12.0 #L 12.2-16.2 g/dL Hematocrit 36.2 # 36.0-46.0 % Mean Corpuscular Volume 77.2 #L 80.0-100.0 fL Mean Corpuscular Hemoglobin 25.6 L 28.0-32.0 pg Mean Corpuscular Hemoglobin Concent 33.2 32.0-36.0 g/dL Red Cell Distribution Width 18.4 H 11.8-14.3 % Platelet Count 509 H 140-450 10^3/uL Mean Platelet Volume 7.1 6.9-10.8 fL Neutrophils (%) (Auto) 50.9 37.0-80.0 % Lymphocytes (%) (Auto) 25.3 10.0-50.0 % Monocytes (%) (Auto) 12.2 H 0.0-12.0 % Eosinophils (%) (Auto) 10.8 H 0.0-7.0 % Basophils (%) (Auto) 0.8 0.0-2.0 % Neutrophils # (Auto) 2.8 1.6-8.6 10 ^3/uL Lymphocytes # (Auto) 1.4 0.4-5.4 10 ^3/uL Monocytes # (Auto) 0.7 0-1.3 10 ^3/uL Eosinophils # (Auto) 0.6 0-0.8 10 ^3/uL Basophils # (Auto) 0 0-0.2 10 ^3/uL Nucleated Red Blood Cells 0.1 % Sodium Level 141 136-145 mmol/L Potassium Level 3.8 3.5-5.1 mmol/L Chloride Level 106 98-107 mmol/L Carbon Dioxide Level 27 20-31 mmol/L Anion Gap 8 5-15 Blood Urea Nitrogen 17 9-23 mg/dL Creatinine 0.46 L 0.550-1.02 mg/dL Glomerular Filtration Rate Calc 103 >90 mL/min BUN/Creatinine Ratio 37.0 H 10.0-20.0 Serum Glucose 81 74-106 mg/dL Calcium Level 9.2 8.7-10.4 mg/dL Total Bilirubin 0.3 0.2-1.0 mg/dL Aspartate Amino Transferase (AST) 19 13-40 U/L Alanine Aminotransferase (ALT) 10 7-40 U/L Alkaline Phosphatase 80 46-116 U/L Total Protein 5.8 5.7-8.2 g/dL Albumin 3.2 3.2-4.8 g/dL POC Glucose 113 H 70-106 mg/dl Microbiology Date/Time Source Procedure Growth Status 04/07/25 19:45 Hip Gram Stain - Final Resulted 04/07/25 19:45 Hip Wound Culture - Preliminary Resulted CXR IMPRESSION: 1. Bibasilar atelectasis or pneumonia. 2. Status post right-sided PICC line with the distal tip in the proximal SVC. No pneumothorax. Problems(with codes): (1) Generalized weakness (2) Symptomatic anemia (3) Wound of back Plan/Recommendation Plan Protonix 40 mg IV daily Monitor serial labs and transfuse if hemoglobin is less than seven Patient will be kept NPO after midnight for possible endoscopy in a.m. Patient does not want a colonoscopy because of her paraplegia and wounds in her back at this time Check stool for occult blood, vitamin B12, serum folate, iron panel I will follow up patient with you closely Plan discussed with: Patient, Other (Inclusion Special Education Teacher) ABHINAV GUNN MD Apr 08, 2025 20:49
[2025-04-09] VITALS (9 sets, daily range): BP systolic 131–157; BP diastolic 66–84; PULSE 84–109; RESP 15–19; TEMP 97.6–98.2; O2SAT 96–100
[2025-04-09 07:12] LABS: Basophils # (auto) 0.1 10 ^3/uL (0-0.2); Basophils % (auto) 0.7 % (0.0-2.0); Eosinophils # (auto) 0.8 10 ^3/uL (0-0.8); Eosinophils % (auto) 10.1 % (0.0-7.0); Hematocrit 31.7 % (36.0-46.0); Hemoglobin 10.8 g/dL (12.2-16.2); Lymphocytes # (auto) 1.5 10 ^3/uL (0.4-5.4); Lymphocytes % (auto) 19.2 % (10.0-50.0); Mean Corpuscular Hemoglobin 26.1 pg (28.0-32.0); Mean Corpuscular Hgb Conc. 33.9 g/dL (32.0-36.0); Mean Corpuscular Volume 76.9 fL (80.0-100.0); Monocytes # (auto) 0.9 10 ^3/uL (0-1.3); Neutrophils # (auto) 4.6 10 ^3/uL (1.6-8.6); Platelet Count (auto) 451 10^3/uL (140-450); Red Blood Cells 4.12 10^6/uL (4.0-5.20); Red Cell Distribution Width 18.2 % (11.8-14.3); White Blood Cell 7.8 10^3/uL (4.4-10.8)
[2025-04-09] MEDS: MORPHINE SULFATE 4 MG/ML SYR/VIAL IV PRN (08:22)
--- NOTE | 2025-04-09 10:01 | DVHPN2 ---
Reviewed: Care Plan, H&P, Labs, Medications, Previous Orders, Radiology Changes from previous H/P or p: No Changes Eyes: No Pain, No Vision change, No Conjunctivae inflammation, No Eyelid inflammation, No Other, No Redness ENT: No Ear pain, No Ear discharge, No Nose pain, No Nose discharge, No Nose congestion, No Mouth pain, No Mouth swelling, No Throat pain, No Throat swelling, No Other Cardiovascular: No Chest Pain, No Palpitations, No Orthopnea, No Paroxysmal Noc. Dyspnea, No Edema, No Lt Headedness, No Other Respiratory: No Cough, No Dry; Shortness of breath; No SOB with excertion, No Wheezing, No Hemoptysis, No Pleuritic Pain, No Sputum, No Other Gastrointestinal: No Nausea, No Vomiting, No Abdominal Pain, No Diarrhea, No Constipation, No Melena, No Hematochezia, No Other Genitourinary: No Dysuria, No Frequency, No Incontinence, No Hematuria, No Retention; Other (Giron catheter in place) Musculoskeletal: No other, No neck pain, No shoulder pain, No arm pain, No back pain, No hand pain, No leg pain, No foot pain Skin: No Rash, No Lesions, No Jaundice, No Bruising, No Other Objective Vitals Vital Signs Date Time Temp Pulse Resp B/P (MAP) Pulse Ox O2 Delivery O2 Flow Rate FiO2 04/09/25 08:22 85 16 157/72 04/09/25 04:55 97.9 99 97.9 04/08/25 20:00 Nasal Cannula* 3 32 Intake/Output Intake and Output 04/09/25 07:00 Intake Total 550 ml Output Total 1450 ml Balance -900 ml Intake Oral 300 ml IV Total 250 ml Output Urine Total 1450 ml Medications Current Medications Medications Dose Ordered Sig/Adore Route Start Time Stop Time Status Last Admin Dose Admin Celecoxib 100 mg Q12HR PO 04/07/25 10:00 04/08/25 21:51 100 MG Duloxetine HCl 60 mg DAILY PO 04/07/25 10:00 04/08/25 09:53 60 MG Mirtazapine 30 mg HS PO 04/07/25 22:00 04/08/25 21:51 30 MG Oxybutynin Chloride 5 mg Q8HR PO 04/07/25 14:00 04/08/25 21:51 5 MG Azithromycin 250 ml @ 125 mls/hr DAILY IV 04/08/25 10:00 04/08/25 09:52 125 MLS/HR Diagnostic Test (Pha) 1 strip ACHS 04/07/25 11:30 04/08/25 21:51 1 STRIP Insulin Human Regular ACHS SC 04/07/25 11:30 Dextrose 50 ml UD PRN IV 04/07/25 09:00 Sodium Chloride 10 ml Q8HR IV 04/07/25 14:00 04/09/25 05:28 10 ML Acetaminophen/ Hydrocodone Bitart 1 tab Q4HP PRN PO 04/07/25 09:00 04/08/25 23:40 1 TAB Ondansetron HCl 4 mg Q4HP PRN IV 04/07/25 09:00 Docusate Sodium 100 mg BIDPRN PRN PO 04/07/25 09:00 Acetaminophen 650 mg Q6HP PRN PO 04/07/25 09:00 Morphine Sulfate 2 mg Q4HPRN PRN IV 04/07/25 10:00 04/09/25 08:22 2 MG Nitroglycerin 0.4 mg Q5MINP PRN SL 04/07/25 09:45 Morphine Sulfate 2 mg Q30M PRN IV 04/07/25 10:00 Metformin HCl 850 mg BIDWM PO 04/08/25 18:00 04/08/25 17:50 850 MG Nifedipine 90 mg DAILY PO 04/09/25 10:00 Laboratory Results Laboratory Tests 04/08/25 05:21 04/09/25 06:08 Microbiology Microbiology Date/Time Source Procedure Growth Status 04/07/25 19:45 Hip Gram Stain - Final Resulted 04/07/25 19:45 Hip Wound Culture - Preliminary Resulted Labs and/or images reviewed: Labs reviewed by me, Image(s) reviewed by me Assessment/Plan Assessment/Plan Acute on chronic anemia hemoglobin 7.2 improved to 12.0 after 2 units RBC t ransfusion GI consult by Dr. Mary Cronin appreciated, patient getting EGD today Right femoral subtrochanteric pathologic fracture Extensive sacral wounds, infected Sepsis due to above DM2 Bilateral ovarian cysts Constipation paraplegia anasarca severe protein calorie malnutrition Patient came from [facility] under the care of Dr. Butler Plan discussed with: Patient My Orders Orders - KENRICK DE LA ROSA MD Procedure Category Date Status Time * Gi Dvh Causticiser CONS 04/08/25 Transmitted 13:35 Metformin PHA 04/08/25 In Process Hydrochloride 18:00 Apply Barrier Cream GLENDA 04/08/25 In Process 11:13 Date of Service: Apr 09, 2025 Billing Provider: KENRICK DE LA ROSA MD Common Visit Codes: [id number] INP/OBS CARE(HIGH) KENRICK DE LA ROSA MD Apr 09, 2025 10:01
[2025-04-09] MEDS ORDERED: MIDAZOLAM HCL 2MG/2ML 2ml VIAL (1mg/ml) ONE (10:02)
[2025-04-09] MEDS ORDERED: fentaNYL CITRATE 100 MCG/2 ML VL ONE (10:02)
[2025-04-09] MEDS: LIDOCAINE VISCOUS 2% 15ML UD ONE (10:04)
[2025-04-09] MEDS ORDERED: DexAMETHasone SOD PHOS 10MG/1ML VIAL INJ ONE (10:22)
[2025-04-09] MEDS ORDERED: PROPOFOL 10 MG/ML 20 ML IV ONE (10:22)
--- NOTE | 2025-04-09 10:29 | DVHOP2 ---
Operative Report DATE OF OPERATION: 04/09/25 PROCEDURE: Upper Endoscopy with biopsy. PREOPERATIVE INDICATION: The patient is a 69 -year-old female undergoing endoscopy for anemia POSTOPERATIVE DIAGNOSES: 1. Mild antral gastritis with some hyperemia erythema 2. 5 mm extension of columnar epithelium into the distal esophagus with minimal grade a erosive esophagitis 3. Otherwise normal examination up to the 2nd and 3rd part of the duodenal with no active bleeding or ulceration PROCEDURE PERFORMED BY: Abhinav Cronin GI NURSE: Mervat SCOPE: Olympus videoendoscope. ASA CLASS: 2 PREOPERATIVE MEDICATIONS: Dr. Una El PROCEDURE IN DETAIL: After obtaining an informed consent, the patient was placed on left lateral decubitus position. The patient was then sedated with the above medications. A bite block was placed between her teeth. The endoscope was then passed through the oropharynx, into the esophagus, and through the stomach and pylorus up to the second and third part of the duodenum. The endoscope was then withdrawn. The 2nd and 3rd part of the duodenum and the duodenal bulb were normal. Duodenal biopsies were obtained. The pre-pyloric area antrum and distal body showed mild gastritis with hyperemia erythema. Gastric biopsies were obtained. On retroflexion the fundus cardia and angularis were normal. There was no fresh or old blood in the upper GI tract. The endoscope was then withdrawn into the distal esophagus where the patient had a 0.5 cm hiatal hernia with minimal grade a erosive esophagitis GE junction biopsies were obtained. The remaining distal and proximal esophagus and oropharynx were unremarkable. The patient tolerated the procedure well without difficulty. COMPLICATIONS : None SPECIMENS: Biopsies Gastric biopsies GE junction biopsies DISPOSITION: Transfer back to the floor Stable PLAN: 1. Await for biopsy result 2. Will place pt on Protonix 40 mg p.o. daily 3. Resume GI soft diet advance as tolerated 4. Arrange colonoscopy to complete anemia workup, if discharge this can be done as an outpatient ABHINAV CRONIN MD Apr 09, 2025 10:29
[2025-04-09] MEDS: NIFEdipine ER 30 MG TAB PO SCH (12:55)
[2025-04-09] MEDS: OMNIPAQUE 12mg/ml 500ml ORAL SOLUTION PO ONE (13:21)
--- NOTE | 2025-04-09 19:00 | DVH ---
Exam: CT CT AB PEL WITH ORAL CON ONLY History: ANEMIA Comparison Study: CT CT AB PEL WITH IV CON ONLY on DOS: 02/11/25 Technique: Multidetector CT of the abdomen and pelvis with oral contrast only. Axial, coronal and sag ittal multiplanar reformats were performed by the technologist on a separate workstation. Radiation Dose Information: CT Dose: CTDI volume is 5.14 mGy. Dose-length product is 264.5 mGy*cm Findings: Moderate bilateral pleural effusions with associated atelectasis. Partially visualized heart is moreno l in size. Small to moderate pericardial effusion. Liver, spleen, pancreas and adrenal glands unremarkable. [id number] distention of the gallbladd er with no evidence of cholelithiasis or acute cholecystitis. 2 cm right renal upper pole cyst. Punctate nonobstructing left renal calculi. [place] nephrosis bilater ally. Bilateral ureters unremarkable. Urinary bladder is decompressed with Giron catheter in place. Foci of air within the urinary bladder which is most likely iatrogenic. 6.1 x 7.6 cm cystic structure within the left hemipelvis with 6.1 x 6.3 cm cystic structure within the right hemipelvis. Oral contrast is noted within the stomach which demonstrates mild wall thickening. Oral contrast is n oted within the small bowel loops with mild borderline distention of the proximal small bowel segment up to 3 cm. Appendix is not definitely visualized. Contrast is noted within the ascending colon. Lar ge amount of fecal material within the colon. Sigmoid diverticulosis without diverticulitis. No evidence of intraperitoneal free air. Diffuse mesenteric edema/trace ascites. Heavy atherosclerotic calcification of the aorta and bilateral iliacs. Left-sided saccular aneurysmal dilatation of the infrarenal aorta measuring up to 2.3 cm. Limited evaluation for lymphadenopathy. Diffuse anasarca. Diffuse demineralization. Sclerotic focus of the left pelvic bone with represent a bone island with a blastic lesion not excluded. Old fracture deformity of left posterior 12th and 11 th ribs. There is fragmentation /erosive changes of the coccyx and S5. Subtrochanteric comminuted fr acture of the right femur with superior displacement of the distal fragment. There appears to be a sk in defect over the posterior right proximal thigh with gas extending from the defect to the area of f racture. There appears to be right-sided sacral decubitus ulcer extending to the right S5 IMPRESSION: Limited noncontrast imaging. Constipation. Gastric wall thickening which may be due to inadequate distention/gastritis. Contrast is noted within the stomach, small bowel loops and ascending colon with borderline distentio n of proximal segmental small bowel up to 3 cm which may be due to ileus. Large bilateral ovarian cysts are noted. Moderate body wall edema. Mild mesenteric edema. Moderate bilateral pleural effusions with associated atelectasis. Sacral decubitus ulcer which appears to extend to the sacrum with erosive changes of the sacrum and c occyx. Correlate for osteomyelitis. Redemonstration of right-sided sub trochanteric comminuted femoral fracture with associated posterior wound and gas extending from the wound to the area of the fracture. Previously noted abscess appears to have been drained in the interim. Additional findings as above.
[2025-04-10] VITALS (8 sets, daily range): BP systolic 123–152; BP diastolic 68–79; PULSE 79–103; RESP 14–19; TEMP 97.6–98.3; O2SAT 93–100
[2025-04-10 05:39] LABS: Basophils # (auto) 0 10 ^3/uL (0-0.2); Basophils % (auto) 0.4 % (0.0-2.0); Eosinophils # (auto) 0.1 10 ^3/uL (0-0.8); Eosinophils % (auto) 0.7 % (0.0-7.0); Hematocrit 34.1 % (36.0-46.0); Hemoglobin 11.3 g/dL (12.2-16.2); Lymphocytes # (auto) 1.5 10 ^3/uL (0.4-5.4); Lymphocytes % (auto) 19.5 % (10.0-50.0); Mean Corpuscular Hemoglobin 25.2 pg (28.0-32.0); Mean Corpuscular Volume 76.4 fL (80.0-100.0); Monocytes # (auto) 0.9 10 ^3/uL (0-1.3); Monocytes % (auto) 11.9 % (0.0-12.0); Neutrophils # (auto) 5.3 10 ^3/uL (1.6-8.6); Neutrophils % (auto) 67.5 % (37.0-80.0); Nucleated Red Blood Cells % 0.1 %; Platelet Count (auto) 457 10^3/uL (140-450); Red Blood Cells 4.47 10^6/uL (4.0-5.20); Red Cell Distribution Width 18.3 % (11.8-14.3); White Blood Cell 7.8 10^3/uL (4.4-10.8)
[2025-04-10 05:44] LABS: Chloride 106 mmol/L (98-107); Potassium 3.7 mmol/L (3.5-5.1); Sodium 143 mmol/L (136-145)
[2025-04-10 05:45] LABS: Anion Gap 11 (5-15); Calcium 10.1 mg/dL (8.7-10.4); Carbon Dioxide 26 mmol/L (20-31)
[2025-04-10 05:50] LABS: BUN/Creatinine Ratio 29.3 (10.0-20.0); Blood Urea Nitrogen 12 mg/dL (9-23); Glucose 92 mg/dL (74-106)
--- NOTE | 2025-04-10 09:37 | DVHPN2 ---
Reviewed: Care Plan, H&P, Labs, Medications, Previous Orders, Radiology Changes from previous H/P or p: No Changes Eyes: No Pain, No Vision change, No Conjunctivae inflammation, No Eyelid inflammation, No Other, No Redness ENT: No Ear pain, No Ear discharge, No Nose pain, No Nose discharge, No Nose congestion, No Mouth pain, No Mouth swelling, No Throat pain, No Throat swelling, No Other Cardiovascular: No Chest Pain, No Palpitations, No Orthopnea, No Paroxysmal Noc. Dyspnea, No Edema, No Lt Headedness, No Other Respiratory: No Cough, No Dry; Shortness of breath; No SOB with excertion, No Wheezing, No Hemoptysis, No Pleuritic Pain, No Sputum, No Other Gastrointestinal: No Nausea, No Vomiting, No Abdominal Pain, No Diarrhea, No Constipation, No Melena, No Hematochezia, No Other Genitourinary: No Dysuria, No Frequency, No Incontinence, No Hematuria, No Retention; Other (Giron catheter in place) Musculoskeletal: No other, No neck pain, No shoulder pain, No arm pain, No back pain, No hand pain, No leg pain, No foot pain Skin: No Rash, No Lesions, No Jaundice, No Bruising, No Other Objective Vitals Vital Signs Date Time Temp Pulse Resp B/P (MAP) Pulse Ox O2 Delivery O2 Flow Rate FiO2 04/10/25 09:00 97.7 103 14 142/68 (92) 97 97.7 04/10/25 08:00 Nasal Cannula* 3 32 Intake/Output Intake and Output 04/10/25 07:00 Intake Total 815 ml Output Total 2150 ml Balance -1335 ml Intake Oral 540 ml IV Total 275 ml Output Urine Total 2150 ml Medications Current Medications Medications Dose Ordered Sig/Adore Route Start Time Stop Time Status Last Admin Dose Admin Celecoxib 100 mg Q12HR PO 04/07/25 10:00 04/09/25 21:42 100 MG Duloxetine HCl 60 mg DAILY PO 04/07/25 10:00 04/09/25 12:55 60 MG Mirtazapine 30 mg HS PO 04/07/25 22:00 04/09/25 21:42 30 MG Oxybutynin Chloride 5 mg Q8HR PO 04/07/25 14:00 04/09/25 17:18 5 MG Azithromycin 250 ml @ 125 mls/hr DAILY IV 6/12/25 10:00 04/09/25 12:54 125 MLS/HR Diagnostic Test (Pha) 1 strip ACHS 04/07/25 11:30 04/09/25 11:52 1 STRIP Insulin Human Regular ACHS SC 04/07/25 11:30 Dextrose 50 ml UD PRN IV 04/07/25 09:00 Sodium Chloride 10 ml Q8HR IV 04/07/25 14:00 04/10/25 05:58 10 ML Acetaminophen/ Hydrocodone Bitart 1 tab Q4HP PRN PO 04/07/25 09:00 04/08/25 23:40 1 TAB Ondansetron HCl 4 mg Q4HP PRN IV 04/07/25 09:00 Docusate Sodium 100 mg BIDPRN PRN PO 04/07/25 09:00 Acetaminophen 650 mg Q6HP PRN PO 04/07/25 09:00 Morphine Sulfate 2 mg Q4HPRN PRN IV 04/07/25 10:00 04/10/25 05:43 2 MG Nitroglycerin 0.4 mg Q5MINP PRN SL 04/07/25 09:45 Morphine Sulfate 2 mg Q30M PRN IV 04/07/25 10:00 Metformin HCl 850 mg BIDWM PO 04/08/25 18:00 04/08/25 17:50 850 MG Nifedipine 90 mg DAILY PO 04/09/25 10:00 04/09/25 12:55 90 MG Laboratory Results Laboratory Tests 04/10/25 05:18 Chemistry Test 04/10/25 05:18 Calcium Level 10.1 mg/dL (8.7-10.4) Microbiology Microbiology Date/Time Source Procedure Growth Status 04/07/25 19:45 Hip Gram Stain - Final Resulted 04/07/25 19:45 Hip Wound Culture - Preliminary Resulted Labs and/or images reviewed: Labs reviewed by me, Image(s) reviewed by me Assessment/Plan Assessment/Plan Acute on chronic anemia hemoglobin 7.2 improved to 12.0 after 2 units RBC t ransfusion GI consult by Dr. Mary Cronin appreciated, Mild Gastritis and grade a erosive esophagitis by EGD by Dr. Mary Cronin 04-09-25 Right femoral subtrochanteric pathologic fracture Extensive sacral wounds, infected Sepsis due to above DM2 Bilateral ovarian cysts Constipation paraplegia anasarca severe protein calorie malnutrition Patient came from [place] [facility] acute under the care of Dr. Butler Awaiting wound culture report Plan discussed with: Patient Date of Service: Apr 10, 2025 Billing Provider: KENRICK DE LA ROSA MD Common Visit Codes: [id number] INP/OBS CARE(HIGH) KENRICK DE LA ROSA MD Apr 10, 2025 09:36
[2025-04-10] MEDS: traZODone HCL 50 MG TAB PO SCH (21:48)
[2025-04-11] VITALS (8 sets, daily range): BP systolic 118–164; BP diastolic 61–88; PULSE 86–119; RESP 14–18; TEMP 97.5–99.3; O2SAT 97–100
[2025-04-11] MEDS: DOCUSATE SOD 100 MG CAP PO PRN (09:21)
--- NOTE | 2025-04-11 10:00 | DVHPN2 ---
Reviewed: Care Plan, H&P, Labs, Medications, Previous Orders, Radiology Changes from previous H/P or p: No Changes Eyes: No Pain, No Vision change, No Conjunctivae inflammation, No Eyelid inflammation, No Other, No Redness ENT: No Ear pain, No Ear discharge, No Nose pain, No Nose discharge, No Nose congestion, No Mouth pain, No Mouth swelling, No Throat pain, No Throat swelling, No Other Cardiovascular: No Chest Pain, No Palpitations, No Orthopnea, No Paroxysmal Noc. Dyspnea, No Edema, No Lt Headedness, No Other Respiratory: No Cough, No Dry; Shortness of breath; No SOB with excertion, No Wheezing, No Hemoptysis, No Pleuritic Pain, No Sputum, No Other Gastrointestinal: No Nausea, No Vomiting, No Abdominal Pain, No Diarrhea, No Constipation, No Melena, No Hematochezia, No Other Genitourinary: No Dysuria, No Frequency, No Incontinence, No Hematuria, No Retention; Other (Giron catheter in place) Musculoskeletal: No other, No neck pain, No shoulder pain, No arm pain, No back pain, No hand pain, No leg pain, No foot pain Skin: No Rash, No Lesions, No Jaundice, No Bruising, No Other Objective Vitals Vital Signs Date Time Temp Pulse Resp B/P (MAP) Pulse Ox O2 Delivery O2 Flow Rate FiO2 04/11/25 09:21 163/84 04/11/25 08:46 98.4 103 14 100 98.4 04/11/25 07:30 Nasal Cannula* 3 32 Intake/Output Intake and Output 04/11/25 07:00 Intake Total 1190 ml Output Total 1795 ml Balance -605 ml Intake Oral 940 ml IV Total 250 ml Output Urine Total 1795 ml Medications Current Medications Medications Dose Ordered Sig/Adore Route Start Time Stop Time Status Last Admin Dose Admin Celecoxib 100 mg Q12HR PO 04/07/25 10:00 04/11/25 09:21 100 MG Duloxetine HCl 60 mg DAILY PO 04/07/25 10:00 04/11/25 09:21 60 MG Mirtazapine 30 mg HS PO 04/07/25 22:00 04/10/25 21:48 30 MG Oxybutynin Chloride 5 mg Q8HR PO 04/07/25 14:00 04/09/25 17:18 5 MG Azithromycin 250 ml @ 125 mls/hr DAILY IV 04/08/25 10:00 04/11/25 09:22 125 MLS/HR Diagnostic Test (Pha) 1 strip ACHS 04/07/25 11:30 04/11/25 06:01 1 STRIP Insulin Human Regular ACHS SC 04/07/25 11:30 Dextrose 50 ml UD PRN IV 04/07/25 09:00 Sodium Chloride 10 ml Q8HR IV 04/07/25 14:00 04/11/25 05:21 10 ML Acetaminophen/ Hydrocodone Bitart 1 tab Q4HP PRN PO 04/07/25 09:00 04/11/25 09:22 1 TAB Ondansetron HCl 4 mg Q4HP PRN IV 04/07/25 09:00 Docusate Sodium 100 mg BIDPRN PRN PO 04/07/25 09:00 04/11/25 09:21 100 MG Acetaminophen 650 mg Q6HP PRN PO 04/07/25 09:00 Morphine Sulfate 2 mg Q4HPRN PRN IV 04/07/25 10:00 04/10/25 09:50 2 MG Nitroglycerin 0.4 mg Q5MINP PRN SL 04/07/25 09:45 Morphine Sulfate 2 mg Q30M PRN IV 04/07/25 10:00 Metformin HCl 850 mg BIDWM PO 04/08/25 18:00 04/11/25 09:22 850 MG Nifedipine 90 mg DAILY PO 04/09/25 10:00 04/11/25 09:21 90 MG Trazodone HCl 50 mg HS PO 04/10/25 22:00 04/10/25 21:48 50 MG Laboratory Results Laboratory Tests 04/10/25 05:18 Microbiology Microbiology Date/Time Source Procedure Growth Status 04/07/25 19:45 Hip Gram Stain - Final Resulted 04/07/25 19:45 Hip Wound Culture - Preliminary Resulted Labs and/or images reviewed: Labs reviewed by me, Image(s) reviewed by me Assessment/Plan Assessment/Plan Acute on chronic anemia hemoglobin 7.2 improved to 12.0 after 2 units RBC t ransfusion GI consult by Dr. Mary Cronin appreciated, Mild Gastritis and grade a erosive esophagitis by EGD by Dr. Mary Cronin 04-09-25 Right femoral subtrochanteric pathologic fracture Extensive sacral wounds, infected Sepsis due to above DM2 Bilateral ovarian cysts Constipation paraplegia anasarca severe protein calorie malnutrition Patient came from [place] [facility] acute under the care of Dr. Butler Wound cultures pending Plan discussed with: Patient, Spouse My Orders Orders - KENRICK DE LA ROSA MD Procedure Category Date Status Time Trazodone Hcl PHA 04/10/25 In Process ([facility]) 22:00 Consistent DIET 04/10/25 Transmitted Carb([facility])Diabetes Lunch Date of Service: Apr 11, 2025 Billing Provider: KENRICK DE LA ROSA MD Common Visit Codes: [id number] INP/OBS CARE(HIGH) KENRICK DE LA ROSA MD Apr 11, 2025 10:00
[2025-04-12] VITALS (7 sets, daily range): BP systolic 135–162; BP diastolic 68–83; PULSE 80–101; RESP 6–17; TEMP 97.3–98.6; O2SAT 98–100
[2025-04-12 10:43] LABS: Carcinoembryonic Antigen 1.38 ng/mL (<=5.0)
[2025-04-12 10:44] LABS: Ferritin 304.7 ng/mL (10-291)
--- NOTE | 2025-04-12 10:44 | DVHPN2 ---
Reviewed: Care Plan, H&P, Labs, Medications, Previous Orders, Radiology Changes from previous H/P or p: No Changes Eyes: No Pain, No Vision change, No Conjunctivae inflammation, No Eyelid inflammation, No Other, No Redness ENT: No Ear pain, No Ear discharge, No Nose pain, No Nose discharge, No Nose congestion, No Mouth pain, No Mouth swelling, No Throat pain, No Throat swelling, No Other Cardiovascular: No Chest Pain, No Palpitations, No Orthopnea, No Paroxysmal Noc. Dyspnea, No Edema, No Lt Headedness, No Other Respiratory: No Cough, No Dry; Shortness of breath; No SOB with excertion, No Wheezing, No Hemoptysis, No Pleuritic Pain, No Sputum, No Other Gastrointestinal: No Nausea, No Vomiting, No Abdominal Pain, No Diarrhea, No Constipation, No Melena, No Hematochezia, No Other Genitourinary: No Dysuria, No Frequency, No Incontinence, No Hematuria, No Retention; Other (Giron catheter in place) Musculoskeletal: No other, No neck pain, No shoulder pain, No arm pain, No back pain, No hand pain, No leg pain, No foot pain Skin: No Rash, No Lesions, No Jaundice, No Bruising, No Other Objective Vitals Vital Signs Date Time Temp Pulse Resp B/P (MAP) Pulse Ox O2 Delivery O2 Flow Rate FiO2 04/12/25 09:18 162/83 04/12/25 09:00 98.3 101 17 100 98.3 04/12/25 08:00 Nasal Cannula* 3 32 Intake/Output Intake and Output 04/12/25 07:00 Intake Total 1425 ml Output Total 875 ml Balance 550 ml Intake Oral 1175 ml IV Total 250 ml Output Urine Total 875 ml Medications Current Medications Medications Dose Ordered Sig/Adore Route Start Time Stop Time Status Last Admin Dose Admin Celecoxib 100 mg Q12HR PO 04/07/25 10:00 04/12/25 09:18 100 MG Duloxetine HCl 60 mg DAILY PO 04/07/25 10:00 04/12/25 09:18 60 MG Mirtazapine 30 mg HS PO 04/07/25 22:00 04/11/25 21:56 30 MG Oxybutynin Chloride 5 mg Q8HR PO 04/07/25 14:00 04/09/25 17:18 5 MG Azithromycin 250 ml @ 125 mls/hr DAILY IV 04/08/25 10:00 04/12/25 09:15 125 MLS/HR Diagnostic Test (Pha) 1 strip ACHS 04/07/25 11:30 04/12/25 06:09 1 STRIP Insulin Human Regular ACHS SC 04/07/25 11:30 Dextrose 50 ml UD PRN IV 04/07/25 09:00 Sodium Chloride 10 ml Q8HR IV 04/07/25 14:00 04/12/25 06:09 10 ML Acetaminophen/ Hydrocodone Bitart 1 tab Q4HP PRN PO 04/07/25 09:00 04/11/25 18:14 1 TAB Ondansetron HCl 4 mg Q4HP PRN IV 04/07/25 09:00 Docusate Sodium 100 mg BIDPRN PRN PO 04/07/25 09:00 04/11/25 09:21 100 MG Acetaminophen 650 mg Q6HP PRN PO 04/07/25 09:00 Morphine Sulfate 2 mg Q4HPRN PRN IV 04/07/25 10:00 04/10/25 09:50 2 MG Nitroglycerin 0.4 mg Q5MINP PRN SL 04/07/25 09:45 Morphine Sulfate 2 mg Q30M PRN IV 04/07/25 10:00 Metformin HCl 850 mg BIDWM PO 04/08/25 18:00 04/12/25 09:18 850 MG Nifedipine 90 mg DAILY PO 04/09/25 10:00 04/12/25 09:18 90 MG Trazodone HCl 50 mg HS PO 04/10/25 22:00 04/11/25 21:56 50 MG Laboratory Results Laboratory Tests 04/10/25 05:18 Microbiology Microbiology Date/Time Source Procedure Growth Status 04/07/25 19:45 Hip Gram Stain - Final Complete 04/07/25 19:45 Wound Culture - Final Acinetobacter baumannii MDRO Complete Labs and/or images reviewed: Labs reviewed by me, Image(s) reviewed by me Assessment/Plan Assessment/Plan Sepsis secondary to unstageable extensive sacral decubitus ulcers present on admission: Wound cultures growing Pseudomonas and Acinetobacter MDRO, bacteria resistant to all the antibiotics Acute on chronic anemia hemoglobin 7.2 improved to 12.0 after 2 units RBC t ransfusion GI consult by Dr. Mary Cronin appreciated, Mild Gastritis and grade a erosive esophagitis by EGD by Dr. Mary Cronin 04-09-25 Right femoral subtrochanteric pathologic fracture Extensive sacral wounds, infected Sepsis due to above DM2 Bilateral ovarian cysts Constipation paraplegia anasarca severe protein calorie malnutrition Patient came from [place] [facility] acute under the care of Dr. Butler Plan discussed with: Patient Date of Service: Apr 12, 2025 Billing Provider: KENRICK DE LA ROSA MD Common Visit Codes: [id number] INP/OBS CARE(HIGH) KENRICK DE LA ROSA MD Apr 12, 2025 10:44
[2025-04-12 10:47] LABS: Folate (Folic Acid) 9.05 ng/mL (>5.38)
--- NOTE | 2025-04-12 20:38 | DVHPN2 ---
Progress Note - Dictate Date Seen: Apr 12, 2025 Medical Necessity Reason Pt with a Central, PICC or Fol: No Subjective No new complaints EGD mild gastritis Undergoing wound care On IV Abx Vit b12 ; folate nl Iron profile c/w anemia of chronic disease Stool for occult blood negative vital signs Vital Sign Date Time Temp Pulse Resp B/P (MAP) Pulse Ox O2 Delivery O2 Flow Rate FiO2 04/12/25 16:24 98.0 100 6 144/68 (93) 100 98.0 04/12/25 08:00 Nasal Cannula* 3 32 Total Intake and Output 04/11/25 04/11/25 04/12/25 15:00 23:00 07:00 Intake Total 825 ml 600 ml Output Total 550 ml 325 ml Balance 275 ml 275 ml medications Current Medications Medications Dose Ordered Sig/Adore Route Start Time Stop Time Status Last Admin Dose Admin Celecoxib 100 mg Q12HR PO 04/07/25 10:00 04/12/25 09:18 100 MG Duloxetine HCl 60 mg DAILY PO 04/07/25 10:00 04/12/25 09:18 60 MG Mirtazapine 30 mg HS PO 04/07/25 22:00 04/11/25 21:56 30 MG Oxybutynin Chloride 5 mg Q8HR PO 04/07/25 14:00 04/12/25 13:22 5 MG Azithromycin 250 ml @ 125 mls/hr DAILY IV 04/08/25 10:00 04/12/25 09:15 125 MLS/HR Diagnostic Test (Pha) 1 strip ACHS 04/07/25 11:30 04/12/25 06:09 1 STRIP Insulin Human Regular ACHS SC 04/07/25 11:30 Dextrose 50 ml UD PRN IV 04/07/25 09:00 Sodium Chloride 10 ml Q8HR IV 04/07/25 14:00 04/12/25 11:32 10 ML Acetaminophen/ Hydrocodone Bitart 1 tab Q4HP PRN PO 04/07/25 09:00 04/12/25 17:26 1 TAB Ondansetron HCl 4 mg Q4HP PRN IV 04/07/25 09:00 Docusate Sodium 100 mg BIDPRN PRN PO 04/07/25 09:00 04/11/25 09:21 100 MG Acetaminophen 650 mg Q6HP PRN PO 04/07/25 09:00 Morphine Sulfate 2 mg Q4HPRN PRN IV 04/07/25 10:00 04/10/25 09:50 2 MG Nitroglycerin 0.4 mg Q5MINP PRN SL 04/07/25 09:45 Morphine Sulfate 2 mg Q30M PRN IV 04/07/25 10:00 Metformin HCl 850 mg BIDWM PO 04/08/25 18:00 04/12/25 17:26 850 MG Nifedipine 90 mg DAILY PO 04/09/25 10:00 04/12/25 09:18 90 MG Trazodone HCl 50 mg HS PO 04/10/25 22:00 04/11/25 21:56 50 MG objective General Appearance: Alert, Oriented X3, Cooperative, No acute distress HEENT: Atraumatic, PERRLA, EOMI, Mucous membr. moist/pink Respiratory: Clear to auscultation, Normal air movement Cardiovascular: Regular rate, Normal S1, Normal S2, No murmurs Abdominal: Normal bowel sounds, Soft, No tenderness, No hepatospenomegaly, No masses Extremities: No clubbing, No edema, Normal pulses, Other (Paraplegic) laboratory and microbiology Laboratory Tests 04/10/25 05:18 Test 04/10/25 05:18 Range/Units Serum Glucose 92 74-106 mg/dL Problems(with codes): (1) Anemia in chronic illness (2) Pneumonia, unspecified organism (3) Generalized weakness (4) Wound of back (5) Symptomatic anemia Prognosis PLAN Protonix 40 mg po daily D/C ASA and NSAIDS Stool occult negative ; CEA normal ; anemia of chronic disease Will defer colonoscopy due to extensive sacral wounds Dietary Evaluation Review Comments: 2GNA CCHO-60, [place] BID for wound healing Expected Outcomes/Goals: Controlled DM with CCHO-60 diet, Controlled HTN with less sodium in diet. gradual wt loss, healed wounds Plan discussed with: Other (None) CC Plasma Assessment Blood Product Administration S: [id number] ABHINAV GUNN MD Apr 12, 2025 20:38
[2025-04-13 05:00] VITALS: BP 128/74; PULSE 98; RESP 17; TEMP 98.2; O2SAT 99
[2025-04-13 08:00] VITALS: PULSE 93; PULSE 96; RESP 16; O2SAT 100
[2025-04-13 09:00] VITALS: BP 151/77; PULSE 96; RESP 16; TEMP 97.8; O2SAT 100
[2025-04-13 13:00] VITALS: BP 106/74; PULSE 94; RESP 18; TEMP 98.3; O2SAT 100
--- NOTE | 2025-04-13 16:04 | DVHDS2 ---
Discharge Summary Date of Admission Apr 07, 2025 at 09:33 Date of Discharge: Apr 13, 2025 Admitting Diagnosis Anemia Labs/Diagnostic Data: Laboratory Results Test 04/13/25 11:31 04/11/25 18:45 04/10/25 05:18 04/08/25 05:21 POC Glucose 106 mg/dl (70-106) Stool Occult Blood Negative (Negative) Stool Occult Blood Sample #3 (Negative) White Blood Count 7.8 10^3/uL (4.4-10.8) Red Blood Count 4.47 10^6/uL (4.0-5.20) Hemoglobin 11.3 g/dL (12.2-16.2) Hematocrit 34.1 % (36.0-46.0) Mean Corpuscular Volume 76.4 fL (80.0-100.0) Mean Corpuscular Hemoglobin 25.2 pg (28.0-32.0) Mean Corpuscular Hemoglobin Concent 33.0 g/dL (32.0-36.0) Red Cell Distribution Width 18.3 % (11.8-14.3) Platelet Count 457 10^3/uL (140-450) Mean Platelet Volume 7.0 fL (6.9-10.8) Neutrophils (%) (Auto) 67.5 % (37.0-80.0) Lymphocytes (%) (Auto) 19.5 % (10.0-50.0) Monocytes (%) (Auto) 11.9 % (0.0-12.0) Eosinophils (%) (Auto) 0.7 % (0.0-7.0) Basophils (%) (Auto) 0.4 % (0.0-2.0) Neutrophils # (Auto) 5.3 10 ^3/uL (1.6-8.6) Lymphocytes # (Auto) 1.5 10 ^3/uL (0.4-5.4) Monocytes # (Auto) 0.9 10 ^3/uL (0-1.3) Eosinophils # (Auto) 0.1 10 ^3/uL (0-0.8) Basophils # (Auto) 0 10 ^3/uL (0-0.2) Nucleated Red Blood Cells 0.1 % Sodium Level 143 mmol/L (136-145) Potassium Level 3.7 mmol/L (3.5-5.1) Chloride Level 106 mmol/L (98-107) Carbon Dioxide Level 26 mmol/L (20-31) Anion Gap 11 (5-15) Blood Urea Nitrogen 12 mg/dL (9-23) Creatinine 0.41 mg/dL (0.550-1.02) Glomerular Filtration Rate Calc 106 mL/min (>90) BUN/Creatinine Ratio 29.3 (10.0-20.0) Serum Glucose 92 mg/dL (74-106) Calcium Level 10.1 mg/dL (8.7-10.4) Iron Level 47 ug/dL (50-170) Total Iron Binding Capacity 168 ug/dL (250-425) Percent Iron Saturation 28.0 % (15-50) Ferritin 304.7 ng/mL (10-291) Carcinoembryonic Antigen 1.38 ng/mL (<=5.0) Vitamin B12 Level 389 pg/mL (211-911) Folic Acid 9.05 ng/mL (>5.38) Total Bilirubin 0.3 mg/dL (0.2-1.0) Aspartate Amino Transferase (AST) 19 U/L (13-40) Alanine Aminotransferase (ALT) 10 U/L (7-40) Alkaline Phosphatase 80 U/L (46-116) Total Protein 5.8 g/dL (5.7-8.2) Albumin 3.2 g/dL (3.2-4.8) Other Laboratory Tests 04/10/25 05:18 Brief Hx & Hospital Course: The patient is a 69-year-old female paraplegic with past medical history of right femoral fracture, ovarian cysts, hypertension, and diabetes mellitus presented to [facility] ED for evaluation of abnormal labs. As reported by daughter, patient is currently staying at [facility] and was found to have a "critically low" hemoglobin after blood work this morning. Daughter relays that the patient was sent to the ED for blood transfusion. Daughter states that the patient has multiple wounds to her back and pain due to the wounds, requiring wound care around the clock along with pain control with [place] 5/325mg. Patient's hemoglobin was 7.2 on admission. She received 2 units PRBC and repeat hemoglobin this morning is 12. Patient denied any active GI bleeding but her personal trainer at bedside stated that the patient may have had some dark stools. Patient underwent EGD, see operative report below. Patient has chronic decubitus with looks clean. Although, wound cultures are growing MDRO, wound looks clean and patient and recently completed ABx. Patient can continue local wound care once discharged to SNF. Operations or Procedures Operative Report DATE OF OPERATION: 04/09/25 PROCEDURE: Upper Endoscopy with biopsy. PREOPERATIVE INDICATION: The patient is a 69 -year-old female undergoing endoscopy for anemia POSTOPERATIVE DIAGNOSES: 1. Mild antral gastritis with some hyperemia erythema 2. 5 mm extension of columnar epithelium into the distal esophagus with minimal grade a erosive esophagitis 3. Otherwise normal examination up to the 2nd and 3rd part of the duodenal with no active bleeding or ulceration PROCEDURE PERFORMED BY: Veronica Cronin GI NURSE: Mervat SCOPE: Olympus videoendoscope. ASA CLASS: 2 PREOPERATIVE MEDICATIONS: Mac tameka, Dr. Heart PROCEDURE IN DETAIL: After obtaining an informed consent, the patient was placed on left lateral decubitus position. The patient was then sedated with the above medications. A bite block was placed between her teeth. The endoscope was then passed through the oropharynx, into the esophagus, and through the stomach and pylorus up to the second and third part of the duodenum. The endoscope was then withdrawn. The 2nd and 3rd part of the duodenum and the duodenal bulb were normal. Duodenal biopsies were obtained. The pre-pyloric area antrum and distal body showed mild gastritis with hyperemia erythema. Gastric biopsies were obtained. On retroflexion the fundus cardia and angularis were normal. There was no fresh or old blood in the upper GI tract. The endoscope was then withdrawn into the distal esophagus where the patient had a 0.5 cm hiatal hernia with minimal grade a erosive esophagitis GE junction biopsies were obtained. The remaining distal and proximal esophagus and oropharynx were unremarkable. The patient tolerated the procedure well without difficulty. COMPLICATIONS : None SPECIMENS: Biopsies Gastric biopsies GE junction biopsies DISPOSITION: Transfer back to the floor Stable PLAN: 1. Await for biopsy result 2. Will place pt on Protonix 40 mg p.o. daily 3. Resume GI soft diet advance as tolerated 4. Arrange colonoscopy to complete anemia workup, if discharge this can be done as an outpatient Condition at Discharge: Poor Final Diagnosis/Problems List Unstageable extensive sacral decubitus ulcers presenton admission: Wound cultures growing Pseudomonas and Acinetobacter MDRO, bacteria resistant to all the antibiotics Acute on chronic anemia hemoglobin 7.2 improved to 12.0 after 2 units RBC Mild Gastritis and grade a erosive esophagitis by EGD by Dr. Mary Cronin 04-09-25 Right femoral subtrochanteric pathologic fracture Extensive sacral wounds, infected Sepsis due to above DM2 Bilateral ovarian cysts paraplegia anasarca severe protein calorie malnutrition Discharge Disposition: Halfway Facility Discharge Instruct/Medications Diet: Regular Activity: Light activity Medications: see med [facility] Discharge Statement: "Patient was advised to return to the ER or call 911 if any headaches, dizziness, shortness of breath, chest pain, abdominal pain, bleeding, fevers, or worsening of medical condition. Patient was counseled about treatment plan, medications, possible side effects, patientverbalized understanding. All questions were answered to the best of my ability. This discharge took greater then 30 minutes in planning, reviewing documentation, counseling the patient, and discussing with other team members." ASSESSMENT ASSESSMENT Assessment Date of Service: Apr 13, 2025 Billing Provider: TESHA VILLARREAL MD Common Visit Codes: 03754-GXR/OBS DISCH DAY >30min TESHA VILLARREAL MD Apr 13, 2025 16:04
[2025-04-13 16:22] VITALS: BP 106/74; PULSE 94; RESP 18; TEMP 98.3; O2SAT 100
[2025-04-13 16:59] VITALS: BP 143/78; PULSE 95; RESP 17; TEMP 97.5; O2SAT 97
--- NOTE | 2025-04-13 20:48 | DVHPN2 ---
Progress Note - Dictate Date Seen: Apr 13, 2025 (Late entryPt seen at 4 pm) Medical Necessity Reason Pt with a Central, PICC or Fol: No Subjective No new complaints EGD mild gastritis Undergoing wound care On IV Abx Vit b12 ; folate nl Iron profile c/w anemia of chronic disease Stool for occult blood negative vital signs Vital Sign Date Time Temp Pulse Resp B/P (MAP) Pulse Ox O2 Delivery O2 Flow Rate FiO2 04/13/25 16:59 97.5 95 17 143/78 (99) 97 97.5 04/13/25 08:00 Nasal Cannula* 2 28 Total Intake and Output 04/12/25 04/12/25 04/13/25 15:00 23:00 07:00 Intake Total 250 ml 550 ml 650 ml Output Total 900 ml 475 ml Balance 250 ml -350 ml 175 ml objective General Appearance: Alert, Oriented X3, Cooperative, No acute distress HEENT: Atraumatic, PERRLA, EOMI, Mucous membr. moist/pink Respiratory: Clear to auscultation, Normal air movement Cardiovascular: Regular rate, Normal S1, Normal S2, No murmurs Abdominal: Normal bowel sounds, Soft, No tenderness, No hepatospenomegaly, No masses Extremities: No clubbing, No edema, Normal pulses, Other (Paraplegic) laboratory and microbiology Laboratory Tests 04/10/25 05:18 Test 04/10/25 05:18 Range/Units Serum Glucose 92 74-106 mg/dL CT SCAN ABD PELVIS IMPRESSION: Limited noncontrast imaging. Constipation. Gastric wall thickening which may be due to inadequate distention/gastritis. Contrast is noted within the stomach, small bowel loops and ascending colon with borderline distention of proximal segmental small bowel up to 3 cm which may be due to ileus. Large bilateral ovarian cysts are noted. Moderate body wall edema. Mild mesenteric edema. Moderate bilateral pleural effusions with associated atelectasis. Sacral decubitus ulcer which appears to extend to the sacrum with erosive changes of the sacrum and coccyx. Correlate for osteomyelitis. Redemonstration of right-sided sub trochanteric comminuted femoral fracture with associated posterior wound and gas extending from the wound to the area of the fracture. Previously noted abscess appears to have been drained in the interim. Problems(with codes): (1) Anemia in chronic illness (2) Pneumonia, unspecified organism (3) Generalized weakness (4) Wound of back (5) Symptomatic anemia (6) Elevated lactic acid level (7) Cellulitis (8) Anemia Prognosis PLAN Protonix 40 mg po daily D/C ASA and NSAIDS Stool occult negative ; CEA normal ; anemia of chronic disease Will defer colonoscopy due to extensive sacral wounds Discharge planning in progress today to [facility] Dietary Evaluation Review Comments: 2GNA CCHO-60, Fortunato BID for wound healing Expected Outcomes/Goals: Controlled DM with CCHO-60 diet, Controlled HTN with less sodium in diet. gradual wt loss, healed wounds Plan discussed with: Patient, Son, Other (Nurse) CC Plasma Assessment Blood Product Administration S: [id number] ABHINAV GUNN MD Apr 13, 2025 20:48
== END 2025-04-13 19:55 | DRG 871 ==
LOC: ER 04:46 → EDUNIT# 04:46 → EDBD 04:46 → OVERFLOW 09:33 → TELE-EAST 18:43
PROVIDERS: ADMIT Internal Medicine; ATTEND Internal Medicine
PROC: 30233N1 Transfusion of Nonautologous Red Blood Cells into Peripheral Vein, Percutaneous Approach (ICD-10-PCS; principal; 2025-04-07)
PROC: 0DB68ZX Excision of Stomach, Via Natural or Artificial Opening Endoscopic, Diagnostic (ICD-10-PCS; 2025-04-09)
PROC: 0DB58ZX Excision of Esophagus, Via Natural or Artificial Opening Endoscopic, Diagnostic (ICD-10-PCS; 2025-04-09)
PROC: 0DB48ZX Excision of Esophagogastric Junction, Via Natural or Artificial Opening Endoscopic, Diagnostic (ICD-10-PCS; 2025-04-09)
DX: A41.52 Sepsis due to Pseudomonas (principal); E43 Unspecified severe protein-calorie malnutrition; L89.154 Pressure ulcer of sacral region, stage 4; J18.9 Pneumonia, unspecified organism; G82.20 Paraplegia, unspecified; M84.451A Pathological fracture, right femur, initial encounter for fracture; K22.10 Ulcer of esophagus without bleeding; Z16.24 Resistance to multiple antibiotics; A41.54 Sepsis due to Acinetobacter baumannii; K59.00 Constipation, unspecified; N83.201 Unspecified ovarian cyst, right side; N83.202 Unspecified ovarian cyst, left side; D63.8 Anemia in other chronic diseases classified elsewhere; K29.70 Gastritis, unspecified, without bleeding; K44.9 Diaphragmatic hernia without obstruction or gangrene; I10 Essential (primary) hypertension; Z68.38 Body mass index [BMI] 38.0-38.9, adult; E11.9 Type 2 diabetes mellitus without complications; Z83.3 Family history of diabetes mellitus; Z82.49 Family history of ischemic heart disease and other diseases of the circulatory system
CPT/HCPCS: 36415; 71045; 74176; 80048; 80053; 82270; 82378; 82607; 82728; 82746; 82962; 83540; 83550; 85025; 86850; 86900; 86901; 86920; 87077; 87081; 87186; 87205; 96365; 96375; 99291; G0378; J1100; J2250; J2405; J2704

== ENCOUNTER 2025-06-03 17:05 | Inpatient (IN) | payer MEDICARE, MEDICAID ==
[~2025-06-03] VITALS: Ht 157.5 cm; Wt 56.2 kg
[~2025-06-03 17:05] MED LIST changes: +ASCO500C49 PO; -DIAZ10TA66 PO; -SULF800T23 PO; -TRAM50TA2 PO; +[UNRECOGNIZED DRUG - CODE] PO
--- NOTE | 2025-06-03 17:21 | ED.PDOC ---
History of Present Illness HPI Comments 70 y/o female with a history of quadriplegia and diabetes myelitis was BIBA for CC of abnormal labs. EMS reports, patient is coming from [facility] where staff called d/t patient receiving abnormal labs showing elevated WBC. Patient is a quadriplegic however, still has partial mobility of her right arm. Patient denies fever, chills, sweats, nausea, or vomiting. No other symptoms or modifying factors present at this time. Time Seen by MD: 17:15 Reviewed Notes: Nurses Notes, Vocational Placement Specialist Notes, Medications, Allergies Allergies: Uncoded Allergies: BLOOD THINNERS (Adverse Reaction, Severe, 03/16/19) Home Meds Reported Medications Iron Glycinate (Iron) 18 Mg/15 Ml Liq, 18 MG PO, LIQ 04/07/25 Ascorbic Acid (VITAMIN C) 500 Mg Cap, 500 MG PO, CAP 04/07/25 Cholecalciferol (VITAMIN D3) 5,000 Unit Tab, 5000 UNIT PO DAILY, TAB 03/16/19 Metformin Hydrochloride (Metformin Hcl) 500 Mg Tab, 500 MG PO DAILY for 30 Days, MG 03/16/19 Mirtazapine (REMERON) 30 Mg Tab, 1 TAB PO HS, #30 TAB 1 Refill 03/16/19 Celecoxib (Celebrex) 200 Mg Cap, 1 CAP PO BID, #30 CAP 2 Refills 03/16/19 Duloxetine Hcl (Cymbalta) 60 Mg Cap, 1 CAP PO DAILY, #90 CAP 3 Refills 03/16/19 Tizanidine Hydrochloride (Zanaflex) 4 Mg Cap, 1 CAP PO HS, #30 CAP 03/16/19 Oxybutynin Chloride (Ditropan Xl) 5 Mg Tab, 5 MG PO TID for 30 Days, MG 03/16/19 Information Source: Patient, Emergency Med Personnel Mode of Arrival: EMS Severity: Moderate Timing: Days Duration: Since onset Prehospital treatment: None Past Medical History PAST MEDICAL HISTORY: DM Surgical History: Denies all surgeries TECHNICAL SERVICES MANAGER History: Ovarian Cysts Family History Family History: Reviewed,noncontributory to illness Social History Smoker: Non-Smoker Alcohol: Denies ETOH Use Drugs: Denies Drug Use Lives In: Home, Assisted Care Constitutional: denies: chills, diaphoresis, fatigue, fever, malaise, sweats, weakness, others EENTM: denies: blurred vision, double vision, ear bleeding, ear discharge, ear drainage, ear pain, ear ringing, eye pain, eye redness, hearing loss, mouth pain, mouth swelling, nasal discharge, nose bleeding, nose congestion, nose pain, photophobia, tearing, throat pain, throat swelling, voice changes, others Respiratory: denies: cough, hemoptysis, orthopnea, SOB at rest, shortness of breath, SOB with excertion, stridor, wheezing, others Cardiovascular: denies: chest pain, dizzy spells, diaphoresis, Dyspnea on exertion, edema, irregular heart beat, left arm pain, lightheadedness, palpitations, PND, syncope, others Gastrointestinal: denies: abdomen distended, abdominal pain, blood streaked bowels, constipated, diarrhea, dysphagia, difficulty swallowing, hematemesis, melena, nausea, poor appetite, poor fluid intake, rectal bleeding, rectal pain, vomiting, others Genitourinary: denies: abnormal vagina bleeding, burning, dyspareunia, dysuria, flank pain, frequency, hematuria, incontinence, pain, , vagina discharge, urgency, others Neurological: denies: dizziness, fainting, headache, left sided numbness, left sided weakness, numbness, paresthesia, pre-existing deficit, right sided numbness, right sided weakness, seizure, speech problems, tingling, tremors, weakness, others Musculoskeletal: denies: back pain, gout, joint pain, joint swelling, muscle pain, muscle stiffness, neck pain, others Integumetry: denies: bruises, change in color, change in hair/nails, dryness, laceration, lesions, lumps, rash, wounds, others Allergic/Immunocompromised: denies: Difficulty Healing, Frequent Infections, Hives, Itching, others Hematologic/Lymphatic: denies: anemia, blood clots, easy bleeding, easy bruising, swollen glands, others Endocrine: denies: excessive hunger, excessive sweating, excessive thirst, excessive urination, flushing, intolerance to cold, intolerance to heat, unexplained weight gain, unexplained weight loss, others Psychiatric: denies: anxiety, bipolar disorder, depression, hopeless, panic dis order, schizophrenia, sleepless, suicidal, others All Other Systems: Reviewed and Negative Physical Exam General Appearance: No Apparent Distress (Patient did not appear to be in distress at time of evaluation. Patient is a quadriplegic with), Normal HEENT: Normal ENT Inspection, Pharynx Normal, TMs Normal Neck: Full Range of Motion, Non-Tender, Normal, Normal Inspection Respiratory: Chest Non-Tender, Lungs Clear, No Accessory Muscle Use, No Respiratory Distress, Normal Breath Sounds Cardiovascular: No Edema, No JVD, No Murmur, No Gallop, Normal Peripheral Pulses, Regular Rate/Rhythm Breast Exam: Deferred Gastrointestinal: No Pulsatile Mass, Normal Bowel Sounds, Soft Genitalia: Deferred Pelvic: Deferred Rectal: Deferred Extremities: No pedal edema Neurologic: Alert Cerebellar Function: NOT DONE Reflexes: NOT DONE Skin: Dry, Normal Color, Warm Lymphatic: No Adenopathy Was a procedure done? Was a procedure done?: No Differential Dx Considerations may include: Elevated white blood cell count, sepsis, electrolyte abnormality, UTI X-Ray, Labs, Meds, VS Vital Signs Date Time Temp Pulse Resp B/P (MAP) Pulse Ox O2 Delivery O2 Flow Rate FiO2 06/03/25 23:43 99.0 113 20 112/66 (81) 97 99.0 06/03/25 17:10 98.9 100 16 123/57 98 98.9 Lab Test 06/03/25 20:51 06/03/25 17:41 Range/Units Lactic Acid Level 2.2 *H 2.6 *H 0.4-2.0 mmol/L White Blood Count 11.4 H 4.4-10.8 10^3/uL Red Blood Count 3.66 L 4.0-5.20 10^6/uL Hemoglobin 9.7 L 12.2-16.2 g/dL Hematocrit 29.9 L 36.0-46.0 % Mean Corpuscular Volume 81.5 80.0-100.0 fL Mean Corpuscular Hemoglobin 26.5 L 28.0-32.0 pg Mean Corpuscular Hemoglobin Concent 32.5 32.0-36.0 g/dL Red Cell Distribution Width 19.5 H 11.8-14.3 % Platelet Count 680 H 140-450 10^3/uL Mean Platelet Volume 7.4 6.9-10.8 fL Neutrophils (%) (Auto) 80.9 H 37.0-80.0 % Lymphocytes (%) (Auto) 9.4 L 10.0-50.0 % Monocytes (%) (Auto) 7.6 0.0-12.0 % Eosinophils (%) (Auto) 1.9 0.0-7.0 % Basophils (%) (Auto) 0.2 0.0-2.0 % Neutrophils # (Auto) 9.2 H 1.6-8.6 10 ^3/uL Lymphocytes # (Auto) 1.1 0.4-5.4 10 ^3/uL Monocytes # (Auto) 0.9 0-1.3 10 ^3/uL Eosinophils # (Auto) 0.2 0-0.8 10 ^3/uL Basophils # (Auto) 0 0-0.2 10 ^3/uL Nucleated Red Blood Cells 0.0 % Sodium Level 139 136-145 mmol/L Potassium Level 5.5 H 3.5-5.1 mmol/L Chloride Level 109 H 98-107 mmol/L Carbon Dioxide Level 21 20-31 mmol/L Anion Gap 9 5-15 Blood Urea Nitrogen 27 H 9-23 mg/dL Creatinine 0.57 0.550-1.02 mg/dL Glomerular Filtration Rate Calc 97 >90 mL/min BUN/Creatinine Ratio 47.4 H 10.0-20.0 Serum Glucose 143 H 74-106 mg/dL Calcium Level 10.1 8.7-10.4 mg/dL Total Bilirubin 0.2 0.2-1.0 mg/dL Aspartate Amino Transferase (AST) 31 13-40 U/L Alanine Aminotransferase (ALT) 28 7-40 U/L Alkaline Phosphatase 110 46-116 U/L Total Protein 6.5 5.7-8.2 g/dL Albumin 4.0 3.2-4.8 g/dL Current Medications Medications (Trade) Dose Ordered Sig/Adore Route Start Time Stop Time Status Last Admin Sodium Chloride 1,000 ml @ 1,000 mls/hr Q1H ONCE IV 06/03/25 22:45 06/03/25 23:44 DC 06/03/25 23:40 X-Ray, Labs, Meds, VS Comment Urinalysis was pending at time of this note. Serum laboratories were relatively unremarkable for when he concerning issues. Patient displayed a very mild elevated white blood cell count as well as signs of anemia. Patient did have an elevated lactic acid. Patient will be admitted for dehydration and elevated lactic acid concerns. Patient's urine will be evaluated by hospitalist and once reviewed, he will she will respond accordingly. Time of 1ST Reevaluation: 01:06 Reevaluation 1ST: Unchanged Consultation: PCP Patient Education/Counseling: Diagnosis, Treatment Family Education/Counseling: Diagnosis, Treatment, No Family Present SEPSIS Sepsis Screen Recent Procedure: No On Antibiotic Therapy: No Respiratory Rate >20: No Heart Rate >90: No Temp<36 C (96.8 F) or >38.3 C: No SBP <90 or MAP <65 mmHG: No New Acute Mental Status Change: No Is the patient on CPAP, BIPAP,: No Physician Orders Urinalysis (06/03/25 17:16) Heplock Iv (06/03/25 ) Vital Signs Date Time Temp Pulse Resp B/P (MAP) Pulse Ox O2 Delivery O2 Flow Rate FiO2 06/03/25 23:43 99.0 113 20 112/66 (81) 97 99.0 06/03/25 17:10 98.9 100 16 123/57 98 98.9 Laboratory Tests Test 06/03/25 17:41 06/03/25 20:51 Lactic Acid Level 2.6 mmol/L (0.4-2.0) *H 2.2 mmol/L (0.4-2.0) *H White Blood Count 11.4 10^3/uL (4.4-10.8) H Medications Medications Dose Ordered Sig/Adore Route Start Time Stop Time Status Last Admin Dose Admin Sodium Chloride 1,000 ml @ 1,000 mls/hr Q1H ONCE IV 06/03/25 22:45 06/03/25 23:44 DC 06/03/25 23:40 Departure 1 Departure Time of Disposition: 01:06 Impression: Primary Impression: Anemia Additional Impressions: Elevated lactic acid level Leukocytosis Disposition: ADMITTED INPATIENT Condition: Stable Discharged With: Self Critical Care Note Critical Care Time?: No Stability Stability form required: No Heart Score Heart Score: Heart Score Response (Comments) Value History N/A 0 EKG N/A 0 Age N/A 0 Risk Factors N/A 0 Troponin N/A 0 Total 0 I personally scribed for BAILEY KOCH PAC ([email or web address]) on 06/03/25 at 17:21. Electronically submitted by Carla Robin [email or web address]). BAILEY KOCH PAC Jun 03, 2025 17:21
[2025-06-03 17:58] LABS: Hematocrit 29.9 % (36.0-46.0); Hemoglobin 9.7 g/dL (12.2-16.2)
[2025-06-03 18:00] LABS: Mean Corpuscular Hemoglobin 26.5 pg (28.0-32.0); Mean Corpuscular Volume 81.5 fL (80.0-100.0); Nucleated Red Blood Cells % 0.0 %
[2025-06-03 18:10] LABS: Alkaline Phosphatase 110 U/L (46-116)
[2025-06-03 18:11] LABS: Alanine Aminotransferase 28 U/L (7-40); Albumin 4.0 g/dL (3.2-4.8); Anion Gap 9 (5-15); BUN/Creatinine Ratio 47.4 (10.0-20.0); Calcium 10.1 mg/dL (8.7-10.4); Carbon Dioxide 21 mmol/L (20-31); Sodium 139 mmol/L (136-145); Total Protein 6.5 g/dL (5.7-8.2)
[2025-06-03 18:12] LABS: Bilirubin, Total 0.2 mg/dL (0.2-1.0); Blood Urea Nitrogen 27 mg/dL (9-23); Chloride 109 mmol/L (98-107); Glucose 143 mg/dL (74-106); Potassium 5.5 mmol/L (3.5-5.1)
[2025-06-03 18:24] LABS: Lactic Acid w/Reflex 2.6 mmol/L (0.4-2.0)
[2025-06-03] MEDS: SODIUM CHLORIDE 0.9% 1,000 ML IV ONE (23:40)
[2025-06-04 01:48] LABS: Urine Protein, UAD TRACE (Negative); Urine WBC Clumps PRESENT /hpf (None Seen)
[2025-06-04] MEDS ORDERED: DOCUSATE SOD 100 MG CAP PO PRN (02:15)
[2025-06-04] MEDS ORDERED: DEXTROSE (50%) 50ML SYRG IV PRN (02:15)
[2025-06-04] MEDS ORDERED: MORPHINE SULFATE INJ 2 MG/ml SYRG IV PRN (02:15)
[2025-06-04] MEDS ORDERED: ACETAMINOPHEN 325 MG TAB PO PRN (02:15)
[2025-06-04] MEDS ORDERED: NITROGLYCERIN 0.4 MG SL TAB SL PRN (02:15)
[2025-06-04] MEDS ORDERED: VANCOMYCIN PER PHARMACY 0 MG IV SCH (02:15)
--- NOTE | 2025-06-04 02:30 | DVHHP2 ---
History of Present Illness Reason for Visit: Generalized weakness History of Present Illness The patient is a 70-year-old female with past medical history of diabetes mellitus and ovarian cyst who presented to [facility] ED with complaint of generalized weakness. Patient is coming from [facility] for abnorma l lab results. She is a quadriplegic however, still has partial mobility of her right arm. Patient was seen and evaluated in the ED, laboratory data shows WBC 11.4, hemoglobin 8.7, hematocrit 29.9, platelets 680, sodium 139, potassium 5.5, BUN 27, creatinine 0.57, glucose 143, lactic acid 2.2, blood pressure 112/66, heart rate 100, temperature 99.0 F, O2 saturation 97% on room air. Please see medication orders section in the computer. On my assessment, patient denied chest pain, no headache, no dizziness, no shortness of breath, no nausea, no vomiting, no fever, no chills. Patient was admitted for evaluation medical management. Past Medical History DM, Ovarian Cysts Past Surgical History Denies all surgeries Family History Reviewed, noncontributory to the management of this case. Past Social History The patient lives at home, denies smoking, alcohol or illicit drugs abuse. Review of Systems Constitutional: Yes: Weakness; No: Fever, Chills, Sweats, Malaise, Other Eyes: No: Pain, Vision change, Conjunctivae inflammation, Eyelid inflammation, Other, Redness ENT: No: Ear pain, Ear discharge, Nose pain, Nose discharge, Nose congestion, Mouth pain, Mouth swelling, Throat pain, Throat swelling, Other Respiratory: No: Cough, Dry, Shortness of breath, SOB with excertion, Wheezing, Hemoptysis, Pleuritic Pain, Sputum, Wheezing, Other Cardiovascular: No: Chest Pain, Palpitations, Orthopnea, Paroxysmal Noc. Dyspnea, Edema, Lt Headedness, Other Gastrointestinal: No: Nausea, Vomiting, Abdominal Pain, Diarrhea, Constipation, Melena, Hematochezia, Other Genitourinary: No Dysuria, No Frequency, No Incontinence, No Hematuria, No Retention, No Other Musculoskeletal: No: other, neck pain, shoulder pain, arm pain, back pain, hand pain, leg pain, foot pain Skin: No: Rash, Lesions, Jaundice, Bruising, Other Neurological: Other (Quadriplegic); No: Weakness, Numbness, Incoordination, Change in speech, Confusion, Seizures Allergies: Uncoded Allergies: BLOOD THINNERS (Adverse Reaction, Severe, 03/16/19) Medications Current Medications Medications Dose Ordered Sig/Adore Route Start Time Stop Time Status Last Admin Dose Admin Ceftriaxone Sodium 50 ml @ 100 mls/hr DAILY@09 IV 06/04/25 09:00 UNV Vancomycin HCl 0 ml @ 0 mls/hr UD IV 06/04/25 02:15 UNV Diagnostic Test (Pha) 1 strip ACHS 06/04/25 07:00 UNV Insulin Human Regular HS SC 06/04/25 22:00 UNV Insulin Human Regular AC SC 06/04/25 07:00 UNV Dextrose 50 ml UD PRN IV 06/04/25 02:15 UNV Sodium Chloride 1,000 ml @ 60 mls/hr [id number] IV 06/04/25 02:15 UNV Acetaminophen/ Hydrocodone Bitart 1 tab Q4HP PRN PO 06/04/25 02:15 UNV Ondansetron HCl 4 mg Q4HP PRN IV 06/04/25 02:15 UNV Docusate Sodium 100 mg BIDPRN PRN PO 06/04/25 02:15 UNV Acetaminophen 650 mg Q6HP PRN PO 06/04/25 02:15 UNV Nitroglycerin 0.4 mg Q5MINP PRN SL 06/04/25 02:15 UNV Morphine Sulfate 2 mg Q30M PRN IV 06/04/25 02:15 UNV Exam Vital Signs Vital Signs Date Time Temp Pulse Resp B/P (MAP) Pulse Ox O2 Delivery O2 Flow Rate FiO2 06/03/25 23:43 99.0 113 20 112/66 (81) 97 99.0 General Appearance: Alert, Oriented X3, Cooperative, No acute distress HEENT: Atraumatic, PERRLA, EOMI, Mucous membr. moist/pink Respiratory: Normal air movement Cardiovascular: Regular rate, Normal S1, Normal S2, No murmurs Abdominal: Normal bowel sounds, Soft, No tenderness, No hepatospenomegaly, No masses Extremities: No clubbing, No cyanosis, No edema, Normal pulses, No tenderness/swelling Skin: No rashes, No breakdown, No significant lesion Neuro: Normal speech, Normal tone, Reflexes 2+, Other (Quadriplegic) Psych/Mental Status: Mental status NL, Mood NL Labs/Xrays Labs Test 06/04/25 00:53 06/03/25 20:51 06/03/25 17:41 Range/Units Urine Color Yellow Yellow Urine Clarity Turbid H Clear Urine pH 6.5 5.0-9.0 Urine Specific [place] 1.018 1.001-1.035 Urine Protein Trace H Negative Urine Ketones Negative Negative Urine Blood Negative Negative /uL Urine Nitrite Negative Negative Urine Bilirubin Negative Negative Urine Urobilinogen Normal Negative mg/dL Urine Leukocyte Esterase 3+ Negative /uL Urine RBC 14 0 - 4 /hpf Urine WBC Clumps Present None Seen /hpf Urine Microscopic WBC 148 H 0-5 /HPF Urine Squamous Epithelial Cells Few <5 /hpf Urine Bacteria Many H None Seen /hpf Urine Glucose Normal Normal mg/dL Lactic Acid Level 2.2 *H 0.4-2.0 mmol/L White Blood Count 11.4 H 4.4-10.8 10^3/uL Red Blood Count 3.66 L 4.0-5.20 10^6/uL Hemoglobin 9.7 L 12.2-16.2 g/dL Hematocrit 29.9 L 36.0-46.0 % Mean Corpuscular Volume 81.5 80.0-100.0 fL Mean Corpuscular Hemoglobin 26.5 L 28.0-32.0 pg Mean Corpuscular Hemoglobin Concent 32.5 32.0-36.0 g/dL Red Cell Distribution Width 19.5 H 11.8-14.3 % Platelet Count 680 H 140-450 10^3/uL Mean Platelet Volume 7.4 6.9-10.8 fL Neutrophils (%) (Auto) 80.9 H 37.0-80.0 % Lymphocytes (%) (Auto) 9.4 L 10.0-50.0 % Monocytes (%) (Auto) 7.6 0.0-12.0 % Eosinophils (%) (Auto) 1.9 0.0-7.0 % Basophils (%) (Auto) 0.2 0.0-2.0 % Neutrophils # (Auto) 9.2 H 1.6-8.6 10 ^3/uL Lymphocytes # (Auto) 1.1 0.4-5.4 10 ^3/uL Monocytes # (Auto) 0.9 0-1.3 10 ^3/uL Eosinophils # (Auto) 0.2 0-0.8 10 ^3/uL Basophils # (Auto) 0 0-0.2 10 ^3/uL Nucleated Red Blood Cells 0.0 % Sodium Level 139 136-145 mmol/L Potassium Level 5.5 H 3.5-5.1 mmol/L Chloride Level 109 H 98-107 mmol/L Carbon Dioxide Level 21 20-31 mmol/L Anion Gap 9 5-15 Blood Urea Nitrogen 27 H 9-23 mg/dL Creatinine 0.57 0.550-1.02 mg/dL Glomerular Filtration Rate Calc 97 >90 mL/min BUN/Creatinine Ratio 47.4 H 10.0-20.0 Serum Glucose 143 H 74-106 mg/dL Calcium Level 10.1 8.7-10.4 mg/dL Total Bilirubin 0.2 0.2-1.0 mg/dL Aspartate Amino Transferase (AST) 31 13-40 U/L Alanine Aminotransferase (ALT) 28 7-40 U/L Alkaline Phosphatase 110 46-116 U/L Total Protein 6.5 5.7-8.2 g/dL Albumin 4.0 3.2-4.8 g/dL SEPSIS Sepsis Screen Date sepsis recognized/suspect: Jun 03, 2025 Time Sepsis recognized/suspect: 1709 Recent Procedure: No On Antibiotic Therapy: No Respiratory Rate >20: No Heart Rate >90: No Temp<36 C (96.8 F) or >38.3 C: No SBP <90 or MAP <65 mmHG: No New Acute Mental Status Change: No Is the patient on CPAP, BIPAP,: No Physician Orders [place] Iv (06/03/25 ) Complete Blood Count (06/04/25 04:00) Comprehensive Metabolic Panel (06/04/25 04:00) Ceftriaxone 1gm/50ml D5w (Rocephin) (06/04/25 09:00) Ceftriaxone 1gm/50ml D5w (Rocephin) (06/04/25 02:15) Vancomycin Per Pharmacy (06/04/25 02:15) Sodium Zirconium Cyclosilicate (Lokelma) (06/04/25 02:15) Type And Screen (06/04/25 02:02) [facility]Diabetes (06/04/25 Breakfast) Glucose Blood (Accu-Chek Comfort Curve T (06/04/25 07:00) Insulin R (Human) (Insulin R) (06/04/25 22:00) Insulin R (Human) (Insulin R) (06/04/25 07:00) Dextrose 50% Syringe (06/04/25 02:15) Admit (06/04/25 02:02) Allergies (06/04/25 02:02) Code Status (06/04/25 02:02) Sodium Chloride 0.9% (06/04/25 02:15) Oxygen Per Hour (06/04/25 02:02) Hydrocodone-Acet 5/325mg Tab ([place] 5/32 (06/04/25 02:15) Ondansetron Hcl (Zofran) (06/04/25 02:15) Docusate Sodium Capsule (Colace Capsule) (06/04/25 02:15) Fall Risk Precautions In Place QSHIFT (06/04/25 02:02) Complete Blood Count (06/05/25 04:00) Comprehensive Metabolic Panel (06/05/25 04:00) Condition: Serious (06/04/25 02:02) Acetaminophen Tablet (Tylenol Tablet) (06/04/25 02:15) Maintain Bed Rest (06/04/25 02:02) Sequential Compression Device (06/04/25 ) Nitroglycerin Sublingual (Ntrostat Subli (06/04/25 02:15) Morphine Sulfate Injection (06/04/25 02:15) Stat Ekg For Chest Pain (06/04/25 02:02) Notify Md Of Changes From Base (06/04/25 02:02) Social Service Director For 24 Hours (06/04/25 02:02) Emergency Dysrhythmia Protocol (06/04/25 02:02) Rhythm Strips Once Every Shift (06/04/25 02:02) Oxygen By Nasal Cannula (06/04/25 02:02) Vital Signs Date Time Temp Pulse Resp B/P (MAP) Pulse Ox O2 Delivery O2 Flow Rate FiO2 06/03/25 23:43 99.0 113 20 112/66 (81) 97 99.0 Laboratory Tests Test 06/03/25 17:41 06/03/25 20:51 Lactic Acid Level 2.6 mmol/L (0.4-2.0) *H 2.2 mmol/L (0.4-2.0) *H White Blood Count 11.4 10^3/uL (4.4-10.8) H Medications Medications Dose Ordered Sig/Adore Route Start Time Stop Time Status Last Admin Dose Admin Sodium Chloride 1,000 ml @ 1,000 mls/hr Q1H ONCE IV 06/03/25 22:45 06/03/25 23:44 DC 06/03/25 23:40 1,000 MLS/HR Assessment/Plan Assessment/Plan Anemia, unspecified Thrombocytosis Hyperkalemia Elevated lactic acid level Leukocytosis, unspecified Generalized weakness Plan 1. Admit to telemetry unit 2. Breathing treatment 3. Pain control management 4. IV antibiotic management 5. Management of fluids and electrolytes 6. Consultation for hospitalist 7. Diagnostic test chest x-ray 8. DVT prophylaxis-on SCDs 9. Repeat labs CBC, CMP in a.m. 10. Home medication reviewed and reconciled 11. Continue with current medical management 12. Treatment plan discussed with patient and RN. Patient verbalized understanding. Plan discussed with: Patient, Other (RN) My Orders Orders - JEOVANNY CANNON DNP Procedure Category Date Status Time Complete Blood Count LAB 06/04/25 Logged 04:00 Comprehensive LAB 06/04/25 Logged Metabolic Panel 04:00 Ceftriaxone 1gm/50ml PHA 06/04/25 Logged D5w (Rocephin) 09:00 Ceftriaxone 1gm/50ml PHA 06/04/25 Logged D5w (Rocephin) 02:15 Vancomycin Per PHA 06/04/25 Logged Pharmacy 02:15 Sodium Zirconium PHA 06/04/25 Logged Cyclosilicate 02:15 Type And Screen BBK 06/04/25 Logged 02:02 Consistent DIET 06/04/25 Transmitted Carb([facility])Diabetes Breakfast Glucose Blood PHA 06/04/25 Logged (Accu-Chek Comfort 07:00 Insulin R (Human) PHA 06/04/25 Logged (Insulin R) 22:00 Insulin R (Human) PHA 06/04/25 Logged (Insulin R) 07:00 Dextrose 50% Syringe PHA 06/04/25 Logged 02:15 Admit ADMIT 06/04/25 Transmitted 02:02 Allergies GLENDA 06/04/25 In Process 02:02 Code Status CODE 06/04/25 Transmitted 02:02 Sodium Chloride 0.9% PHA 06/04/25 Logged 02:15 Oxygen Per Hour RT 06/04/25 Transmitted 02:02 Hydrocodone-Acet [facility] 06/04/25 Logged 5/325mg Tab ([place] 02:15 Ondansetron Hcl [facility] 06/04/25 Logged (Zofran) 02:15 Docusate Sodium [facility] 06/04/25 Logged Capsule (Colace 02:15 Fall Risk Precautions [facility] 06/04/[address] 02:02 Complete Blood Count LAB 06/05/25 Verified 04:00 Comprehensive LAB 06/05/25 Verified Metabolic Panel 04:00 Condition: Serious [facility] 06/04/25 In Process 02:02 Acetaminophen Tablet [facility] 06/04/25 Logged (Tylenol Tablet) 02:15 Maintain Bed Rest [facility] 06/04/25 In Process 02:02 Sequential [facility] 06/04/25 In Process Compression Device Nitroglycerin [facility] 06/04/25 Logged Sublingual (Ntrostat 02:15 Morphine Sulfate [facility] 06/04/25 Logged Injection 02:15 Stat Ekg For Chest [facility] 06/04/25 In Process Pain 02:02 Notify Md Of Changes [facility] 06/04/25 In Process From Base 02:02 Social Service Director For [facility] 06/04/25 In Process 24 Hours 02:02 Emergency Dysrhythmia [facility] 06/04/25 In Process Protocol 02:02 Rhythm Strips Once [facility] 06/04/25 In Process Every Shift 02:02 Oxygen By Nasal 06/04/25 Transmitted Cannula 02:02 Problem List: (1) Anemia, unspecified (2) Thrombocytosis (3) Hyperkalemia (4) Leukocytosis, unspecified (5) Elevated lactic acid level (6) Generalized weakness Date of Service: Jun 04, 2025 Billing Provider: JEOVANNY CANNON DNP Common Visit Codes: [id number] INP/OBS CARE (HIGH) JEOVANNY CANNON DNP Jun 04, 2025 02:30
[2025-06-04] MEDS ORDERED: VANCOMYCIN 1GM/200ML PM 200 ML IV ONE (02:45)
[2025-06-04 02:59] LABS: Hemoglobin 8.5 g/dL (12.2-16.2); Nucleated Red Blood Cells % 0.0 %
[2025-06-04 03:01] LABS: Hematocrit 25.9 % (36.0-46.0); Mean Corpuscular Hemoglobin 27.1 pg (28.0-32.0); Mean Corpuscular Volume 82.6 fL (80.0-100.0)
[2025-06-04 03:10] LABS: Alanine Aminotransferase 22 U/L (7-40); Albumin 3.2 g/dL (3.2-4.8); Alkaline Phosphatase 82 U/L (46-116); Anion Gap 7 (5-15); BUN/Creatinine Ratio 48.8 (10.0-20.0); Blood Urea Nitrogen 21 mg/dL (9-23); Glucose 96 mg/dL (74-106); Potassium 4.1 mmol/L (3.5-5.1); Sodium 141 mmol/L (136-145)
[2025-06-04 03:11] LABS: Bilirubin, Total 0.2 mg/dL (0.2-1.0); Calcium 8.4 mg/dL (8.7-10.4); Carbon Dioxide 20 mmol/L (20-31); Chloride 114 mmol/L (98-107); Total Protein 5.3 g/dL (5.7-8.2)
[2025-06-04] MEDS: SODIUM ZIRCONIUM CYCL 10 GM PAK PO ONE (03:39)
[2025-06-04] MEDS: cefTRIAXone 1GM/50ML D5W 50 ML IV ONE (03:39)
[2025-06-04] MEDS: InsuLIN REG 1unit/0.01ml Soln (100units/ml) SC SCH ×2 (07:00→22:00)
[2025-06-04] MEDS: ACCU-CHEK COMFORT CURVE STRIP VI SCH (07:00)
[2025-06-04] MEDS: cefTRIAXone 1GM/50ML D5W 50 ML IV SCH (09:00)
[2025-06-04] MEDS: SODIUM CHLORIDE 0.9% 1,000 ML IV SCH (10:57)
[2025-06-04] MEDS: VANCOMYCIN 1GM/250ML KIT 250 ML IV SCH (10:58)
--- NOTE | 2025-06-04 12:40 | DVHPN2 ---
Reviewed: Care Plan, H&P, Labs, Medications, Previous Orders, Radiology Changes from previous H/P or p: No Changes Eyes: No Pain, No Vision change, No Conjunctivae inflammation, No Eyelid inflammation, No Other, No Redness ENT: No Ear pain, No Ear discharge, No Nose pain, No Nose discharge, No Nose congestion, No Mouth pain, No Mouth swelling, No Throat pain, No Throat swelling, No Other Cardiovascular: No Chest Pain, No Palpitations, No Orthopnea, No Paroxysmal Noc. Dyspnea, No Edema, No Lt Headedness, No Other Respiratory: No Cough, No Dry, No Shortness of breath, No SOB with excertion, No Wheezing, No Hemoptysis, No Pleuritic Pain, No Sputum, No Other Gastrointestinal: No Nausea, No Vomiting, No Abdominal Pain, No Diarrhea, No Constipation, No Melena, No Hematochezia, No Other Genitourinary: No Dysuria, No Frequency, No Incontinence, No Hematuria, No Retention, No Other Musculoskeletal: No other, No neck pain, No shoulder pain, No arm pain, No back pain, No hand pain, No leg pain, No foot pain Skin: No Rash, No Lesions, No Jaundice, No Bruising, No Other Objective Vitals Vital Signs Date Time Temp Pulse Resp B/P (MAP) Pulse Ox O2 Delivery O2 Flow Rate FiO2 06/03/25 23:43 99.0 113 20 112/66 (81) 97 99.0 Medications Current Medications Medications Dose Ordered Sig/Adore Route Start Time Stop Time Status Last Admin Dose Admin Ceftriaxone Sodium 50 ml @ 100 mls/hr DAILY@09 IV 06/04/25 09:00 Vancomycin HCl 0 ml @ 0 mls/hr UD IV 06/04/25 02:15 Diagnostic Test (Pha) 1 strip ACHS 06/04/25 07:00 06/04/25 07:00 1 STRIP Insulin Human Regular HS SC 06/04/25 22:00 Insulin Human Regular AC SC 06/04/25 07:00 Dextrose 50 ml UD PRN IV 06/04/25 02:15 Sodium Chloride 1,000 ml @ 60 mls/hr [id number] IV 06/04/25 02:15 Acetaminophen/ Hydrocodone Bitart 1 tab Q4HP PRN PO 06/04/25 02:15 Ondansetron HCl 4 mg Q4HP PRN IV 06/04/25 02:15 Docusate Sodium 100 mg BIDPRN PRN PO 06/04/25 02:15 Acetaminophen 650 mg Q6HP PRN PO 06/04/25 02:15 Nitroglycerin 0.4 mg Q5MINP PRN SL 06/04/25 02:15 Morphine Sulfate 2 mg Q30M PRN IV 06/04/25 02:15 Vancomycin HCl 250 ml @ 250 mls/hr DAILY IV 06/04/25 10:12 06/04/25 10:58 250 MLS/HR Laboratory Results Laboratory Tests 06/04/25 02:30 Chemistry Test 06/03/25 17:41 06/04/25 02:30 Albumin 4.0 g/dL (3.2-4.8) 3.2 g/dL (3.2-4.8) Calcium Level 10.1 mg/dL (8.7-10.4) 8.4 mg/dL (8.7-10.4) L Total Protein 6.5 g/dL (5.7-8.2) 5.3 g/dL (5.7-8.2) L LFT Test 06/03/25 17:41 06/04/25 02:30 Alanine Aminotransferase (ALT) 28 U/L (7-40) 22 U/L (7-40) Alkaline Phosphatase 110 U/L (46-116) 82 U/L (46-116) Aspartate Amino Transferase (AST) 31 U/L (13-40) 24 U/L (13-40) Total Bilirubin 0.2 mg/dL (0.2-1.0) 0.2 mg/dL (0.2-1.0) Urinalysis Test 06/04/25 00:53 Urine Color Yellow (Yellow) Urine Clarity Turbid (Clear) H Urine pH 6.5 (5.0-9.0) Urine Specific [place] 1.018 (1.001-1.035) Urine Protein Trace (Negative) H Urine Ketones Negative (Negative) Urine Blood Negative /uL (Negative) Urine Nitrite Negative (Negative) Urine Bilirubin Negative (Negative) Urine Urobilinogen Normal mg/dL (Negative) Urine Leukocyte Esterase 3+ /uL (Negative) Urine RBC 14 /hpf (0 - 4) Urine WBC Clumps Present /hpf (None Seen) Urine Microscopic WBC 148 /HPF (0-5) H Urine Squamous Epithelial Cells Few /hpf (<5) Urine Bacteria Many /hpf (None Seen) H Urine Glucose Normal mg/dL (Normal) Labs and/or images reviewed: Labs reviewed by me, Image(s) reviewed by me Assessment/Plan Assessment/Plan Sepsis secondary to urinary tract infection: Blood cultures urine cultures Rocephin Acute generalized weakness Diabetes Acute Lactic acidosis History of ovarian cyst Quadriplegia Bed-bound Patient came from [place] [facility] PCP Dr Butler Time spent 70 minutes Advanced care planning time 20 minutes Patient is full code Plan discussed with: Patient My Orders Orders - KENRICK DE LA ROSA MD Procedure Category Date Status Time Blood Culture OSITO 06/04/25 Verified 12:38 Urine Bacterial OSITO 06/04/25 Verified Culture 12:38 Date of Service: Jun 04, 2025 Billing Provider: KENRICK DE LA ROSA MD Common Visit Codes: [id number] CARE 30-74 MIN KENRICK DE LA ROSA MD Jun 04, 2025 12:40
[2025-06-04] MEDS: HYDROcodone-ACET 5/325MG TAB PO PRN (13:33)
[2025-06-04 16:15] VITALS: BP 137/66; PULSE 106; RESP 18; TEMP 98.6; O2SAT 99
[2025-06-04 16:29] VITALS: BP 137/66; PULSE 106; RESP 18; TEMP 98.6; O2SAT 99
[2025-06-04 20:00] VITALS: PULSE 102
[2025-06-04 21:00] VITALS: BP 139/73; PULSE 102; RESP 17; TEMP 97; O2SAT 99
[2025-06-05 06:46] LABS: Hematocrit 24.5 % (36.0-46.0); Hemoglobin 8.1 g/dL (12.2-16.2); Mean Corpuscular Hemoglobin 27.7 pg (28.0-32.0); Mean Corpuscular Volume 83.9 fL (80.0-100.0); Nucleated Red Blood Cells % 0.0 %
[2025-06-05 06:57] LABS: Alanine Aminotransferase 22 U/L (7-40); Albumin 3.3 g/dL (3.2-4.8); Alkaline Phosphatase 78 U/L (46-116); Anion Gap 10 (5-15); BUN/Creatinine Ratio 35.3 (10.0-20.0); Blood Urea Nitrogen 12 mg/dL (9-23); Glucose 96 mg/dL (74-106); Sodium 141 mmol/L (136-145)
[2025-06-05 06:58] LABS: Bilirubin, Total 0.2 mg/dL (0.2-1.0); Calcium 8.3 mg/dL (8.7-10.4); Carbon Dioxide 18 mmol/L (20-31); Chloride 113 mmol/L (98-107); Potassium 3.4 mmol/L (3.5-5.1); Total Protein 5.3 g/dL (5.7-8.2)
[2025-06-05 08:00] VITALS: PULSE 96
--- NOTE | 2025-06-05 08:19 | DVHPN2 ---
Reviewed: Care Plan, H&P, Labs, Medications, Previous Orders, Radiology Changes from previous H/P or p: No Changes Eyes: No Pain, No Vision change, No Conjunctivae inflammation, No Eyelid inflammation, No Other, No Redness ENT: No Ear pain, No Ear discharge, No Nose pain, No Nose discharge, No Nose congestion, No Mouth pain, No Mouth swelling, No Throat pain, No Throat swelling, No Other Cardiovascular: No Chest Pain, No Palpitations, No Orthopnea, No Paroxysmal Noc. Dyspnea, No Edema, No Lt Headedness, No Other Respiratory: No Cough, No Dry, No Shortness of breath, No SOB with excertion, No Wheezing, No Hemoptysis, No Pleuritic Pain, No Sputum, No Other Gastrointestinal: No Nausea, No Vomiting, No Abdominal Pain, No Diarrhea, No Constipation, No Melena, No Hematochezia, No Other Genitourinary: No Dysuria, No Frequency, No Incontinence, No Hematuria, No Retention, No Other Musculoskeletal: No other, No neck pain, No shoulder pain, No arm pain, No back pain, No hand pain, No leg pain, No foot pain Skin: No Rash, No Lesions, No Jaundice, No Bruising, No Other Objective Vitals Vital Signs Date Time Temp Pulse Resp B/P (MAP) Pulse Ox O2 Delivery O2 Flow Rate FiO2 06/04/25 21:00 97.0 102 17 139/73 (95) 99 97.0 06/04/25 20:00 Room Air* 0 21 Intake/Output Intake and Output 06/05/25 07:00 Intake Total 1030 ml Output Total 1950 ml Balance -920 ml Intake Oral 1030 ml Output Urine Total 1950 ml # Bowel Movements 3 Medications Current Medications Medications Dose Ordered Sig/Adore Route Start Time Stop Time Status Last Admin Dose Admin Ceftriaxone Sodium 50 ml @ 100 mls/hr DAILY@09 IV 06/04/25 09:00 Vancomycin HCl 0 ml @ 0 mls/hr UD IV 06/04/25 02:15 Diagnostic Test (Pha) 1 strip ACHS 06/04/25 07:00 06/04/25 17:02 1 STRIP Insulin Human Regular HS SC 06/04/25 22:00 Insulin Human Regular AC SC 06/04/25 07:00 Dextrose 50 ml UD PRN IV 06/04/25 02:15 Sodium Chloride 1,000 ml @ 60 mls/hr [id number] IV 06/04/25 02:15 06/04/25 18:03 60 MLS/HR Acetaminophen/ Hydrocodone Bitart 1 tab Q4HP PRN PO 06/04/25 02:15 06/04/25 22:31 1 TAB Ondansetron HCl 4 mg Q4HP PRN IV 06/04/25 02:15 Docusate Sodium 100 mg BIDPRN PRN PO 06/04/25 02:15 Acetaminophen 650 mg Q6HP PRN PO 06/04/25 02:15 Nitroglycerin 0.4 mg Q5MINP PRN SL 06/04/25 02:15 Morphine Sulfate 2 mg Q30M PRN IV 06/04/25 02:15 Vancomycin HCl 250 ml @ 250 mls/hr DAILY IV 06/04/25 10:12 06/04/25 10:58 250 MLS/HR Trazodone HCl 50 mg HS PO 06/05/25 22:00 Laboratory Results Laboratory Tests 06/05/25 04:59 Chemistry Test 06/05/25 04:59 Albumin 3.3 g/dL (3.2-4.8) Calcium Level 8.3 mg/dL (8.7-10.4) L Total Protein 5.3 g/dL (5.7-8.2) L LFT Test 06/05/25 04:59 Alanine Aminotransferase (ALT) 22 U/L (7-40) Alkaline Phosphatase 78 U/L (46-116) Aspartate Amino Transferase (AST) 26 U/L (13-40) Total Bilirubin 0.2 mg/dL (0.2-1.0) Urinalysis Test 06/04/25 00:53 Urine Color Yellow (Yellow) Urine Clarity Turbid (Clear) H Urine pH 6.5 (5.0-9.0) Urine Specific [place] 1.018 (1.001-1.035) Urine Protein Trace (Negative) H Urine Ketones Negative (Negative) Urine Blood Negative /uL (Negative) Urine Nitrite Negative (Negative) Urine Bilirubin Negative (Negative) Urine Urobilinogen Normal mg/dL (Negative) Urine Leukocyte Esterase 3+ /uL (Negative) Urine RBC 14 /hpf (0 - 4) Urine WBC Clumps Present /hpf (None Seen) Urine Microscopic WBC 148 /HPF (0-5) H Urine Squamous Epithelial Cells Few /hpf (<5) Urine Bacteria Many /hpf (None Seen) H Urine Glucose Normal mg/dL (Normal) Labs and/or images reviewed: Labs reviewed by me, Image(s) reviewed by me Assessment/Plan Assessment/Plan Sepsis secondary to urinary tract infection: Blood cultures pending urine cultures pending continue Rocephin Acute generalized weakness, Diabetes: Insulin sliding scale Acute Lactic acidosis History of ovarian cyst Quadriplegia Bed-bound Patient came from [place] [facility] PCP Dr Butler Time spent 50 minutes Advanced care planning time 20 minutes Patient is full code Amanda test pending Flu test pending Plan discussed with: Patient My Orders Orders - KENRICK DE LA ROSA MD Procedure Category Date Status Time Blood Culture OSITO 06/04/25 In Process 12:38 Urine Bacterial OSITO 06/04/25 In Process Culture 12:38 * Wound Consult CONS 06/04/25 Transmitted Date of Service: Jun 05, 2025 Billing Provider: KENRICK DE LA ROSA MD Common Visit Codes: [id number] INP/OBS CARE(HIGH) KENRICK DE LA ROSA MD Jun 05, 2025 08:19
[2025-06-05 08:30] VITALS: BP 139/80; PULSE 103; RESP 18; TEMP 97.3; O2SAT 98
[2025-06-05 13:30] VITALS: BP 132/62; PULSE 90; RESP 17; TEMP 98.1; O2SAT 99
[2025-06-05 17:30] VITALS: BP 137/65; PULSE 93; RESP 17; TEMP 98.6; O2SAT 97
[2025-06-05 20:00] VITALS: PULSE 88
[2025-06-05 21:00] VITALS: BP 152/70; PULSE 88; RESP 18; TEMP 97.9; O2SAT 98
[2025-06-05] MEDS: ONDANSETRON HCL 4 MG/2 ML VIAL IV PRN (21:15)
[2025-06-06] VITALS (9 sets, daily range): BP systolic 122–151; BP diastolic 67–83; PULSE 83–98; RESP 14–18; TEMP 97.8–100.1; O2SAT 94–99
[2025-06-06 06:53] LABS: COVID19 ANTIGEN SOFIA FIA NEGATIVE (NEGATIVE)
--- NOTE | 2025-06-06 09:29 | DVHPN2 ---
Reviewed: Care Plan, H&P, Labs, Medications, Previous Orders, Radiology Changes from previous H/P or p: No Changes Eyes: No Pain, No Vision change, No Conjunctivae inflammation, No Eyelid inflammation, No Other, No Redness ENT: No Ear pain, No Ear discharge, No Nose pain, No Nose discharge, No Nose congestion, No Mouth pain, No Mouth swelling, No Throat pain, No Throat swelling, No Other Cardiovascular: No Chest Pain, No Palpitations, No Orthopnea, No Paroxysmal Noc. Dyspnea, No Edema, No Lt Headedness, No Other Respiratory: No Cough, No Dry, No Shortness of breath, No SOB with excertion, No Wheezing, No Hemoptysis, No Pleuritic Pain, No Sputum, No Other Gastrointestinal: No Nausea, No Vomiting, No Abdominal Pain, No Diarrhea, No Constipation, No Melena, No Hematochezia, No Other Genitourinary: No Dysuria, No Frequency, No Incontinence, No Hematuria, No Retention, No Other Musculoskeletal: No other, No neck pain, No shoulder pain, No arm pain, No back pain, No hand pain, No leg pain, No foot pain Skin: No Rash, No Lesions, No Jaundice, No Bruising, No Other Objective Vitals Vital Signs Date Time Temp Pulse Resp B/P (MAP) Pulse Ox O2 Delivery O2 Flow Rate FiO2 06/06/25 08:40 98.1 98 14 150/74 (99) 98 98.1 06/05/25 20:00 Room Air* 0 21 Intake/Output Intake and Output 06/06/25 07:00 Intake Total 2040 ml Output Total 1450 ml Balance 590 ml Intake Oral 1740 ml IV Total 300 ml Output Urine Total 1450 ml # Voids 5 Medications Current Medications Medications Dose Ordered Sig/Adore Route Start Time Stop Time Status Last Admin Dose Admin Ceftriaxone Sodium 50 ml @ 100 mls/hr DAILY@09 IV 06/04/25 09:00 06/05/25 12:29 100 MLS/HR Vancomycin HCl 0 ml @ 0 mls/hr UD IV 06/04/25 02:15 Diagnostic Test (Pha) 1 strip ACHS 06/04/25 07:00 06/04/25 17:02 1 STRIP Insulin Human Regular HS SC 06/04/25 22:00 Insulin Human Regular AC SC 06/04/25 07:00 Dextrose 50 ml UD PRN IV 06/04/25 02:15 Sodium Chloride 1,000 ml @ 60 mls/hr [id number] IV 06/04/25 02:15 06/06/25 05:23 60 MLS/HR Acetaminophen/ Hydrocodone Bitart 1 tab Q4HP PRN PO 06/04/25 02:15 06/05/25 18:03 1 TAB Ondansetron HCl 4 mg Q4HP PRN IV 06/04/25 02:15 06/05/25 21:15 4 MG Docusate Sodium 100 mg BIDPRN PRN PO 06/04/25 02:15 Acetaminophen 650 mg Q6HP PRN PO 06/04/25 02:15 Nitroglycerin 0.4 mg Q5MINP PRN SL 06/04/25 02:15 Morphine Sulfate 2 mg Q30M PRN IV 06/04/25 02:15 Vancomycin HCl 250 ml @ 250 mls/hr DAILY IV 06/04/25 10:12 06/05/25 11:06 250 MLS/HR Trazodone HCl 50 mg HS PO 06/05/25 22:00 06/05/25 21:16 50 MG Laboratory Results Laboratory Tests 06/05/25 04:59 06/06/25 07:20 Urinalysis Test 06/04/25 00:53 Urine Color Yellow (Yellow) Urine Clarity Turbid (Clear) H Urine pH 6.5 (5.0-9.0) Urine Specific [place] 1.018 (1.001-1.035) Urine Protein Trace (Negative) H Urine Ketones Negative (Negative) Urine Blood Negative /uL (Negative) Urine Nitrite Negative (Negative) Urine Bilirubin Negative (Negative) Urine Urobilinogen Normal mg/dL (Negative) Urine Leukocyte Esterase 3+ /uL (Negative) Urine RBC 14 /hpf (0 - 4) Urine WBC Clumps Present /hpf (None Seen) Urine Microscopic WBC 148 /HPF (0-5) H Urine Squamous Epithelial Cells Few /hpf (<5) Urine Bacteria Many /hpf (None Seen) H Urine Glucose Normal mg/dL (Normal) Microbiology Microbiology Date/Time Source Procedure Growth Status 06/04/25 13:41 Blood Blood Culture - Preliminary NO GROWTH AFTER 24 HOURS OF INCUBATION. Resulted 06/04/25 00:53 Voided Urine Urine Culture - Preliminary Resulted Labs and/or images reviewed: Labs reviewed by me, Image(s) reviewed by me Assessment/Plan Assessment/Plan Sepsis secondary to urinary tract infection: Blood cultures negative urine cultures pending continue Rocephin Acute generalized weakness, Diabetes: Insulin sliding scale Acute Lactic acidosis History of ovarian cyst Quadriplegia Bed-bound Unstageable decubitus ulcers sacrum Patient came from [place] [facility] PCP Dr Butler Time spent 50 minutes Advanced care planning time 20 minutes Amanda test negative Flu test neg Per patient she has no more SNF days left and requesting to be discharged home on home health tomorrow Plan discussed with: Patient My Orders Orders - KENRICK DE LA ROSA MD Procedure Category Date Status Time Notify Provider NOTICE 06/05/25 Transmitted Malnutrition 09:30 Nutritional NOURISH 06/05/25 Transmitted Supplements 09:30 Dietary NOTICE 06/05/25 Transmitted Recommendations 09:30 Cleanse Wound With GLENDA 06/05/25 In Process Wound Clean 14:16 * Dietary Consult CONS 06/06/25 Transmitted Date of Service: Jun 06, 2025 Billing Provider: KENRICK DE LA ROSA MD Common Visit Codes: [id number] INP/OBS CARE(HIGH) KENRICK DE LA ROSA MD Jun 06, 2025 09:29
[2025-06-07] VITALS (7 sets, daily range): BP systolic 131–144; BP diastolic 61–76; PULSE 78–98; RESP 18–20; TEMP 36.8; O2SAT 96–98
[2025-06-07] MEDS ORDERED: HYDR-4902 PO (09:36)
[2025-06-07] MEDS ORDERED: TRAZ1TAB12 PO (09:36)
[2025-06-07] MEDS ORDERED: CIPR-173 PO (09:36)
--- NOTE | 2025-06-07 09:42 | DVHDS2 ---
Discharge Summary Date of Admission Jun 04, 2025 at 02:02 Date of Discharge: Jun 07, 2025 Admitting Diagnosis Altered mental status Wounds: Unstageable decubitus ulcers back Labs/Diagnostic Data: Laboratory Results Test 06/06/25 07:20 06/06/25 04:30 06/05/25 04:59 06/04/25 17:01 Creatinine 0.36 mg/dL (0.550-1.02) Glomerular Filtration Rate Calc 108 mL/min (>90) Influenza Type A Antigen Negative (Negative) Influenza Type B Antigen Negative (Negative) SARS-CoV-2 Antigen (Rapid) Negative (NEGATIVE) White Blood Count 10.9 10^3/uL (4.4-10.8) Red Blood Count 2.92 10^6/uL (4.0-5.20) Hemoglobin 8.1 g/dL (12.2-16.2) Hematocrit 24.5 % (36.0-46.0) Mean Corpuscular Volume 83.9 fL (80.0-100.0) Mean Corpuscular Hemoglobin 27.7 pg (28.0-32.0) Mean Corpuscular Hemoglobin Concent 33.0 g/dL (32.0-36.0) Red Cell Distribution Width 19.0 % (11.8-14.3) Platelet Count 498 10^3/uL (140-450) Mean Platelet Volume 7.8 fL (6.9-10.8) Neutrophils (%) (Auto) 79.2 % (37.0-80.0) Lymphocytes (%) (Auto) 10.1 % (10.0-50.0) Monocytes (%) (Auto) 6.0 % (0.0-12.0) Eosinophils (%) (Auto) 4.2 % (0.0-7.0) Basophils (%) (Auto) 0.5 % (0.0-2.0) Neutrophils # (Auto) 8.7 10 ^3/uL (1.6-8.6) Lymphocytes # (Auto) 1.1 10 ^3/uL (0.4-5.4) Monocytes # (Auto) 0.7 10 ^3/uL (0-1.3) Eosinophils # (Auto) 0.5 10 ^3/uL (0-0.8) Basophils # (Auto) 0.1 10 ^3/uL (0-0.2) Nucleated Red Blood Cells 0.0 % Sodium Level 141 mmol/L (136-145) Potassium Level 3.4 mmol/L (3.5-5.1) Chloride Level 113 mmol/L (98-107) Carbon Dioxide Level 18 mmol/L (20-31) Anion Gap 10 (5-15) Blood Urea Nitrogen 12 mg/dL (9-23) BUN/Creatinine Ratio 35.3 (10.0-20.0) Serum Glucose 96 mg/dL (74-106) Calcium Level 8.3 mg/dL (8.7-10.4) Total Bilirubin 0.2 mg/dL (0.2-1.0) Aspartate Amino Transferase (AST) 26 U/L (13-40) Alanine Aminotransferase (ALT) 22 U/L (7-40) Alkaline Phosphatase 78 U/L (46-116) Total Protein 5.3 g/dL (5.7-8.2) Albumin 3.3 g/dL (3.2-4.8) POC Glucose 118 mg/dl (70-106) Test 06/04/25 00:53 06/03/25 20:51 Urine Color Yellow (Yellow) Urine Clarity Turbid (Clear) Urine pH 6.5 (5.0-9.0) Urine Specific [place] 1.018 (1.001-1.035) Urine Protein Trace (Negative) Urine Ketones Negative (Negative) Urine Blood Negative /uL (Negative) Urine Nitrite Negative (Negative) Urine Bilirubin Negative (Negative) Urine Urobilinogen Normal mg/dL (Negative) Urine Leukocyte Esterase 3+ /uL (Negative) Urine RBC 14 /hpf (0 - 4) Urine WBC Clumps Present /hpf (None Seen) Urine Microscopic WBC 148 /HPF (0-5) Urine Squamous Epithelial Cells Few /hpf (<5) Urine Bacteria Many /hpf (None Seen) Urine Glucose Normal mg/dL (Normal) Lactic Acid Level 2.2 mmol/L (0.4-2.0) Other Laboratory Tests 06/06/25 07:20 06/05/25 04:59 Brief Hx & Hospital Course: 70-year-old female sent from [place] [facility] for altered mental status and confusion found to have sepsis secondary to urinary tract infection blood cultures negative urine cultures were mixed treated with Rocephin patient has diabetes and also history of ovarian cyst and quadriplegia and bed-bound treated unstageable decubitus ulcers in the sacrum seen by the wound care. Being discharged on home health for wound care for decubitus ulcers physical therapy and medication management. Prescription for Cipro trazodone [place] transmitted to pharmacy. Consults/Reason for consult Wound Care consult Operations or Procedures None Condition at Discharge: Fair Final Diagnosis/Problems List Sepsis secondary to urinary tract infection: Blood cultures negative urine cultures pending continue Rocephin Acute generalized weakness, Diabetes: Insulin sliding scale Acute Lactic acidosis History of ovarian cyst Quadriplegia Bed-bound Unstageable decubitus ulcers sacrum Discharge Disposition: Home with Health Services Discharge Instruct/Medications Diet: Consistent carbohydrate Activity: Light activity Follow Up/Referral: Follow up with your primary Dr Olivares all previous home medications Medications: Cipro Trazodone [place] Transmitted to [facility] Scheduled Celecoxib (Celebrex), 1 CAP PO BID, (Reported) Cholecalciferol (Vitamin D3), 5,000 UNIT PO DAILY, (Reported) Ciprofloxacin Hcl (Cipro), 1 TAB PO BID Duloxetine Hcl (Cymbalta), 1 CAP PO DAILY, (Reported) Metformin Hydrochloride (Metformin Hcl), 500 MG PO DAILY, (Reported) Mirtazapine (Remeron), 1 TAB PO HS, (Reported) Oxybutynin Chloride (Ditropan Xl), 5 MG PO TID, (Reported) Tizanidine Hydrochloride (Zanaflex), 1 CAP PO HS, (Reported) Trazodone Hcl (Trazodone Hcl), 1 TAB PO QPM Scheduled PRN Hydrocodone-Acetaminophen (Hydrocodone Bitartrate/AC 5-325 mg), 1 TAB PO QID PRN Miscellaneous Medications Ascorbic Acid (Vitamin C), 500 MG PO, (Reported) Iron Glycinate (Iron), 18 MG PO, (Reported) 39 (Time taken for discharge summary 39 minutes) Discharge Statement: "Patient was advised to return to the ER or call 911 if any headaches, dizziness, shortness of breath, chest pain, abdominal pain, bleeding, fevers, or worsening of medical condition. Patient was counseled about treatment plan, medications, possible side effects, patientverbalized understanding. All questions were answered to the best of my ability. This discharge took greater then 30 minutes in planning, reviewing documentation, counseling the patient, and discussing with other team members." ASSESSMENT ASSESSMENT Hospital Course Marginally improved Assessment Sepsis secondary to urinary tract infection: Blood cultures negative urine cultures pending continue Rocephin Acute generalized weakness, Diabetes: Insulin sliding scale Acute Lactic acidosis History of ovarian cyst Quadriplegia Bed-bound Unstageable decubitus ulcers sacrum Date of Service: Jun 07, 2025 Billing Provider: KENRICK DE LA ROSA MD Common Visit Codes: [id number] DISCH DAY >30min KENRICK DE LA ROSA MD Jun 07, 2025 09:42
[2025-06-07] MEDS ORDERED: VANCOMYCIN 1GM/200ML PM 200 ML IV SCH (13:00)
[2025-06-07] MEDS: VANCOMYCIN 1GM/250ML KIT 250 ML IV SCH (13:45)
== END 2025-06-07 19:25 | disposition home health service (06) | DRG 871 ==
LOC: EDBD 17:05 → ER 17:05 → OVERFLOW 06-04 02:02 → CENTRAL 06-04 17:08 → TELE-CENTR 06-04 17:28
PROVIDERS: ADMIT Family Medicine; ATTEND Family Medicine
DX: A41.9 Sepsis, unspecified organism (principal); G82.50 Quadriplegia, unspecified; L89.154 Pressure ulcer of sacral region, stage 4; N39.0 Urinary tract infection, site not specified; E87.21 Acute metabolic acidosis; Z20.822 Contact with and (suspected) exposure to COVID-19; E87.5 Hyperkalemia; E11.9 Type 2 diabetes mellitus without complications; D64.9 Anemia, unspecified; D75.839 Thrombocytosis, unspecified; Z74.01 Bed confinement status
CPT/HCPCS: 36415; 80053; 80202; 81001; 82565; 82962; 83605; 85025; 86850; 86900; 86901; 87040; 87086; 87426; 87804; 96360; 97163; G0378; J2405